=== PATIENT | male | born 1960 | race Caucasian/White ===

== ENCOUNTER 2024-09-18 14:20 | Outpatient (AMB) | payer OTHER, SELFPAY ==
--- OUTSIDE RECORDS SUMMARY | 2024-09-18 14:22 | XMS_ITS | Patient Health Record ---
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 ug/mL Albumin,Urine mg/day 26 0-29 mg/day Normal: 0 - 29 Moderately increased: 30 - 300 Severely increased: >300 Comp. Metabolic Panel ([id number] Reviewed date:09/14/2024 07:58:10 AM Interpretation: Performing Lab:[facility], [address] [facility], Phone - [phone], Director - MDJodry Notes/Report: Glucose 102 70-99 mg/dL BUN 35 8-27 mg/dL Creatinine 2.56 0.76-1.27 mg/dL eGFR 27 >59 mL/min/1.73 BUN/Creatinine Ratio 14 10-24 Sodium 142 134-144 mmol/L Potassium 4.1 3.5-5.2 mmol/L Chloride 105 96-106 mmol/L Anion Gap 15.0 10.0-18.0 mmol/L Carbon Dioxide, Total 22 20-29 mmol/L Calcium 9.1 8.6-10.2 mg/dL Protein, Total 6.5 6.0-8.5 g/dL Albumin 4.5 3.9-4.9 g/dL Globulin, Total 2.0 1.5-4.5 g/dL Bilirubin, Total 0.3 0.0-1.2 mg/dL Alkaline Phosphatase 58 44-121 IU/L AST (SGOT) 18 0-40 IU/L ALT (SGPT) 12 0-44 IU/L LP+Non-HDL Cholesterol-[id number] 5 Reviewed date:09/14/2024 07:58:17 AM Interpretation: Performing Lab:[facility], [address] [facility], Phone - [phone], Director - MDJodry Notes/Report: Cholesterol, Total 159 100-199 mg/dL Triglycerides 83 0-149 mg/dL HDL Cholesterol 54 >39 mg/dL VLDL Cholesterol Danny 16 5-40 mg/dL LDL Chol Calc (NIH) 89 0-99 mg/dL Non-HDL Cholesterol 105 0-129 mg/dL Prostate-Specific Ag-[id number] Reviewed date:09/14/2024 07:57:35 AM Interpretation: Performing Lab:[facility], [address] [facility], [place], Phone - [phone], Director - MDJodry Notes/Report: Prostate Specific Ag 7.1 0.0-4.0 ng/mL [place] ECLIA methodology. . According to the [employer], Serum PSA should decrease and remain at undetectable levels after radical prostatectomy. The AUA defines biochemical recurrence as an initial PSA value 0.2 ng/mL or greater followed by a subsequent confirmatory PSA value 0.2 ng/mL or greater. Values obtained with different assay methods or kits cannot be used interchangeably. Results cannot be interpreted as absolute evidence of the presence or absence of malignant disease. Reason For Referral Reason acute renal failure please send to Dr. Rocky Beard Diagnosis 1 Acute kidney failure , unspecified (N17.9) Referral Organization [facility] Referring Provider First Name Lois Referring Provider Last Name Olamide Referring Provider Speciality Internal M edicine Referred Provider Specialty Nephrology General Notes Faxed to [facility] I called the office to make an appt but the referral has to be reviewed prior to scheduling per Rene Christianson Kayla 09/14/2024 03:55:43 PM > Referral Priority Urgent Reason elevated PSA of 7.1 with renal failure Diagnosis 1 Elevated prostate sp ecific antigen [PSA] (R97.20) Referral Organization [facility] Referring Provider First Name Lois Referring Provider Last Name Olamide Referring Provider Speciality Internal M edicine Referred Provider Specialty Urology General Notes referral faxed to [facility], Judy Page 09/17/2024 11:15:37 AM > Referral Priority Routine Medications Medication SIG (Take, Route, Frequency, Duration) Notes Start Date End Date Status amLODIPine Besylate 5 MG 1 tablet Orally Once a day for 30 days 09/14/2024 Active Immunizations Vaccine Route Administration Date Status Comme nts COVID Unknown 12/14/2020 Administered COVID Unknown 01/04/2021 Administered Social History Tobacco Use: Social History Observation Description Date Details (start date - stop date) Never Smoker NA - NA Tobacco Use/Smoking Question Answer Notes Are you a nonsmoker Alcohol Screen (Audit-C) Question Answer Notes Did you have a drink containing alcohol in the p ast year? No Points 0 Interpretation Negative Problems Problem Type SNOMED Code ICD Code Onset Dates Problem Status W/U Status Risk Notes Problem Essential hypertension (33536187) Essential (primary) hypertension (I10) Active confirmed Problem Essential hypertension (34387782) HTN (hypertension), benign (I10) Active confirmed Vital Signs Heart Rate 88 /min 09/14/2024 Temperature 97.3 degrees Fahrenheit 09/14/2024 Blood pressure diastolic 120 mm Hg 09/14/2024 Oximetry 98 % 09/14/2024 Height 75.75 in 09/14/2024 Blood pressure systolic 160 mm Hg 09/14/2024 Weight 226.1 lbs 09/14/2024 BMI 27.7 kg/m2 09/14/2024 Encounters Encounter Location Date Provider Diagnosis [facility] [address] [place] [address] 12/10/2023 LUIS ALBERTO ESPANA Essential (primary) hypertension I10 ; Encounter for general adult medical examination without abnormal findings Z00.00 and Cardiac murmur, unspecified R01.1 [facility] [address] [place] [address] 09/14/2024 Lois Quiñonez Acute renal disease N28.9 ; HTN (hypertension), benign I10 and Impaired fasting blood sugar R73.01 [facility] [address] [place] [address] 09/17/2024 LUIS ALBERTO ESPANA [facility] [address] [facility] [address] [place] [address] 09/17/2024 LUIS ALBERTO ESPANA Assessments Encounter Date Diagnosis (ICD Code) Assessment Notes Treatment Notes Treatment Clinical Notes Section Notes 12/10/2023 Encounter for general adult medical examination without abnormal findings (ICD-10 - Z00.00) Mr. Rubio is a 63 year old gentleman with no significant past medical history here for annual physical. Plan is as follows: Hypertension. His blood pressure is running high in the office today. Most likely whitecoat hypertension. Cut back on sodium intake. Advised appropriate hydration, cardio exercises and weight loss. Advised to monitor resting blood pressure at home. Goal BP is under 130/80. Electrocardiogram is normal sinus rhythm at 57 bpm with no acute ST or T wave changes, normal intervals, no bundle branch blocks Systolic murmur. He is asymptomatic. Ordered echocardiogram for evaluation and baseline. Eye screening. He sees his baby nurse regularly. Dental screening. He sees dentist regularly. Skin screening. No skin issues at this point. Colon cancer screening. He had his colonoscopy done in 2013 and is on [id number]. Immunizations. Declines vaccinations. Screening blood work before next appointment. General health concerns discussed with patient. Scribe services used to formulate this note under HIPAA compliance and under [place] law mandated for scribe services. Patient aware of service. Verbal consent and written consent taken from the patient. Patient understands and verbalizes understanding of the scribes services and all questions answered regarding scribes services. Patient agrees to use of scribes services. 09/14/2024 Acute renal disease (ICD-10 - N28.9) 64-year-old gentleman with no previous diagnosis of kidney disease or hypertension came in for an office visit found to have uncontrolled hypertension and elevated BUN and creatinine. Hypertension uncontrolled blood pressure is 160/120. Discussed with patient we have to start medication he feels that he can exercise and lose weight and correct the blood pressure. We have advised that we will start amlodipine 5 mg daily and probably will go up to 10 mg daily. He is already following a low sodium diet. We will recheck blood pressure in a week and adjust further medications. We will also set up an urgent appointment with Dr. Hidalgo for further adjustment of antihypertensives further workup for elevated creatinine, BUN is 35 and creatinine is 2.5 no previous labs to compare with. Elevated BUN and creatinine most likely chronic kidney disease stage IIIb due to uncontrolled hypertension/hyperte nsive nephrosclerosis.acut e kidney injury cannot be ruled out as patient has been using NSAID therapy Nephrology Dr. Rocky beard has been informed and office referral will be done today We will also obtain an urgent ultrasound of the kidneys with bladder to rule out any obstructive cause we have advised the patient to absolutely stop any kind of ibuprofen or any kind of NSAID therapy he will use Tylenol as needed. We will repeat BMP in 2 weeks patient will continue with hydration further workup will be done at nephrology office Elevated PSA of 7.1 previous prostate exam was unremarkable at the office, no previous PSA levels available we will refer him to a urologist impaired fasting glucose, patient reported blood sugars of 100 128 at home, will check HbA1c Plan was discussed in detail with the patient is aware and will follow through 09/14/2024 HTN (hypertension), benign (ICD-10 - I10) 64-year-old gentleman with no previous diagnosis of kidney disease or hypertension came in for an office visit found to have uncontrolled hypertension and elevated BUN and creatinine. Hypertension uncontrolled blood pressure is 160/120. Discussed with patient we have to start medication he feels that he can exercise and lose weight and correct the blood pressure. We have advised that we will start amlodipine 5 mg daily and probably will go up to 10 mg daily. He is already following a low sodium diet. We will recheck blood pressure in a week and adjust further medications. We will also set up an urgent appointment with Dr. Hidalgo for further adjustment of antihypertensives further workup for elevated creatinine, BUN is 35 and creatinine is 2.5 no previous labs to compare with. Elevated BUN and creatinine most likely chronic kidney disease stage IIIb due to uncontrolled hypertension/hyperte nsive nephrosclerosis.acut e kidney injury cannot be ruled out as patient has been using NSAID therapy Nephrology Dr. Rocky beard has been informed and office referral will be done today We will also obtain an urgent ultrasound of the kidneys with bladder to rule out any obstructive cause we have advised the patient to absolutely stop any kind of ibuprofen or any kind of NSAID therapy he will use Tylenol as needed. We will repeat BMP in 2 weeks patient will continue with hydration further workup will be done at nephrology office Elevated PSA of 7.1 previous prostate exam was unremarkable at the office, no previous PSA levels available we will refer him to a urologist impaired fasting glucose, patient reported blood sugars of 100 128 at home, will check HbA1c Plan was discussed in detail with the patient is aware and will follow through 12/10/2023 Essential (primary) hypertension (ICD-10 - I10) Mr. Rubio is a 63 year old gentleman with no significant past medical history here for annual physical. Plan is as follows: Hypertension. His blood pressure is running high in the office today. Most likely whitecoat hypertension. Cut back on sodium intake. Advised appropriate hydration, cardio exercises and weight loss. Advised to monitor resting blood pressure at home. Goal BP is under 130/80. Electrocardiogram is normal sinus rhythm at 57 bpm with no acute ST or T wave changes, normal intervals, no bundle branch blocks Systolic murmur. He is asymptomatic. Ordered echocardiogram for evaluation and baseline. Eye screening. He sees his baby nurse regularly. Dental screening. He sees dentist regularly. Skin screening. No skin issues at this point. Colon cancer screening. He had his colonoscopy done in 2013 and is on [id number]-[id number]. Immunizations. Declines vaccinations. Screening blood work before next appointment. General health concerns discussed with patient. Scribe services used to formulate this note under HIPAA compliance and under [place] law mandated for scribe services. Patient aware of service. Verbal consent and written consent taken from the patient. Patient understands and verbalizes understanding of the scribes services and all questions answered regarding scribes services. Patient agrees to use of scribes services. 12/10/2023 Cardiac murmur, unspecified (ICD-10 - R01.1) Mr. Rubio is a 63 year old gentleman with no significant past medical history here for annual physical. Plan is as follows: Hypertension. His blood pressure is running high in the office today. Most likely whitecoat hypertension. Cut back on sodium intake. Advised appropriate hydration, cardio exercises and weight loss. Advised to monitor resting blood pressure at home. Goal BP is under 130/80. Electrocardiogram is normal sinus rhythm at 57 bpm with no acute ST or T wave changes, normal intervals, no bundle branch blocks Systolic murmur. He is asymptomatic. Ordered echocardiogram for evaluation and baseline. Eye screening. He sees his baby nurse regularly. Dental screening. He sees dentist regularly. Skin screening. No skin issues at this point. Colon cancer screening. He had his colonoscopy done in 2013 and is on [id number]-[id number]. Immunizations. Declines vaccinations. Screening blood work before next appointment. General health concerns discussed with patient. Scribe services used to formulate this note under HIPAA compliance and under [place] law mandated for scribe services. Patient aware of service. Verbal consent and written consent taken from the patient. Patient understands and verbalizes understanding of the scribes services and all questions answered regarding scribes services. Patient agrees to use of scribes services. 09/14/2024 Impaired fasting blood sugar (ICD-10 - R73.01) 64-year-old gentleman with no previous diagnosis of kidney disease or hypertension came in for an office visit found to have uncontrolled hypertension and elevated BUN and creatinine. Hypertension uncontrolled blood pressure is 160/120. Discussed with patient we have to start medication he feels that he can exercise and lose weight and correct the blood pressure. We have advised that we will start amlodipine 5 mg daily and probably will go up to 10 mg daily. He is already following a low sodium diet. We will recheck blood pressure in a week and adjust further medications. We will also set up an urgent appointment with Dr. Hidalgo for further adjustment of antihypertensives further workup for elevated creatinine, BUN is 35 and creatinine is 2.5 no previous labs to compare with. Elevated BUN and creatinine most likely chronic kidney disease stage IIIb due to uncontrolled hypertension/hyperte nsive nephrosclerosis.acut e kidney injury cannot be ruled out as patient has been using NSAID therapy Nephrology Dr. Rocky beard has been informed and office referral will be done today We will also obtain an urgent ultrasound of the kidneys with bladder to rule out any obstructive cause we have advised the patient to absolutely stop any kind of ibuprofen or any kind of NSAID therapy he will use Tylenol as needed. We will repeat BMP in 2 weeks patient will continue with hydration further workup will be done at nephrology office Elevated PSA of 7.1 previous prostate exam was unremarkable at the office, no previous PSA levels available we will refer him to a urologist impaired fasting glucose, patient reported blood sugars of 100 128 at home, will check HbA1c Plan was discussed in detail with the patient is aware and will follow through Plan Of Treatment Pending Test Test Name Order Date Echocardiogram 12/10/2023 US Renal and Bladder 09/14/2024 Hemoglobin [id number] 09/14/2024 Comp. Metabolic Panel [id number] 2023 Future Test Test Name Order Date PSA, SCREEN 12/04/2021 COMPREHENSIVE METABOLIC PANEL 12/05/2022 LIPID PANEL 12/05/2022 PSA, SCREEN 12/05/2022 Albumin, 24-Hr [id number] 12/10/2023 Lipid [id number] 12/10/2023 Comp. Metabolic Panel ([id number] 2023 PSA Total (Reflex To Free)-[id number] 2023 Next Appt Details Provider Name:LUIS ALBERTO ESPANA , 09/28/2024 08:00:00 AM, [address] [place] [address], [phone], Provider Name:LUIS ALBERTO ESPANA , 12/15/2024 08:15:00 AM, [address] [place] [address], [place], [address], Insurance Providers Payer Name Payer Address Payer Phone Subscriber Number Group Number Insured Name Patient Relationship to Insured Coverage Start Date Coverage End Date [facility] [address] [place] [phone] [id number] Yefri Rubio Self - patient is the insured Medical (General) History Medical History History ICD Code Personal history of COVID-19
--- OUTSIDE RECORDS SUMMARY | 2024-09-18 14:22 | XMS_ITS ---
Author Organization [facility] Address [address] [facility] [address] [place] [address] Care Team Providers Care Gear Room Keeper Name Role Phone MALORIE LUIS ALBERTO Primary Care Provider REASON FOR VISIT Office note request Encounters Encounter Location Date Provider Diagnosis [facility] [address] [facility] [address] [place] [address] 09/17/2024 LUIS ALBERTO ESPANA Plan Of Treatment Next Appt Details Provider Name:LUIS ALBERTO ESPANA , 09/28/2024 08:00:00 AM, [address] [place] [address], [place], [address], Provider Name:LUIS ALBERTO ESPANA , 12/15/2024 08:15:00 AM, [address] [place] [address], [place], [address], Progress Notes * Yefri BYERSDOB:1959 (64 yo M)Acc No.[id number]:09/17/2024 Patient:?Yefri BYERS :1960???Age:64 Y???Sex:Male Address:[place] [address] * true * Date:? Generated for Printi haile/Anibalg/eTransmitting on:?09/18/2024 02:21 PM EST
--- OUTSIDE RECORDS SUMMARY | 2024-09-18 14:22 | XMS_ITS ---
Author Organization [facility] Address [address] [place] [address] Care Team Providers Care Records And Information Manager Name Role Phone LUIS ALBERTO ESPANA Primary Care Provider Lois Quiñonez Unavailable [phone] Allergies No Known Allergies Reason For Referral Reason acute renal failure please send to Dr. Rocky Beard Diagnosis 1 Acute kidney failure , unspecified (N17.9) Referral Organization [facility] Referring Provider First Name Lois Referring Provider Last Name Olamide Referring Provider Speciality Internal M edicine Referred Provider Specialty Nephrology General Notes Faxed to [facility]. I called the office to make an appt but the referral has to be reviewed prior to scheduling per Rene Christianson Kayla 09/14/2024 03:55:43 PM > Referral Priority Urgent Reason elevated PSA of 7.1 with renal failure Diagnosis 1 Elevated prostate sp ecific antigen [PSA] (R97.20) Referral Organization [facility] Referring Provider First Name Lois Referring Provider Last Name Olamide Referring Provider Speciality Internal M edicine Referred Provider Specialty Urology General Notes [facility] 09/17/2024 11:15:37 AM > Referral Priority Routine REASON FOR VISIT Lab results Medications Medication SIG (Take, Route, Frequency, Duration) Notes Start Date End Date Status amLODIPine Besylate 5 MG 1 tablet Orally Once a day for 30 days 09/14/2024 Active Social History Tobacco Use: Social History Observation [...] W/U Status Risk Notes Problem Essential hypertension ([id number]) HTN (hypertensi on), benign (I10) Active confirmed Vital Signs Temperature 97.3 degrees Fahrenheit 09/14/20 Oximetry 98 % 09/14/2024 Heart Rate 88 /min 09/14/2024 Blood pressure systolic 160 mm Hg 09/14/20 24 Blood pressure diastolic 120 mm Hg 024 Weight 226.1 lbs 09/14/2024 BMI 27.7 kg/m2 09/14/2024 Height 75.75 in 09/14/2024 Encounters Encounter Location Date Provider Diagnosis [facility] [address] [address] 09/14/2024 [place] Alam Acute renal disease N28.9 ; HTN (hypertension), benign I10 and Impaired fasting blood sugar R73.01 Assessments Encounter Date Diagnosis (ICD Code) Assessment Notes Treatment Notes Treatment Clinical Notes Section Notes 09/14/2024 Acute renal disease (ICD-10 - N28.9) [...] aware and will follow through 09/14/2024 HTN (hypertension ), benign (ICD-10 - I10) 64-year-old gentleman with [...] is aware and will follow through 09/14/2024 Impaired fasting blood sugar (ICD-10 - [...] and will follow through Plan Of Treatment Medication Medication Name Sig Start Date Stop Date Notes amLODIPine Besylate 5 MG 1 tablet Orally Once a day for 30 days 09/14/2024 Pending Test Test Name Order Date US Renal and Bladder 09/14/2024 Hemoglobin [id number] 09/14/2024 Comp. Metabolic Panel [id number] 2023 Referrals Referral Date Details 09/14/2024 09/14/2024, acute re nal failure please send to Dr. Rocky Beard 09/14/2024 09/14/2024, elevated PSA of 7.1 with renal failure Next Appt Details Follow Up: 2 Weeks bp check , labs, Reason: Provider Name:LUIS ALBERTO ESPANA , 09/28/2024 08:00:00 AM, [address] [place] [address] [address], [place], [address], Provider Name:LUIS ALBERTO ESPANA , 12/15/2024 08:15:00 AM, [address] [place] [address] [address], [place], [address], Progress Notes * Yefri BYERSDOB:1959 (64 yo M)Acc No.[id number]:09/14/2024 Progress Notes Patient:?Yefri BYERS Provider:?Lois Quiñonez DOB:1960???Age:64 Y???Sex:Male Chucho e:09/14/2024 Address:[address] [place] [address] [facility] [id number] Pcp:LUIS ALBERTO ESPANA Subjective: * Chief Complaints: * ???Lab results * HPI: ???Internal Medicine:?Mr. Byers is a 64 year old gentleman with no significant past medical history? who has been seeing Dr. Yap and was given? lab work prescription but never completed his blood work was finally able to do his routine lab work on September 01 which showed elevated PSA of 7.1, creatinine of 2.6 BUN 35 no prior labs to compare with.? Patient was brought in to the office for further investigation. Vitals showed elevated blood pressure of 160/120.? Patient is not on any medication and denies any previous history of hypertension however he is mentioning to me that his blood pressure has been running high for the last few months he attributed that to weight gain of more than 20 pounds.? He has been working on weight loss and diet control. Patient has no dysuria he has no hematuria denies or difficulty urinating. He did notice that he was getting up frequently in the night to urinate, he checked his blood sugars which were ranging from 100-120.? He has no history of diabetes patient also has been taking NSAID therapy he states he was taking 200 mg of ibuprofen once a day 3 times a week. * ROS:?General/Constitutional:?Overall health?Good.?Change in appetite?denies.?Chills?denies.?Fever?denies.?Night sweats?denies.?Sleep disturbance?denies.?Weight gain?denies.?Weight loss?denies.?Neurologic:?Difficulty speaking?denies.?Dizziness?denies.?Gait abnormality?denies.?Headache?denies.?Loss of strength?denies.?Memory loss?denies.?Seizures?denies.?Tingling/Numbness?denies .?Ophthalmologic:?Blurred vision?denies.?Discharge?denies.?Dry eye?denies.?Red eye?denies.?ENT:?Change in Voice?Denies.?Cold Symptoms?Denies.?Cough?Denies.?Dizziness?Denies.?Nasal Congestion?Denies.?Otalgia?Denies.?postnasal drip?Denies.?Blocked ear?denies.?Nosebleed?denies.?Snoring?denies.?Cardiovascular:?Diaphoresis?Denies.?Pedal Edema?Denies.?PND (Paroxsymal nocturnal dyspnea)?Denies.?Chest pain?denies.?Difficulty laying flat?denies.?Dyspnea on exertion?denies.?Heart murmur?denies.?Orthopnea?denies.?Respiratory:?Snoring?denies.?Asthma?denies.?Cough?denies.?Shortness of breath with exertion?denies.?Sputum production?denies.?Wheezing?denies.?Gastrointestinal:?Change in bowel habits?denies.?Constipation?denies.?Decreased appetite?denies.?Diarrhea?denies.?Heartburn?denies.?Nausea?denies.?Vomiting?ronda es.?Musculoskeletal:?tingling/numbness?Denies.?myalgias?Denies.?Joint Swelling?Denies.?extremeties?normal.?Arthritis?denies.?Back problems?denies.?Carpal tunnel?denies.?Joint stiffness?denies.?Muscle aches?denies.?Endocrine:?Bowel Changes?Denies.?Breast Discharge?Denies.?poor libido?Denies.?Cold intolerance?denies.?Excessive sweating?denies.?Excessive thirst?denies.?Frequent urination?denies.?Thyroid problems?denies.?Skin:?Bruising?Denies.?Eczema?denies.?Hair changes?denies.?Rash?denies.?Skin lesion(s)?denies.?Psychiatric:?Anxiety?denies.?Depressed mood?denies.?Difficulty sleeping?denies.?Nervous breakdown?denies.?Substance abuse?denies.?Urology:?abnormal menstrual bleeding?denies.?blood in urine?denies.?burning on urination?denies.?difficulty urinating?denies.?discharge?denies.?dysuria?denies.? * Medical History:? * Surgical History:? * Hospitalization/Major Diagno stic Procedure:? * Social History:?Tobacco Use:?Tobacco Use/Smoking?Are you a?nonsmoker ???Drugs/Alcohol:?Alcohol Screen (Audit-C)?Did you have a drink containing alcohol in the past year??No ?Points?0 ?Interpretation?Negative ???Miscellaneous:?Exercise: yes, 5 days a week. ?Marital status: . ?Occupation: Works full-time. * Medications:?None * Allergies:?N.K.D.A.no[Allerg ies Verified] Objective: * Vitals:?Temp:97.3F, Oxygen s at %:98%, HR:88/min, BP:160/120mm Hg, Wt:226.1lbs, BMI:27.7Index, Ht: 75.75 in. * ???Past Orders: ???Lab:Prostate-Specific Ag- [id number] (Order Date - 09/11/2024) (Collection Date & Time - 09/11/2024 07:23 AM) ? Value Reference Range ?Prostate Specific Ag 7.1 H 0.0-4.0 - ng/mL ???Lab:Comp. Metabolic Panel ([id number] (Order Date - 09/11/2024) (Collection Date & Time - 09/11/2024 07:23 AM) ? Value Reference Range ?Glucose 102 H 70-99 - mg/d L ?BUN 35 H 8-27 - mg/dL ?Creatinine 2.56 H 0.76-1.27 - mg/dL ?BUN/Creatinine Ratio 14 10-24 - ?Sodium 142 134-144 - mmo l/L ?Potassium 4.1 3.5-5.2 - mmol/L ?Chloride 105 96-106 - mm ol/L ?Anion Gap 15.0 10.0-18.0 - mmol/L ?Carbon Dioxide, Total 22 20-29 - mmol/L ?Calcium 9.1 8.6-10.2 - m g/dL ?Protein, Total 6.5 6.0-8 .5 - g/dL ?Albumin 4.5 3.9-4.9 - g/ dL ?Globulin, Total 2.0 1.5- 4.5 - g/dL ?Bilirubin, Total 0.3 0.0 -1.2 - mg/dL ?Alkaline Phosphatase 58 44-121 - IU/L ?AST (SGOT) 18 0-40 - IU /L ?ALT (SGPT) 12 0-44 - IU /L ?eGFR 27 L >59 - mL/min/1. 73 ???Lab:LP+Non-HDL Cholestero [id number] (Order Date - 09/11/2024) (Collection Date & Time - 09/11/2024 07:23 AM) ? Value Reference Range ?Cholesterol, Total 159 1 00-199 - mg/dL ?Triglycerides 83 0-149 - mg/dL ?HDL Cholesterol 54 >39 - mg/dL ?VLDL Cholesterol Danny 16 5-40 - mg/dL ?LDL Chol Calc ([facility]) 89 0-99 - mg/dL ?Non-HDL Cholesterol 105 0-129 - mg/dL * Examination: ???General Examination: ?Psychiatry?Normal.?GENERAL APPEARANCE:?Well developed, well nourished, in no acute distress.?MUSCULOSKELETAL:?Normal.?HEAD:?Normocephalic, atraumatic.?EYES:?Pupils equal, round, reactive to light and accommodation, sclera non-icteric.?EARS:?Normal.?ORAL CAVITY:?Normal.?THROAT:?Clear.?OROPHARYNX?Normal.?SINUSES?Normal.?NECK/THYROID:?Neck supple, full range of motion, no cervical lymphadenopathy.?SKIN:?Warm and dry, no suspicious lesions.?HEART:?regular rate and rhythm,? 2/6?systolic murmur at apex,.?LUNGS:?Normal.?BREASTS:?__.?ABDOMEN:?Soft, nontender, nondistended, bowel sounds present, normal.?EXTREMITIES:?Normal.?PERIPHERAL PULSES:?Normal.?NEUROLOGIC:?Nonfocal,? 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 .? Assessment: * Assessment: 1.?Acute renal disease - N28 .9???2.?HTN (hypertension), benign - I10???3.?Impaired fasting blood sugar - R73.01??? 64-year-old gentleman with n o previous diagnosis of kidney disease or hypertension came in for an office visit found to have uncontrolled hypertension and elevated BUN and creatinine. Hypertension uncontrolled blood pressure is 160/120.? Discussed with patient we have to start medication he feels that he can exercise and lose weight and correct the blood pressure.? We have advised that we will start amlodipine 5 mg daily and probably will go up to 10 mg daily. He is already following a low sodium diet.? We will recheck blood pressure in a week and adjust further medications. We will also set up an urgent appointment with Dr. Hidalgo for further adjustment of antihypertensives further workup for elevated creatinine, BUN is 35 and creatinine is 2.5 no previous labs to compare with. Elevated BUN and creatinine most likely chronic kidney disease stage IIIb due to uncontrolled hypertension/hypertensive nephrosclerosis.acute kidney injury cannot be ruled out as [...] patient is aware and will follow through Plan: * Treatment: 2.?Impaired fasting blood toribio gar?LAB: Hemoglobin [id number] 3.?Others? Start amLODIPine Besylate Tablet, 5 MG, 1 tablet, Orally, Once a day, 30 days, 30, Refills 3.? Referral To:Nephrology ?Reason:acute renal failure please send to Dr. Rocky Beard ? Referral To:Urology ?Reason:elevated PSA of 7.1 with renal failure * Procedure Codes:?3077F SYST BP = 140 MM HG6 [id number] DIAST BP = 90 MM HG * Follow Up:?2 Weeks bp check , labs * * Sign off status: Completed true * Provider:?Lois Quiñonez, Date:?09/14/2024 Generated for Keila be/Timbo/Clarenceitting on:?09/18/2024 02:21 PM EST History and Physical Notes * HPI (History of Present Illness) Category Sub-Category Detail Notes Category Not es Internal Medicine Mr. Byers is a 64 year old gentleman with no significant past medical history who has been seeing Dr. Yap and was given lab work prescription but never completed his blood work was finally able to do his routine lab work on September 01 which showed elevated PSA of 7.1, creatinine of 2.6 BUN 35 no prior labs to compare with. Patient was brought in to the office for further investigation. Vitals showed elevated blood pressure of 160/120. Patient is not on any medication and denies any previous history of hypertension however he is mentioning to me that his blood pressure has been running high for the last few months he attributed that to weight gain of more than 20 pounds. He has been working on weight loss and diet control. Patient has no dysuria he has no hematuria denies or difficulty urinating. He did notice that he was getting up frequently in the night to urinate, he checked his blood sugars which were ranging from 100-120. He has no history of diabetes patient also has been taking NSAID therapy he states he was taking 200 mg of ibuprofen once a day 3 times a week. Examination Category Sub-Category Detail Notes Category Not es General Examination GENERAL APPEARANCE: Well dev eloped, well nourished, in no acute distress HEAD: Normocephalic, atrau matic EYES: Pupils equal, round, reactive to light and accommodation, sclera non-icteric EARS: Normal THROAT: Clear NECK/THYROID: Neck supple, full ra nge of motion, no cervical lymphadenopathy HEART: regular rate and rhy thm, 2/6 systolic murmur at apex, LUNGS: Normal ABDOMEN: Soft, nontender, non distended, bowel sounds present, normal NEUROLOGIC: Nonfocal, appropriat e motor strength normal upper and lower extremities, sensory exam intact SKIN: Warm and dry, no trent picious lesions EXTREMITIES: Normal PERIPHERAL PULSES: Normal BREASTS: __ MUSCULOSKELETAL: Normal MALE GENITOURINARY: __ FEMALE GENITOURINARY: __ ORAL CAVITY: Normal PODIATRIC: Normal Psychiatry Normal OROPHARYNX Normal SINUSES Normal Sand Screener Consultation Request Notes Referral Date Referring Provider Referred Provider Not es 09/14/2024 Lois Quiñonez , acute renal ger maik please send to Dr. Rocky Beard 09/14/2024 Lois Quiñonez , elevated PSA of 7.1 with renal failure
--- NOTE | 2024-09-18 14:25 | HO.NEPHOV ---
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 He was never hypertensive before and was started on Amlodipine by PCP couple of days ago. Patient follows regularly with PCP and has never had hypertension. Labs were also ordered at that time and showed elevated creatinine that prompted an urgent visit with Nephrology. Patient had no acute medical complaints. Denied headache or visual disturbances. No changes to bowel or bladder habits. Denies dysuria, dribbling, or feeling of incomplete bladder emptying. No chest pain/pressure, palpitations. Denies shortness or breath or difficulty breathing. No fever, chills, nausea, vomiting, diarrhea. No H/O excess NSAID use. He has been having some pedal edema recently. He denied any other systemic symptoms. His BP remains uncontrolled. He is concerned about his NATHANIEL. [facility] Medical History (Updated 09/30/24 @ 23:02 by Reymundo Tian MD) NATHANIEL (acute kidney injury) Acute retention of urine Hypertension Family History Mother Diabetes type 2 Father Hypertension Social History Household Members: Family Housing: House Do you presently have visiting nurse or other home services: No Alcohol intake: never Patient Tobacco Use Status: Never used Tobacco service: Yes Review of Systems Const All systems reviewed & are unremarkable except as noted in HPI and below Physical Exam Vital Signs: Last Vital Signs Pulse 88 09/18/24 14:27 BP 170/100 H 09/18/24 14:27 Pulse Ox 100 09/18/24 14:27 Oxygen Delivery Method Room Air 09/18/24 14:27 BMI result Body Mass Index 28.0 Const General: comfortable and no acute distress Orientation/consciousness: patient oriented x3 HEENT Head: Yes normocephalic Mouth: Normal oral and palatal mucosa present Eyes EOM: EOMs intact bilaterally Neck Neck: Yes supple Resp Auscultation: clear to auscultation bilaterally Cardio Jugular venous distension: no JVD Rate: regular rate GI Palpation (GI): Soft to palpation Auscultation: normal bowel sounds General: Yes no CVA tenderness Back/Spine/Pelvis Back: no CVA tenderness Skin General skin exam: no rashes or lesions noted Neuro General: patient oriented x3 and moves all extremities Extrem General: Yes edema Results Reviewed Nephrology Results: Hgb 12.7 g/dl (14.0-18.0) L 09/19/24 WBC 8.1 X10*3/uL (4.8-10.8) 09/19/24 Plt Count 186 X10*3/uL (160-400) 09/19/24 Sodium 138 mmol/L (135-145) 09/21/24 Potassium 3.7 mmol/L (3.3-5.1) 09/21/24 Chloride 101 mmol/L (96-108) 09/21/24 Carbon Dioxide 27 mmol/L (22-29) 09/21/24 BUN 28 mg/dL (9-16) H 09/21/24 Creatinine 1.98 mg/dL (0.5-1.4) H 09/21/24 Calcium 8.9 mg/dL (8.4-10.2) 09/21/24 Phosphorus 3.5 mg/dL (2.7-4.5) 09/18/24 Urine Protein Negative mg/dL (Neg-Trace) 09/18/24 Urine Creatinine 58.33 mg/dL 09/18/24 Protein/Creatinin Ratio TNP 09/18/24 Renal US 09/19/24 Assessment & Plan Assessment & Plan (1) NATHANIEL (acute kidney injury): Code(s): N17.9 - Acute kidney failure, unspecified Category: Medical (2) Hypertension: Code(s): I10 - Essential (primary) hypertension Category: Medical Qualifiers: Hypertension type: primary hypertension Qualified Code(s): I10 - Essential (primary) hypertension (3) Edema: Code(s): R60.9 - Edema, unspecified Category: Medical Qualifiers: Edema type: localized Qualified Code(s): R60.0 - Localized edema Plan NATHANIEL due to unknown etiology. Differential diagnosis broad Stat Renal USS ordered. Stat blood work ordered Started lasix 40 mg daily; Discontinued Amlodipine Started Labetalol and Hydralazine All possibilities including obstructive causes/RPGN explained May need renal biopsy if work up unyielding Answered all questions;Time spent for co ordinating care/visit/documentation 59 mts Orders: Orders Anti DNA DS Antibody 09/18/24 MD Calvin Hernandez7.9 - Acute kidney failure, unspecified Myeloperoxidase Antibody 09/18/24 MD Calvin Hernandez7.9 - Acute kidney failure, unspecified Complement C3 09/18/24 Reymundo Tian MD N17.9 - Acute kidney failure, unspecified Immunofixation Pnl, Serum 09/18/24 MD Calvin Hernandez7.9 - Acute kidney failure, unspecified Immunofixation, Random Urine 09/18/24 Reymundo Tian MD N17.9 - Acute kidney failure, unspecified UA and rflx microscopic 09/18/24 Reymundo Tian MD N17.9 - Acute kidney failure, unspecified PSA, Ultra Sensitive 09/18/24 Reymundo Tian MD N17.9 - Acute kidney failure, unspecified Complete Blood Count Auto Diff 09/18/24 Reymundo Tian MD N17.9 - Acute kidney failure, unspecified Prothrombin Time INR 09/18/24 Reymundo Tian MD N17.9 - Acute kidney failure, unspecified Albumin Level 09/18/24 Reymundo Tian MD N17.9 - Acute kidney failure, unspecified Hemoglobin A1c 09/18/24 Reymundo Tina MD N17.9 - Acute kidney failure, unspecified Proteinase 3 PR3 Antibodies 09/18/24 Reymundo Tian MD N17.9 - Acute kidney failure, unspecified Anti Glomerular Basement Memb 09/18/24 MD Calvin Hernandez7.9 - Acute kidney failure, unspecified Complement C4 09/18/24 MD Calvin Hernandez7.9 - Acute kidney failure, unspecified Scleroderma 70 Antibody 09/18/24 MD Calvin Hernandez7.9 - Acute kidney failure, unspecified Phospholipase A2 Receptor Pnl 09/18/24 Reymundo P Jaylan, MD N17.9 - Acute kidney failure, unspecified Hepatitis B Surface Antibody 09/18/24 Reymundo Tian MD N17.9 - Acute kidney failure, unspecified Hepatitis B Core Antibody 09/18/24 Reymundo Tian MD N17.9 - Acute kidney failure, unspecified Electrolytes 09/18/24 Reymundo Tian MD N17.9 - Acute kidney failure, unspecified Calcium 09/18/24 Reymundo Tian MD N17.9 - Acute kidney failure, unspecified Blood Urea Nitrogen 09/18/24 Reymundo Tian MD N17.9 - Acute kidney failure, unspecified Creatinine 09/18/24 Reymundo Tian MD N17.9 - Acute kidney failure, unspecified Phosphorus 09/18/24 Reymundo Tian MD N17.9 - Acute kidney failure, unspecified Protein Creatinine Ratio, Ur 09/18/24 Reymundo Tian MD N17.9 - Acute kidney failure, unspecified US renal BI 09/18/24 Reymundo Tian MD N17.9 - Acute kidney failure, unspecified Medications: New labetalol 200 mg PO BID 60 tabs 1RF Reymundo Tian MD hydralazine 25 mg PO BID 60 tabs 1RF Reymundo Tian MD furosemide 40 mg PO DAILY 10 tabs 0RF Reymundo Tian MD On Hold furosemide Hold Comment: Resume on 09/29/24. hold until seen by your senior client advisor 40 mg PO DAILY 10 tabs 0RF Rolando Waller MD Coding Level of Care Code New Pt Level 5 (22924) Diagnoses NATHANIEL (acute kidney injury) N17.9 Primary hypertension I10 Hypertension type: primary hypertension Localized edema R60.0 Edema type: localized
[2024-09-18 14:27] VITALS: BP 170/100; PULSE 88; O2SAT 100; BMI 28.0
== END 2024-09-18 15:05 | disposition home or self-care (01) ==
PROVIDERS: PCP Hospitalist; Visit Provider Internal Medicine Nephrology
DX: N17.9 Acute kidney failure, unspecified (principal); I10 Essential (primary) hypertension; R60.0 Localized edema
CPT/HCPCS: 99205

== ENCOUNTER 2024-09-18 14:20 | Outpatient (REF) | payer OTHER, SELFPAY ==
--- NOTE | ~2024-09-18 | US_ITS ---
EXAMINATION: US RETROPERITONEAL LIMITED (RENAL ONLY) CLINICAL INFORMATION: Acute renal failure. COMPARISON: None available. TECHNIQUE: Grayscale and Doppler images of the kidneys were obtained. FINDINGS: RIGHT KIDNEY: 12.3 x 6.3 x 5.8 cm (SAG x AP x TRV). The kidney is normal in size, contour, and echogenicity. Renal cortical thickness is normal. Moderate to severe hydroureteronephrosis. LEFT KIDNEY: 13.3 x 6.2 x 5.7 cm (SAG x AP x TRV). The kidney is normal in size, contour, and echogenicity. Renal cortical thickness is normal. Moderate to severe hydroureteronephrosis. Bladder distended with a volume of 1426.5 mL. Ureteral jets not identified. Partially visualized prostatomegaly with a volume of 48 mL. US/US renal BI IMPRESSION: 1. Moderate to severe bilateral hydroureteronephrosis. 2. Distended urinary bladder with a volume of 1426.5 mL. Ureteral jets not identified. 3. Partially visualized prostatomegaly. Electronically signed by: Baldemar Spears MD 09/18/2024 10:03 PM [facility]
[2024-09-18 15:34] LABS: MANUAL DIFF FLAG NO
[2024-09-18 15:52] LABS: Basophils Percent Auto 0.4 % (0-2); Eosinophils Absolute Auto 0.1 X10*3/uL (0.0-0.4); Eosinophils Percent Auto 1.1 % (0-4); Hematocrit 36.9 % (42.0-52.0); Hemoglobin 13.2 g/dl (14.0-18.0); Imm Gran Abs Auto 0.02 X10*3/uL (0.00-0.03); Imm Gran Pct Auto 0.2 % (0.0-0.4); Lymphocytes Absolute Auto 1.3 X10*3/uL (1.2-4.9); Lymphocytes Percent Auto 16.6 % (20-40); Mean Corpuscular HGB Conc 35.8 g/dl (31.0-36.0); Mean Corpuscular Hemoglobin 31.1 pg (27.0-33.0); Mean Corpuscular Volume 86.8 fL (80.0-98.0); Mean Platelet Volume 9.7 fL (9.4-12.4); Monocytes Absolute Auto 0.5 X10*3/uL (0.1-1.2); Monocytes Percent Auto 6.4 % (2-11); Neutrophils Absolute Auto 6.1 x10*3/uL (2.0-8.3); Neutrophils Percent Auto 75.3 % (45-73); Platelet Count 201 X10*3/uL (160-400); Red Blood Count 4.25 X10*6/uL (4.60-5.80); Red Cell Distribution Width 12.3 % (11.0-16.0); White Blood Count 8.1 X10*3/uL (4.8-10.8)
[2024-09-18 15:53] LABS: Prothrombin Time 11.2 SEC (10.9-12.4)
[2024-09-18 16:08] LABS: Appearance Urine Clear; Color Urine Yellow; Glucose Urine UA Negative (Negative); Leukocyte Esterase Urine Negative (Negative); Nitrite Urine Negative (Negative); PH 5.5 (5.0-9.0); Urine Blood Negative (Negative); Urine Ketones Negative (Negative); Urine Protein Negative (Neg-Trace)
[2024-09-18 16:27] LABS: Albumin Level 4.7 g/dL (3.5-5.0); Anion Gap 14 (12-20); Blood Urea Nitrogen 38 mg/dL (9-16); Calcium 9.7 mg/dL (8.4-10.2); Carbon Dioxide 26 mmol/L (22-29); Chloride 105 mmol/L (96-108); Estimated Glomerular Filt Rate 19; Phosphorus 3.5 mg/dL (2.7-4.5); Potassium 3.8 mmol/L (3.3-5.1); Sodium 141 mmol/L (135-145)
[2024-09-18 16:38] LABS: Estimated Average Glucose 105 mg/dL; Hemoglobin A1C 118.2788 umol/L; Hemoglobin A1c % 5.3 % (<6.0); Total Hemoglobin (HGBA1C) 3391.6079 umol/L
[2024-09-18 16:43] LABS: Creatinine Urine 58.33 mg/dL; Total Protein Urine Random < 7 mg/dL (<12)
[2024-09-19 04:55] LABS: HBS Num1 0.44 mIU/mL (0-7.99); HBc Num1 0.11 S/CO (0.00-0.79); Hepatitis B Core Antibody Nonreactive (Nonreactive); ~Hepatitis B Surface Antibody NONREACTIVE (Nonreactive)
[2024-09-21 15:48] LABS: Complement C3 115 mg/dL (82-185)
[2024-09-21 20:12] LABS: Anti DNA DS Antibody <1 IU/mL; Anti Glomerular Basement Memb <1.0 AI; Myeloperoxidase Antibody <1.0 AI; Proteinase 3 PR3 Antibodies <1.0 AI; Scleroderma 70 Antibody <1.0 NEG AI (<1.0 NEG)
[2024-09-21 22:43] LABS: IgA 155 mg/dL (70-320); IgG 971 mg/dL (600-1540); IgM 106 mg/dL (50-300)
[2024-09-27 15:24] LABS: PSA, Ultra Sensitive 8.64 ng/mL
[2024-10-01 23:13] LABS: Phospholipase A2 IgG ELISA <4 RU/mL; Phospholipase A2 IgG IFA NEGATIVE (NEGATIVE)
== END 2024-09-18 14:21 | disposition home or self-care (01) ==
LOC: HO.LAB 14:20
PROVIDERS: PCP Hospitalist; Visit Provider Internal Medicine Nephrology
DX: N17.9 Acute kidney failure, unspecified (principal); Z12.5 Encounter for screening for malignant neoplasm of prostate; Z13.1 Encounter for screening for diabetes mellitus
CPT/HCPCS: 76775; 80051; 81003; 82040; 82310; 82565; 82570; 82784; 83036; 83520; 84100; 84153; 84156; 84520; 85025; 85610; 86021; 86160; 86225; 86235; 86255; 86334; 86335; 86704; 86706

== ENCOUNTER 2024-09-18 16:23 | Inpatient (IN) | payer OTHER, SELFPAY ==
--- NOTE | ~2024-09-18 | CT_ITS ---
EXAMINATION: CT ABDOMEN AND PELVIS WITHOUT CONTRAST CLINICAL INFORMATION: Urinary retention. COMPARISON: Renal ultrasound done earlier the same day. TECHNIQUE: Multidetector volumetric imaging was performed from the superior aspect of the liver through the pubic symphysis. Sagittal and coronal reformatted images were obtained on the technologist's workstation. This CT examination was performed using dose optimization techniques as appropriate, variously including the following: *Automated exposure control *Adjustment of mA and/or kV according to patient size (this includes techniques or standardized protocols for targeted exams where dose is matched to indication/reason for exam; i.e. extremities or head) *Use of iterative reconstruction technique DLP: 570 mGy-cm FINDINGS: LUNG BASES: The visualized lung bases are unremarkable. LIVER, GALLBLADDER, AND BILIARY TREE: The liver is normal in size, shape, and attenuation. No focal hepatic lesion or biliary ductal dilatation is present. The gallbladder is unremarkable with no evidence of radiopaque gallstones, gallbladder wall thickening, or obvious pericholecystic inflammatory changes. PANCREAS: Unremarkable. SPLEEN: Unremarkable. ADRENAL GLANDS: Unremarkable. KIDNEYS AND URETERS: The kidneys are normal in size, shape, and attenuation. Exophytic calcified lesion at the lower pole of the right kidney measuring up to 1.5 cm in greatest dimension. No additional renal parenchymal lesion. Moderate to severe bilateral hydroureteronephrosis. No renal or ureteral stone. BLADDER: Nondistended with a Tovar catheter in place. Diffuse circumferential wall thickening with mild adjacent inflammatory change. GASTROINTESTINAL TRACT: No small or large bowel obstruction. Sigmoid diverticulosis without evidence of acute diverticulitis. No bowel wall thickening or inflammatory change. Unremarkable appendix. PERITONEAL CAVITY: No intra-abdominal free air or free fluid. ABDOMINAL WALL: No significant hernia is appreciated. LYMPH NODES: No significant lymphadenopathy. VASCULAR: No abdominal aortic dilatation or dissection. Atherosclerotic calcifications. PELVIC VISCERA: Prominent prostatomegaly measuring up to 5.5 x 6.2 x 7.4 cm. OSSEOUS STRUCTURES: Unremarkable. CT/CT abdomen pelvis wo IV con IMPRESSION: 1. Moderate to severe bilateral hydroureteronephrosis. No renal or ureteral stone. 2. Nondistended urinary bladder with a Tovar catheter in place. Diffuse circumferential wall thickening with mild adjacent inflammatory change, which could indicate an infectious or inflammatory process. Prominent prostatomegaly. 3. Diverticulosis without evidence of acute diverticulitis. No small or large bowel obstruction. Unremarkable appendix. 4. No intra-abdominal mass, lymphadenopathy, or ascites. Fleischner guidelines were followed. Electronically signed by: Baldemar Spears MD 09/18/2024 10:02 PM [facility]
--- NOTE | ~2024-09-18 | US_ITS ---
EXAMINATION: ULTRASOUND RENAL WITH DOPPLER CLINICAL INFORMATION: Uncontrolled hypertension question renal artery stenosis COMPARISON: None. TECHNIQUE: Real-time grayscale, color Doppler, and duplex Doppler evaluation of the kidneys and renal vasculature was performed. FINDINGS: RENAL MEASUREMENTS: Right: 13.2 x 5.4 x 5.1 cm (Sag x AP x TV). Mild right-sided hydronephrosis with dilatation of the proximal ureter measuring 2.1 cm. Left: 12.2 x 6.3 x 4.0 cm (Sag x AP x TV). Mild left-sided hydronephrosis and dilatation of the left proximal ureter measuring 2.1 cm. Urinary bladder is decompressed with Tovar catheter balloon in situ. Prominent urinary bladder wall thickening measuring up to 3.2 cm. The renal parenchyma appears normal. No hydronephrosis or nephrolithiasis. DOPPLER INTERROGATION: Aorta: 139 cm/sec (of note velocity greater than 100 cm/s preclude calculation of the RAR) RIGHT: Main Renal Artery: Proximal: 197 cm/sec Mid: 69.4 cm/sec Distal: 52.8 cm/sec Resistive Index: Upper Pole Segmental: 0.76 Inter Polar Segmental: 0.74 Lower Pole Segmental: 0.71 Right renal vein is patent. LEFT: Main Renal Artery: Proximal: 146 cm/sec Mid: 53.6 cm/sec Distal: 26.6 cm/sec Resistive Index: Upper Pole Segmental: 0.70 Inter Polar Segmental: 0.68 Lower Pole Segmental: 0.74 Left renal vein is patent. Renal-Aortic Ratio (RAR): Right: Not calculable secondary to mid aortic velocity greater than 100 cm/s Left: Not calculable secondary to mid aortic velocity greater than 100 cm/s US/US renal doppler IMPRESSION: 1. Mid aortic velocity greater than 100 cm/s precluding calculation of the RAR. 2. Elevated velocity of the right proximal renal artery suggesting renal artery stenosis. Delineation between greater than 60% or less than 60% stenosis not possible secondary to mid aortic velocity greater than 100 cm/s. 3. Bilateral mild hydronephrosis with dilatation of the bilateral proximal ureters. 4. Tovar catheter in situ with prominently thickened urinary bladder wall measuring up to 3.2 cm. Electronically signed by: Estuardo Onofre MD 09/19/2024 10:03 AM [facility]
[2024-09-18 16:32] VITALS: BP 223/89; PULSE 77; RESP 20; TEMP 36.1; O2SAT 99; BMI 27.5
--- NOTE | 2024-09-18 16:32 | ED_ITS ---
HPI - General Adult General Chief complaint: Urogenital-Male Stated complaint: Sent from ultrasound - abnormal results Time Seen by Provider: 09/18/24 16:59 Source: patient History of Present Illness HPI narrative: 64-year-old male presents from ultrasound ultrasound secondary to urinary retention. Patient was started on blood pressure medication approximately 1 week ago by his primary care provider. Patient states he had gone for lab work at that time. His renal functions have been noted and she will be elevated and was sent for an urgent visit with Nephrology. Patient had seen Dr. Tian and was sent for ultrasound. He was contacted due to the urinary retention. Patient states he does have discomfort in his lower abdomen. He is able to urinate does not necessarily feel as though he has complete emptying. He denies any fevers chills nausea or vomiting. No trauma. No history of similar. Denies any other medications. Related Data Home Medications ?Medication ?Instructions ?Recorded ?Confirmed amlodipine 5 mg tablet 5 mg PO DAILY 09/18/24 Previous Rx's ?Medication ?Instructions ?Recorded furosemide 40 mg tablet 40 mg PO DAILY #10 tabs 09/18/24 hydralazine 25 mg tablet 25 mg PO BID #60 tabs 09/18/24 labetalol 200 mg tablet 200 mg PO BID #60 tabs 09/18/24 Allergies Allergy/AdvReac Type Severity Reaction Status Date / Time No Known Allergies Allergy Verified 09/18/24 16:33 Review of Systems Constitutional: Constitutional: Denies chills and Denies fever(s) Cardiovascular: Cardiovascular: Denies chest pain, Denies palpitations, Denies dyspnea, Denies dyspnea on exertion and Denies orthopnea Respiratory: Respiratory: Denies cough, Denies dyspnea and Denies dyspnea on exertion Gastrointestinal: Gastrointestinal: Denies abdominal pain, Denies melena, Denies hematochezia, Denies diarrhea, Denies nausea and Denies vomiting Genitourinary: Genitourinary: Denies dysuria and Denies urinary urgency Musculoskeletal: Musculoskeletal: Denies back pain, Denies muscle weakness and Denies numbness Integumentary/Breasts: Skin/Breast: Denies rash Neurologic: Denies focal weakness and Denies numbness Psychiatric: Psychiatric: Denies depression Endocrine: Endocrine: Denies palpitations PMFSH Family History Family History Mother Diabetes type 2 Father Hypertension Social History Social History (Updated 09/18/24 @ 14:26 by Sima Roche MA) Alcohol intake: never Patient Tobacco Use Status: Never used Tobacco Advance Directives: No Advance Directives Information Provided: No Physical Exam ED Vital Signs: Vital Signs - 24 hr 09/18/24 16:32 09/18/24 18:00 09/18/24 20:00 Temperature 96.9 F 98.3 F 97.3 F Pulse Rate 77 69 67 Respiratory Rate 20 16 16 Blood Pressure 223/89 H 215/108 H 214/99 H Pulse Oximetry 99 100 100 Oxygen Delivery Method Room Air Room Air Room Air BMI result Body Mass Index 27.5 Const General: cooperative and alert Resp Auscultation: clear to auscultation bilaterally Cardio Rate: regular rate Rhythm: regular rhythm GI Other: abdomen is soft with distention to the lower abdomen. No peritoneal signs Course Course Course Narrative: This is a rapid medical exam performed by Diego Agustin NP: Additional HPI, ROS, PE not included below will be deferred to primary provider. Patient is a 64- year old male presenting from Dr. Tian's office reporting that he needs a urinary catheter placed. States he was told he is retaining a large amount of urine. Reports suprapubic pressure but denies pain. BP 223/89 in triage. Patient with NATHANIEL per note from Dr. Tian. Had labs drawn at 15:30. BUN/creatinine 38/3.38 Plan: UA Reevaluation(s) Reevaluation #1: 8:10 p[address] patient returned from CT scan. He is now having some blood within his Tovar. No obvious clots noted. It continues to drain. At this time approximally 1600 mL has been drained. Discussed with Dr. Orta for transfer of care. Medications Administered Discontinued Medications Generic Name Dose Route Start Last Admin Trade Name Freq PRN Reason Stop Dose Admin Lidocaine HCl 10 ml 09/18/24 18:32 09/18/24 18:48 Lidocaine Hcl 2 % Urojet 10 Ml Jel.Pf.Ivan TOPICAL 09/18/24 18:33 10 ml ONCE ONE Administration Medical Decision Making Medical Decision Making MDM Narrative: 64-year-old male who has a history of hypertension, new onset of urinary retention, presents from ultrasound that demonstrated over [address] Tian spoke with me and that it department, noted to have increased renal function, BUN of 38 and a creatinine of 3.38. This is new for the patient. He has not had any nephrotoxic medications. Differential Diagnosis Differential Diagnoses: The differential diagnosis associated with the pres entation includes NATHANIEL Urinary retention Metabolic abnormality Malignancy Admission/Observation Consideration of admission/observation: Escalation of care including admission/observation considered Lab Data Labs: Lab Results 09/18/24 Range/Units 18:58 Urine Color Yellow Urine Appearance Clear Urine pH 5.5 (5.0-9.0) Ur Specific [place] 1.010 (1.005-1.025) Urine Protein Negative (Neg-Trace) mg/dL Urine Glucose (UA) Negative (Negative) mg/dL Urine Ketones Negative (Negative) mg/dL Urine Blood Trace H (Negative) Urine Nitrite Negative (Negative) Ur Leukocyte Esterase Negative (Negative) Urine RBC 3-5 H (0-2) /HPF Urine WBC 0-5 (0-5) /HPF Ur Squamous Epith Cells 0-2 (0-2) /HPF Urine Bacteria None Seen (None Seen) Hyaline Casts 0-2 (0-2) /LPF Discharge Plan Discharge Clinical Impression: NATHANIEL (acute kidney injury), Acute retention of urine Patient Disposition: Admitted As Inpatient Print Language: [place]
--- OUTSIDE RECORDS SUMMARY | 2024-09-18 17:53 | XMS_ITS ---
Author Organization [facility] Address [address] [place] [address] Care Team Providers Care Guillotine Trimmer Name Role Phone LUIS ALBERTO ESPANA Primary Care Provider [phone] REASON FOR VISIT referral Encounters Encounter Location Date Provider Diagnosis [facility] [address] [place] [address] 09/17/2024 LUIS ALBERTO ESPANA Plan Of Treatment Next Appt Details Provider Name:LUIS ALBERTO ESPANA , 09/28/2024 08:00:00 AM, [address] [place] [address], [place], [address], Provider Name:LUIS ALBERTO ESPANA , 12/15/2024 08:15:00 AM, [address] [place] [address], [place], [address], Progress Notes * Yefri BYERSDOB:1959 (64 yo M)Acc No.[id number]:09/17/2024 Patient:?Yefri BYERS :1960???Age:64 Y???Sex:Male Address:[place] [address] * true * Date:? Generated for Printi haile/Timbo/eTransmitting on:?09/18/2024 05:53 PM EST
[2024-09-18 18:00] VITALS: BP 215/108; PULSE 69; RESP 16; TEMP 36.8; O2SAT 100
--- NOTE | 2024-09-18 18:42 | PC.NURSE ---
Indwelling 16F Tovar inserted per protocol.
[2024-09-18] MEDS: Lidocaine HCl 2 % Urojet 10 ML JEL.PF.APP TOPICAL (18:48)
[2024-09-18 19:08] LABS: Appearance Urine Clear; Color Urine Yellow; Glucose Urine UA Negative (Negative); Leukocyte Esterase Urine Negative (Negative); Nitrite Urine Negative (Negative); PH 5.5 (5.0-9.0); UMIC TRIGGER UACC YES; Urine Blood Trace (Negative); Urine Ketones Negative (Negative); Urine Protein Negative (Neg-Trace)
[2024-09-18 19:16] LABS: Bacteria Urine None Seen (None Seen); Hyaline Casts Urine 0-2 /LPF (0-2); Squamous Epithelial Cell Urine 0-2 /HPF (0-2); WBC Urine 0-5 /HPF (0-5)
[2024-09-18 20:00] VITALS: BP 214/99; PULSE 67; RESP 16; TEMP 36.3; O2SAT 100
--- NOTE | 2024-09-18 21:05 | PHA.MEDREC ---
Pharmacy Consult ? Medication Reconciliation Pharmacy has completed the medication reconciliation. Spoke with patient and he confirmed he just started Amlodipine 5 mg tabs on Saturday 09/[address] told him today to stop that and start Labetolol 200mg tabs and Hydralazine 25mg for HBP and Furosemise 40mg for swelling that he is having. He states he took a tablet of the Amlodipine 5mg tab this morning and confirmed he got the other medications at home but never got to start them yet.
--- NOTE | 2024-09-18 21:05 | PM.IMHP ---
History of Present Illness Date of Service: 09/18/24 <JANAE Reece - Last Filed: 09/18/24 22:46> Attending physician on admission: Britt Orta <JANAE Reece - Last Filed: 09/18/24 22:46> Chief Complaint: Urinary retention <JANAE Reece - Last Filed: 09/18/24 22:46> Pt is a 64-year-old male with a PMH significant for?HTN who presents to the ED from Nephrology office for ultrasound finding of urinary retention. Patient was recently diagnosed with hypertension approximately 1 week ago by his PCP and started on amlodipine 5 mg daily. Patient follows regularly with PCP and has never had a reported problem with blood pressure before. Labs were also ordered at that time and showed elevated creatinine that prompted an urgent visit with Nephrology. Patient was seen by Dr. Tian who sent patient for a renal ultrasound that incidentally found significant urinary retention up to 2L. Patient's BP was also elevated at 170/100. Given significant HTN, urinary retention, and worsening kidney function, patient was sent to the ED for further evaluation. Patient himself has no acute medical complaints. Denies headache. No changes to bowel or bladder habits. Denies dysuria, dribbling, or feeling of incomplete bladder emptying. Does state has perhaps been urinating more often than normal, but has been trying to drink a lot of water recently. Denies abdominal or pubic pain. No chest pain/pressure, palpitations. Denies shortness or breath or difficulty breathing. No fever, chills, nausea, vomiting, diarrhea. Of note, Dr. Tian started patient on 3 antihypertensives at today's visit: Labetalol 200 mg b.i.d., hydralazine 25 mg b.i.d., and furosemide 40 mg daily, which patient has yet to start. ? In the ED pt was hypertensive up to 223/89, vitals otherwise stable and WNL. Labs were significant for BUN 38 and creatinine 3.38. No leukocytosis. Stable H&H. No significant electrolyte abnormalities. UA negative for UTI. Renal U/S found moderate to severe bilateral hydronephrosis and distended urinary bladder with volume of 1.4-6.5 mL, and partially visualized prostatomegaly. CT of abdomen and pelvis found moderate to severe bilateral hydroureteronephrosis without renal or ureteral stone, nondistended urinary bladder, and prominent prostatomegaly.. In the ED pt had Tovar placed, where gross hematuria without clots noted, likely secondary to traumatic insertion. Pt will be admitted to the hospital for treatment and further evaluation of hypertensive urgency, NATHANIEL, and acute urinary retention likely secondary to prostatomegaly. <JANAE Reece - Last Filed: 09/18/24 22:46> Review of Systems Review of Systems: Negative except for that which is stated in the HPI <JANAE Reece - Last Filed: 09/18/24 22:46> [facility] Medical History: Medical History (Updated 09/18/24 @ 21:44 by JANAE Reece) Hypertension <JANAE Reece - Last Filed: 09/18/24 22:46> Family History: Family History Mother Diabetes type 2 Father Hypertension <JANAE Reece - Last Filed: 09/18/24 22:46> Social History: Social History Alcohol intake: never Patient Tobacco Use Status: Never used Tobacco Advance Directives: No Advance Directives Information Provided: No <JANAE Reece - Last Filed: 09/18/24 22:46> Meds Allergies/Adverse reactions: Allergies Allergy/AdvReac Type Severity Reaction Status Date / Time No Known Allergies Allergy Verified 09/18/24 16:33 <JANAE Reece - Last Filed: 09/18/24 22:46> Physical Exam Vital Signs and Narrative: Vital Signs: Last Vital Signs Temp 97.3 F 09/18/24 20:00 Pulse 67 09/18/24 20:00 Resp 16 09/18/24 20:00 BP 214/99 H 09/18/24 20:00 Pulse Ox 100 09/18/24 20:00 O2 Del Method Room Air 09/18/24 20:00 BMI result Body Mass Index 27.5 <JANAE Reece - Last Filed: 09/18/24 22:46> Results Labs Labs: Laboratory Results - last 24 hr 09/18/24 18:58 Urine Color Yellow Urine Appearance Clear Urine pH 5.5 Ur Specific [place] 1.010 Urine Protein Negative Urine Glucose (UA) Negative Urine Ketones Negative Urine Blood Trace H Urine Nitrite Negative Ur Leukocyte Esterase Negative Urine RBC 3-5 H Urine WBC 0-5 Ur Squamous Epith Cells 0-2 Urine Bacteria None Seen Hyaline Casts 0-2 <JANAE Reece - Last Filed: 09/18/24 22:46> Assessment and Plan (1) Acute retention of urine: Status: Acute <JANAE Reece - Last Filed: 09/18/24 22:46> (2) NATHANIEL (acute kidney injury): Status: Acute <JANAE Reece - Last Filed: 09/18/24 22:46> Pt is a 64-year-old male with a PMH significant for?HTN who presents to the ED from Nephrology office for ultrasound finding of urinary retention. Pt will be admitted to the hospital for treatment and further evaluation of hypertensive urgency, NATHANIEL, and acute urinary retention likely secondary to prostatomegaly. Acute urinary retention Incidental finding on renal US showed 1.4L urine in distended bladder and prominent prostatomegaly Pt asymptomatic Tovar placed in the ED, 1.6L drained Urology consult NATHANIEL Pt's creatinine 3.38 at time of presentation Likely secondary to urinary retention Renal ultrasound showed moderate to severe bilateral hydronephrosis CT of abdomen/pelvis found moderate to severe bilateral hydroureteronephrosis without renal or ureteral stone and prominent prostatomegaly Treat as above with Tovar catheter Nephrology consult Follow renal function Hypertensive urgency Patient's BP as high as 223/89 in the ED Seemingly sudden-onset -- diagnosed one week ago and started on amlodipine 5 mg daily BP meds changed by Nephrology today to Lasix 40 mg daily, hydralazine 25 mg b.i.d., and labetalol 200 mg b.i.d. Concerning for secondary hypertension in the setting of urinary retention Will give hydralazine 10 mg IV Continue labetalol, hydralazine p.o. for now Hold furosemide due to NATHANIEL Monitor BP closely Hematuria Patient with hematuria after Tovar placed Likely secondary to traumatic insertion Monitor for clots, CBI if any noted Full Code Attending:?Dr. Orta DVT Prophylaxis: Pt ambulatory, hold on anticoagulants due to hematuria Pt will require a hospitalization of at least two nights for treatment of?NATHANIEL, hypertensive urgency, and acute urinary retention likely secondary to prostatomegaly. Patient will require close monitoring of kidney function, blood pressure, and specialist consultation with Nephrology and Urology. <JANAE Reece - Last Filed: 09/18/24 22:46> Pt is a 64-year-old male with a PMH significant for?HTN who presents to the ED from Nephrology office for ultrasound finding of urinary retention. Pt will be admitted to the hospital for treatment and further evaluation of hypertensive urgency, NATHANIEL, and acute urinary retention likely secondary to prostatomegaly. Acute urinary retention Incidental finding on renal US showed 1.4L urine in distended bladder and prominent prostatomegaly Pt asymptomatic Tovar placed in the ED, 1.6L drained Urology consult NATHANIEL Pt's creatinine 3.38 at time of presentation Likely secondary to urinary retention Renal ultrasound showed moderate to severe bilateral hydronephrosis CT of abdomen/pelvis found moderate to severe bilateral hydroureteronephrosis without renal or ureteral stone and prominent prostatomegaly Treat as above with Tvoar catheter Nephrology consult Follow renal function Hypertensive urgency Patient's BP as high as 223/89 in the ED Seemingly sudden-onset -- diagnosed one week ago and started on amlodipine 5 mg daily BP meds changed by Nephrology today to Lasix 40 mg daily, hydralazine 25 mg b.i.d., and labetalol 200 mg b.i.d. Concerning for secondary hypertension Will give hydralazine 10 mg IV Continue labetalol, hydralazine p.o. for now Hold furosemide due to NATHANIEL Monitor BP closely Hematuria Patient with hematuria after Tovar placed Likely secondary to traumatic insertion Monitor for clots, CBI if any noted Full Code Attending:?Dr. Orta DVT Prophylaxis: Pt ambulatory, hold on anticoagulants due to hematuria Pt will require a hospitalization of at least two nights for treatment of?NATHANIEL, hypertensive urgency, and acute urinary retention likely secondary to prostatomegaly. Patient will require close monitoring of kidney function, blood pressure, and specialist consultation with Nephrology and Urology. <Britt Orta MD - Last Filed: 09/18/24 22:52> Quality Stroke Does the patient have a stroke diagnosis?: No <JANAE Reece - Last Filed: 12/20/24 22:46> VTE Prior VTE?: No <JANAE Reece - Last Filed: 09/18/24 22:46> VTE Risk Level:: Medical - moderate - high <JANAE Reece - Last Filed: 09/18/24 22:46> VTE Device Contraindication: N/A - Device Ordered <JANAE Reece - Last Filed: 09/18/24 22:46> VTE Drug Contraindication: Treatment Not Indicated <JANAE Reece - Last Filed: 09/18/24 22:46>
[2024-09-18 22:14] VITALS: BP 203/94; PULSE 73
[2024-09-18] MEDS: Labetalol HCL 200 MG TABLET PO (22:14)
[2024-09-18 22:18] VITALS: BP 203/94
[2024-09-18] MEDS: hydrALAZINE HCl 20 MG/ML VIAL 10 MG IVPUSH (22:18)
[2024-09-18 22:20] VITALS: BP 203/94; PULSE 73; RESP 16; TEMP 36.8; O2SAT 100
[2024-09-18] MEDS: Tamsulosin HCL 0.4 MG CAPSULE PO (23:19)
[2024-09-19] VITALS (8 sets, daily range): BP systolic 114–177; BP diastolic 57–86; PULSE 54–76; RESP 16–20; TEMP 36.4–37.4; O2SAT 95–100; BMI 26.8
[2024-09-19] MEDS: Acetaminophen 325 MG TABLET 650 MG PO (00:37)
[2024-09-19] MEDS: Melatonin 3 MG TABLET 6 MG PO (00:38)
[2024-09-19] MEDS: 0.9 % Sodium Chloride Flush 3 ML SYRINGE IVFLUSH ×4 (00:39→20:49)
[2024-09-19] MEDS: TiZANidine HCL 4 MG TABLET PO (01:54)
[2024-09-19 07:08] LABS: MANUAL DIFF FLAG NO
[2024-09-19 07:12] LABS: Basophils Percent Auto 0.4 % (0-2); Eosinophils Absolute Auto 0.1 X10*3/uL (0.0-0.4); Eosinophils Percent Auto 0.6 % (0-4); Hematocrit 36.1 % (42.0-52.0); Hemoglobin 12.7 g/dl (14.0-18.0); Imm Gran Abs Auto 0.03 X10*3/uL (0.00-0.03); Imm Gran Pct Auto 0.4 % (0.0-0.4); Lymphocytes Absolute Auto 1.5 X10*3/uL (1.2-4.9); Mean Corpuscular HGB Conc 35.2 g/dl (31.0-36.0); Mean Corpuscular Hemoglobin 30.8 pg (27.0-33.0); Mean Corpuscular Volume 87.6 fL (80.0-98.0); Monocytes Absolute Auto 0.6 X10*3/uL (0.1-1.2); Monocytes Percent Auto 7.6 % (2-11); Neutrophils Absolute Auto 5.9 x10*3/uL (2.0-8.3); Platelet Count 186 X10*3/uL (160-400); Red Blood Count 4.12 X10*6/uL (4.60-5.80); Red Cell Distribution Width 12.2 % (11.0-16.0); White Blood Count 8.1 X10*3/uL (4.8-10.8)
[2024-09-19 07:25] LABS: Alanine Aminotransferase 14 U/L (0-40); Albumin Level 4.1 g/dL (3.5-5.0); Alkaline Phosphatase 45 U/L (39-117); Anion Gap 12 (12-20); Aspartate Amino Transferase 23 U/L (5-37); Bilirubin Total 0.8 mg/dL (0.0-1.0); Blood Urea Nitrogen 31 mg/dL (9-16); Calcium 9.2 mg/dL (8.4-10.2); Carbon Dioxide 26 mmol/L (22-29); Chloride 107 mmol/L (96-108); Creatinine Clr Calc Pharmacy 33.2; Estimated Glomerular Filt Rate 24; Glucose Random 130 mg/dL (60-115); Magnesium 1.9 mg/dL (1.6-2.6); Potassium 3.9 mmol/L (3.3-5.1); Sodium 141 mmol/L (135-145); Total Protein 6.5 g/dL (6.5-8.0)
--- NOTE | 2024-09-19 08:00 | P.PNIM_ITS ---
Subjective Subjective Date of Service: 09/19/24 Review of Systems Follow up urinary retention no abd pain Physical Exam 2 Vital Signs: Vital Signs: Last Vital Signs Temp 99.0 F 09/19/24 07:12 Pulse 69 09/19/24 07:12 Resp 20 09/19/24 07:12 BP 151/71 H 09/19/24 07:12 Pulse Ox 100 09/19/24 07:12 O2 Del Method Room Air 09/19/24 07:12 BMI result Body Mass Index 26.8 Appearing in no acute distress lung sounds are clear to auscultation heart regular rate rhythm, clear S1, S2 positive bowel sounds, abdomen is soft, nontender neuro patient is alert x3, no focal deficits Objective Data Active Medications Acetaminophen (Acetaminophen 325 Mg Tablet) 650 mg PO Q6H PRN PRN Reason: Pain, Mild (Pain Scale 1-3), fever or headache Last Admin: 09/19/24 00:37 Dose: 650 mg Documented By: YOGESH Calcium Carbonate (Calcium Carbonate 750 Mg Tab.Chew) 750 mg PO Q4H PRN PRN Reason: Heartburn Hydralazine HCl (Hydralazine Hcl 25 Mg Tablet) 25 mg PO BID [facility]; Protocol Labetalol HCl (Labetalol Hcl 200 Mg Tablet) 200 mg PO BID [facility]; Protocol Last Admin: 09/18/24 22:14 Dose: 200 mg Documented By: YOLANDA Magnesium Hydroxide (Milk Of Magnesia 30 Ml Oral.Susp) 30 ml PO DAILY PRN PRN Reason: Constipation Melatonin (Melatonin 3 Mg Tablet) 6 mg PO BEDTIME PRN PRN Reason: Insomnia Last Admin: 09/19/24 00:38 Dose: 6 mg Documented By: YOGESH Ondansetron HCl (Ondansetron Hcl 4 Mg/2 Ml Vial) 4 mg IVPUSH Q8H PRN PRN Reason: Nausea and Vomiting Sodium Chloride (0.9 % Sodium Chloride Flush 3 Ml Syringe) 3 ml IVFLUSH QSHIFT [facility] Last Admin: 09/19/24 00:39 Dose: 3 ml Documented By: YOGESH Tamsulosin HCl (Tamsulosin Hcl 0.4 Mg Capsule) 0.4 mg PO BEDTIME [facility] Last Admin: 09/18/24 23:19 Dose: 0.4 mg Documented By: YOLANDA Labs 09/19/24 06:52 12/21/24 06:52 Labs: Laboratory Results - last 24 hr 09/18/24 09/19/24 18:58 06:52 MCV 87.6 MCH 30.8 MCHC 35.2 RDW 12.2 Plt Count 186 MPV 10.0 Immature Gran % (Auto) 0.4 Neut % (Auto) 73.0 Lymph % (Auto) 18.0 L [place] % (Auto) 7.6 Eos % (Auto) 0.6 Baso % (Auto) 0.4 Lymph # (Auto) 1.5 [place] # (Auto) 0.6 Eos # (Auto) 0.1 Baso # (Auto) 0.0 Abs Immat Gran (auto) 0.03 Absolute Neuts (auto) 5.9 Absolute Nucleated RBC 0.000 Nucleated RBC % (auto) 0.0 Anion Gap 12 Estim Creat Clear Calc 33.2 Estimated GFR 24 Random Glucose 130 H Calcium 9.2 Magnesium 1.9 Total Bilirubin 0.8 AST 23 ALT 14 Alkaline Phosphatase 45 Total Protein 6.5 Albumin 4.1 Urine Color Yellow Urine Appearance Clear Urine pH 5.5 Ur Specific [place] 1.010 Urine Protein Negative Urine Glucose (UA) Negative Urine Ketones Negative Urine Blood Trace H Urine Nitrite Negative Ur Leukocyte Esterase Negative Urine RBC 3-5 H Urine WBC 0-5 Ur Squamous Epith Cells 0-2 Urine Bacteria None Seen Hyaline Casts 0-2 Assessment and Plan (1) NATHANIEL (acute kidney injury): Status: Acute Plan Pt is a 64-year-old male with a PMH significant for?HTN who presents to the ED from Nephrology office for ultrasound finding of urinary retention. Pt will be admitted to the hospital for treatment and further evaluation of hypertensive urgency, NATHANIEL, and acute urinary retention likely secondary to prostatomegaly. Acute urinary retention Incidental finding on renal US showed 1.4L urine in distended bladder and prominent prostatomegaly Pt asymptomatic Tovar placed in the ED, 1.6L drained Urology consult pending NATHANIEL Pt's creatinine 3.38 at time of presentation Likely secondary to urinary retention Renal ultrasound showed moderate to severe bilateral hydronephrosis CT of abdomen/pelvis found moderate to severe bilateral hydroureteronephrosis without renal or ureteral stone and prominent prostatomegaly Treat as above with Tovar catheter Nephrology consult Follow renal function Hypertensive urgency Patient's BP as high as 223/89 in the ED Seemingly sudden-onset -- diagnosed one week ago and started on amlodipine 5 mg daily BP meds changed by Nephrology today to Lasix 40 mg daily, hydralazine 25 mg b.i.d., and labetalol 200 mg b.i.d. Concerning for secondary hypertension in the setting of urinary retention Continue labetalol, hydralazine p.o. for now Hold furosemide due to NATHANIEL Monitor BP closely Hematuria Patient with hematuria after Tovar placed Likely secondary to traumatic insertion Monitor for clots, CBI if any noted Full Code Attending:?Dr. Edwards DVT Prophylaxis: Pt ambulatory, hold on anticoagulants due to hematuria Quality Stroke Does the patient have a stroke diagnosis?: No VTE Prior VTE?: No VTE Risk Level:: Medical - moderate - high VTE Device Contraindication: N/A - Device Ordered VTE Drug Contraindication: Treatment Not Indicated
[2024-09-19] MEDS: hydrALAZINE HCl 25 MG TABLET PO (09:14)
[2024-09-19] MEDS: Labetalol HCL 200 MG TABLET PO (09:14)
--- NOTE | 2024-09-19 09:18 | MHC.CM.PN ---
CM met with Patient at bedside. Patient lives in a house with his /HCP/Tory and he required no services nor DME [employer]. Home/self care is the goal and CM has initiated and will follow for dc planning. PCP is Dr. Ethel Salmeron and will transport to home.
--- NOTE | 2024-09-19 10:39 | PM.UROCN ---
History of Present Illness Consult details Consult date: 09/19/24 Narrative: CC: Urinary retention with NATHANIEL 64-year-old male Sent by Nephrology to emergency room for elevated creatinine and difficult to control blood pressure Renal ultrasound by Nephrology with bilateral hydro uretero nephrosis, 1400 cc within bladder and 50 cc prostate Tovar catheter placed in emergency room. 1600 cc output Initial creatinine 3.4, has fallen to 2.[address] scan - prominently thickened bladder wall up to 3 cm - mild right renal artery stenosis Initiate prostate medications Switch from drainage bag to catheter valve Blood pressure highly likely to resolve as fluid status normalizes 4 week follow-up outpatient voiding trial Review of Systems Constitutional: Constitutional: Reports as per HPI and Reports no additional constitutional complaints Cardiovascular: Cardiovascular: Reports as per HPI and Reports no additional cardiovascular complaints Respiratory: Respiratory: Reports as per HPI and Reports no additional respiratory complaints Gastrointestinal: Gastrointestinal: Reports as per HPI and Reports no additional gastrointestinal complaints Genitourinary: Genitourinary: Reports as per HPI Musculoskeletal: Musculoskeletal: Reports no additional musculoskeletal complaints and Reports as per HPI Neurologic: Reports system reviewed and no additional complaints, except as documented and Reports as per HPI [facility] Past Medical History Medical History (Updated 09/18/24 @ 21:44 by JANEA Reece) Hypertension Family History Family History Mother Diabetes type 2 Father Hypertension Social History Social History Household Members: Family Housing: House Do you presently have visiting nurse or other home services: No Alcohol intake: never Patient Tobacco Use Status: Never used Tobacco service: Yes Meds Allergies Allergy/AdvReac Type Severity Reaction Status Date / Time No Known Allergies Allergy Verified 09/18/24 16:33 Active Medications: Current Medications Acetaminophen (Acetaminophen 325 Mg Tablet) 650 mg PO Q6H PRN PRN Reason: Pain, Mild (Pain Scale 1-3), fever or headache Last Admin: 09/19/24 00:37 Dose: 650 mg Calcium Carbonate (Calcium Carbonate 750 Mg Tab.Chew) 750 mg PO Q4H PRN PRN Reason: Heartburn Hydralazine HCl (Hydralazine Hcl 25 Mg Tablet) 25 mg PO BID [facility]; Protocol Last Admin: 09/19/24 09:14 Dose: 25 mg Labetalol HCl (Labetalol Hcl 200 Mg Tablet) 200 mg PO BID [facility]; Protocol Last Admin: 09/19/24 09:14 Dose: 200 mg Magnesium Hydroxide (Milk Of Magnesia 30 Ml Oral.Susp) 30 ml PO DAILY PRN PRN Reason: Constipation Melatonin (Melatonin 3 Mg Tablet) 6 mg PO BEDTIME PRN PRN Reason: Insomnia Last Admin: 09/19/24 00:38 Dose: 6 mg Ondansetron HCl (Ondansetron Hcl 4 Mg/2 Ml Vial) 4 mg IVPUSH Q8H PRN PRN Reason: Nausea and Vomiting Sodium Chloride (0.9 % Sodium Chloride Flush 3 Ml Syringe) 3 ml IVFLUSH QSHIFT [facility] Last Admin: 09/19/24 09:15 Dose: 3 ml Tamsulosin HCl (Tamsulosin Hcl 0.4 Mg Capsule) 0.4 mg PO BEDTIME [facility] Last Admin: 09/18/24 23:19 Dose: 0.4 mg Physical Exam Vital Signs: Vital Signs: Last Vital Signs Temp 99.0 F 09/19/24 07:12 Pulse 69 09/19/24 07:12 Resp 20 09/19/24 07:12 BP 151/71 H 09/19/24 07:12 Pulse Ox 100 09/19/24 07:12 O2 Del Method Room Air 09/19/24 07:12 BMI result Body Mass Index 26.8 Const: General: cooperative, healthy appearing, comfortable and no acute distress Orientation/consciousness: patient oriented x3 HEENT: Face and sinus: Yes normal facial exam Mouth: moist mucous membranes Neck: Neck: Yes normal visual inspection, Yes full ROM and Yes trachea midline Chest: Chest palpation & inspection: normal inspection of the chest Resp: Effort & Inspection: normal respiratory effort, able to speak in complete sentences and no respiratory distress GI: Inspection: Yes normal to inspection Back/Spine/Pelvis: Cervical Spine: normal cervical lordosis Thoracic/Lumbar Spine: thoracic and lumbar spine normal to inspection Skin: General skin exam: no rashes or lesions noted Neuro: General: patient oriented x3, tone normal and moves all extremities Extrem: General: Yes normal to inspection and Yes capillary refill normal Results Labs 09/19/24 06:52 09/19/24 06:52 Labs: Abnormal lab results 09/18/24 09/19/24 Range/Units 18:58 06:52 RBC 4.12 L (4.60-5.80) X10*6/uL Hgb 12.7 L (14.0-18.0) g/dl Hct 36.1 L (42.0-52.0) % Lymph % (Auto) 18.0 L (20-40) % BUN 31 H (9-16) mg/dL Creatinine 2.72 H (0.5-1.4) mg/dL Random Glucose 130 H (60-115) mg/dL Urine Blood Trace H (Negative) Urine RBC 3-5 H (0-2) /HPF Short CBC 09/19/24 Range/Units 06:52 WBC 8.1 (4.8-10.8) X10*3/uL Hgb 12.7 L (14.0-18.0) g/dl Hct 36.1 L (42.0-52.0) % Plt Count 186 (160-400) X10*3/uL BMP 09/19/24 06:52 Sodium 141 Potassium 3.9 Chloride 107 Carbon Dioxide 26 BUN 31 H Creatinine 2.72 H Calcium 9.2 Liver Function 09/19/24 Range/Units 06:52 Total Bilirubin 0.8 (0.0-1.0) mg/dL AST 23 (5-37) U/L ALT 14 (0-40) U/L Alkaline Phosphatase 45 (39-117) U/L Albumin 4.1 (3.5-5.0) g/dL Urine 09/18/24 Range/Units 18:58 Urine Color Yellow Urine Appearance Clear Urine pH 5.5 (5.0-9.0) Ur Specific [place] 1.010 (1.005-1.025) Urine Protein Negative (Neg-Trace) mg/dL Urine Glucose (UA) Negative (Negative) mg/dL All other labs normal. Assessment and Plan (1) NATHANIEL (acute kidney injury): Status: Acute (2) Acute retention of urine: Status: Acute Plan Prostate medications Tovar catheter 4 weeks voiding trial - use Tovar catheter valve Watch creatinine Procedures Date of Service Date of Service: 09/19/24
[2024-09-19] MEDS: Finasteride 5 MG TABLET PO (11:14)
[2024-09-19] MEDS: Doxazosin Mesylate 2 MG TABLET 4 MG PO (20:49)
[2024-09-20 04:00] VITALS: BP 174/100; PULSE 97; RESP 18; TEMP 37.8; O2SAT 98
[2024-09-20 07:14] LABS: Anion Gap 13 (12-20); Blood Urea Nitrogen 28 mg/dL (9-16); Calcium 9.3 mg/dL (8.4-10.2); Carbon Dioxide 29 mmol/L (22-29); Chloride 103 mmol/L (96-108); Creatinine Clr Calc Pharmacy 38.7; Estimated Glomerular Filt Rate 28; Glucose Random 131 mg/dL (60-115); Potassium 3.9 mmol/L (3.3-5.1); Sodium 141 mmol/L (135-145)
[2024-09-20 07:20] VITALS: BP 170/88; PULSE 73; RESP 20; TEMP 37.3; O2SAT 97
[2024-09-20] MEDS: Labetalol HCL 200 MG TABLET PO ×2 (08:02→19:47)
[2024-09-20] MEDS: hydrALAZINE HCl 25 MG TABLET PO ×2 (08:02→19:47)
[2024-09-20] MEDS: 0.9 % Sodium Chloride Flush 3 ML SYRINGE IVFLUSH ×3 (08:02→19:49)
[2024-09-20] MEDS: Finasteride 5 MG TABLET PO (08:02)
--- NOTE | 2024-09-20 09:07 | P.PNIM_ITS ---
Subjective Subjective Date of Service: 09/20/24 Review of Systems Follow up urinary retention no abd pain good appetite ambulating in room Physical Exam 2 Vital Signs: Vital Signs: Last Vital Signs Temp 99.2 F 09/20/24 07:20 Pulse 73 09/20/24 07:20 Resp 20 09/20/24 07:20 BP 170/88 H 09/20/24 07:20 Pulse Ox 97 09/20/24 07:20 O2 Del Method Room Air 09/20/24 07:20 BMI result Body Mass Index 26.8 Appearing in no acute distress lung sounds are clear to auscultation heart regular rate rhythm, clear S1, S2 positive bowel sounds, abdomen is soft, nontender neuro patient is alert x3, no focal deficits Fc in place Objective Data Active Medications Acetaminophen (Acetaminophen 325 Mg Tablet) 650 mg PO Q6H PRN PRN Reason: Pain, Mild (Pain Scale 1-3), fever or headache Last Admin: 09/19/24 00:37 Dose: 650 mg Documented By: YOGESH Calcium Carbonate (Calcium Carbonate 750 Mg Tab.Chew) 750 mg PO Q4H PRN PRN Reason: Heartburn Doxazosin Mesylate (Doxazosin Mesylate 2 Mg Tablet) 4 mg PO BEDTIME [facility]; Protocol Last Admin: 09/19/24 20:49 Dose: 4 mg Documented By: ALEXANDER Finasteride (Finasteride 5 Mg Tablet) 5 mg PO DAILY [facility] Last Admin: 09/20/24 08:02 Dose: 5 mg Documented By: KODAK Hydralazine HCl (Hydralazine Hcl 25 Mg Tablet) 25 mg PO BID [facility]; Protocol Last Admin: 09/20/24 08:02 Dose: 25 mg Documented By: KODAK Labetalol HCl (Labetalol Hcl 200 Mg Tablet) 200 mg PO BID [facility]; Protocol Last Admin: 09/20/24 08:02 Dose: 200 mg Documented By: KODAK Magnesium Hydroxide (Milk Of Magnesia 30 Ml Oral.Susp) 30 ml PO DAILY PRN PRN Reason: Constipation Melatonin (Melatonin 3 Mg Tablet) 6 mg PO BEDTIME PRN PRN Reason: Insomnia Last Admin: 09/19/24 00:38 Dose: 6 mg Documented By: YOGESH Ondansetron HCl (Ondansetron Hcl 4 Mg/2 Ml Vial) 4 mg IVPUSH Q8H PRN PRN Reason: Nausea and Vomiting Sodium Chloride (0.9 % Sodium Chloride Flush 3 Ml Syringe) 3 ml IVFLUSH QSHIFT [facility] Last Admin: 09/20/24 08:02 Dose: 3 ml Documented By: KODAK Labs 09/19/24 06:52 09/20/24 06:41 Labs: Laboratory Results - last 24 hr 09/20/24 06:41 Anion Gap 13 Estim Creat Clear Calc 38.7 Estimated GFR 28 Random Glucose 131 H Calcium 9.3 Assessment and Plan (1) NATHANIEL (acute kidney injury): Status: Acute Plan 64-year-old male with a PMH significant for?HTN who presented to the ED from Nephrology office for ultrasound finding of urinary retention. Pt admitted to the hospital for treatment and further evaluation of hypertensive urgency, NATHANIEL, and acute urinary retention likely secondary to prostatomegaly. Acute urinary retention. Resolved Incidental finding on renal US showed 1.4L urine in distended bladder and prominent prostatomegaly PT asymptomatic Tovar placed in the ED, 1.6L drained Urology consult>started on proscar and cardura, voiding trial in 4 weeks (has f/c valve), BP likely to resolve as fluid status normalizes NATHANIEL. Trending down Pt's creatinine 3.38 at time of presentation secondary to urinary retention Renal ultrasound showed moderate to severe bilateral hydronephrosis CT of abdomen/pelvis found moderate to severe bilateral hydroureteronephrosis without renal or ureteral stone and prominent prostatomegaly Treat as above with Tovar catheter Nephrology consult>mild AMARIS, continue labetolol and hydralazine for now Hypertensive urgency Patient's BP as high as 223/89 in the ED Seemingly sudden-onset, diagnosed one week ago and started on amlodipine 5 mg daily BP meds changed to hydralazine and labetalol, BP still elevated Concerning for secondary hypertension in the setting of urinary retention Monitor BP closely Hematuria Patient with hematuria after Tovar placed Likely secondary to traumatic insertion Monitor for clots, CBI if any noted Full Code Attending:?Dr. Edwards DVT Prophylaxis: Pt ambulatory, hold on anticoagulants due to hematuria Quality Stroke Does the patient have a stroke diagnosis?: No VTE Prior VTE?: No VTE Risk Level:: Medical - moderate - high VTE Device Contraindication: N/A - Device Ordered VTE Drug Contraindication: Treatment Not Indicated
[2024-09-20 11:34] VITALS: BP 153/75; PULSE 64; RESP 20; TEMP 36.4; O2SAT 97
[2024-09-20 15:45] VITALS: BP 163/77; PULSE 71; RESP 20; TEMP 37.3; O2SAT 95
[2024-09-20 19:01] VITALS: BP 198/94; PULSE 71; RESP 16; TEMP 37.1; O2SAT 98
[2024-09-20] MEDS: Doxazosin Mesylate 2 MG TABLET 4 MG PO (19:47)
[2024-09-20 23:18] VITALS: BP 156/83; PULSE 61; RESP 17; TEMP 36.6; O2SAT 98
[2024-09-21 03:14] VITALS: BP 157/84; PULSE 78; RESP 18; TEMP 36.4; O2SAT 97
[2024-09-21 06:37] LABS: Anion Gap 14 (12-20); Blood Urea Nitrogen 28 mg/dL (9-16); Calcium 8.9 mg/dL (8.4-10.2); Carbon Dioxide 27 mmol/L (22-29); Chloride 101 mmol/L (96-108); Creatinine Clr Calc Pharmacy 45.6; Estimated Glomerular Filt Rate 34; Glucose Random 133 mg/dL (60-115); Potassium 3.7 mmol/L (3.3-5.1); Sodium 138 mmol/L (135-145)
[2024-09-21 07:01] VITALS: BP 155/78; PULSE 57; RESP 16; TEMP 36.8; O2SAT 98
[2024-09-21] MEDS: Labetalol HCL 200 MG TABLET PO (08:13)
[2024-09-21] MEDS: Finasteride 5 MG TABLET PO (08:13)
[2024-09-21] MEDS: hydrALAZINE HCl 25 MG TABLET PO (08:13)
[2024-09-21] MEDS: 0.9 % Sodium Chloride Flush 3 ML SYRINGE IVFLUSH (08:14)
[2024-09-21 10:46] VITALS: BP 132/70; PULSE 63; RESP 16; TEMP 37.1; O2SAT 97
--- NOTE | 2024-09-21 10:51 | MHC.CM.PN ---
ANTIC PT WILL BE MEDICALLY CLEARED FOR DC PENDING NEPHRO, PT WILL CONTACT FOR TRANSPORT.
--- NOTE | 2024-09-21 12:51 | PM.CNNEP ---
History of Present Illness Reason for Consult Consult date: 09/21/24 Reason for consult: NATHANIEL Chief Complaint Chief complaint: Urinary retention History of Present Illness Narrative: 64-year-old male with a PMH significant for?HTN who presents to the ED from Nephrology office for ultrasound finding of urinary retention. Patient was recently diagnosed with hypertension approximately 1 week ago by his PCP and started on amlodipine 5 mg daily. Patient follows regularly with PCP and has never had a reported problem with blood pressure before. CT showed bilateral hydronephrosis Tovar has been inserted Renal function is improving [facility] Past Medical History Medical History (Updated 09/18/24 @ 21:44 by JANAE Reece) Hypertension Family History Family History Mother Diabetes type 2 Father Hypertension Social History Social History Household Members: Family Housing: House Do you presently have visiting nurse or other home services: No Alcohol intake: never Patient Tobacco Use Status: Never used Tobacco service: Yes Meds Allergies Allergy/AdvReac Type Severity Reaction Status Date / Time No Known Allergies Allergy Verified 09/18/24 16:33 Active Medications: Current Medications Acetaminophen (Acetaminophen 325 Mg Tablet) 650 mg PO Q6H PRN PRN Reason: Pain, Mild (Pain Scale 1-3), fever or headache Last Admin: 09/19/24 00:37 Dose: 650 mg Calcium Carbonate (Calcium Carbonate 750 Mg Tab.Chew) 750 mg PO Q4H PRN PRN Reason: Heartburn Doxazosin Mesylate (Doxazosin Mesylate 2 Mg Tablet) 4 mg PO BEDTIME [facility]; Protocol Last Admin: 09/20/24 19:47 Dose: 4 mg Finasteride (Finasteride 5 Mg Tablet) 5 mg PO DAILY [facility] Last Admin: 09/21/24 08:13 Dose: 5 mg Hydralazine HCl (Hydralazine Hcl 25 Mg Tablet) 25 mg PO BID [facility]; Protocol Last Admin: 09/21/24 08:13 Dose: 25 mg Labetalol HCl (Labetalol Hcl 200 Mg Tablet) 200 mg PO BID [facility]; Protocol Last Admin: 09/21/24 08:13 Dose: 200 mg Magnesium Hydroxide (Milk Of Magnesia 30 Ml Oral.Susp) 30 ml PO DAILY PRN PRN Reason: Constipation Melatonin (Melatonin 3 Mg Tablet) 6 mg PO BEDTIME PRN PRN Reason: Insomnia Last Admin: 09/19/24 00:38 Dose: 6 mg Ondansetron HCl (Ondansetron Hcl 4 Mg/2 Ml Vial) 4 mg IVPUSH Q8H PRN PRN Reason: Nausea and Vomiting Sodium Chloride (0.9 % Sodium Chloride Flush 3 Ml Syringe) 3 ml IVFLUSH QSHIFT [facility] Last Admin: 09/21/24 08:14 Dose: 3 ml Physical Exam Vital Signs: Last Vital Signs Temp 98.7 F 09/21/24 10:46 Pulse 63 09/21/24 10:46 Resp 16 09/21/24 10:46 BP 132/70 09/21/24 10:46 Pulse Ox 97 09/21/24 10:46 O2 Del Method Room Air 09/21/24 10:46 BMI result Body Mass Index 26.8 Awake. Comfortable. Neck is supple. Mucosa moist. Lungs bilateral scattered rhonchi. Heart S1-S2 heard no gallop. Abdomen soft. Extremities no edema. No involuntary movements. No myoclonus. Results Lab Results 09/19/24 06:52 09/21/24 05:48 Lab results: Chemistry 09/19/24 09/20/24 09/21/24 06:52 06:41 05:48 Sodium 141 141 138 Potassium 3.9 3.9 3.7 Carbon Dioxide 26 29 27 BUN 31 H 28 H 28 H Creatinine 2.72 H 2.33 H 1.98 H Calcium 9.2 9.3 8.9 Hematology 09/19/24 06:52 WBC 8.1 Hgb 12.7 L Plt Count 186 Urinalysis 09/18/24 18:58 Urine Color Yellow Urine Appearance Clear Urine pH 5.5 Ur Specific [place] 1.010 Urine Protein Negative Urine Glucose (UA) Negative Urine Ketones Negative Urine Blood Trace H Urine Nitrite Negative Ur Leukocyte Esterase Negative Urine RBC 3-5 H Urine WBC 0-5 Ur Squamous Epith Cells 0-2 Hyaline Casts 0-2 Assessment and Plan (1) NATHANIEL (acute kidney injury): Status: Acute Plan NATHANIEL superimposed on CKD NATHANIEL due to obstructive uropathy. Currently has a Tovar catheter and nonoliguric Keep intake more than output Renal recovery Await urological intervention. Watch serum potassium. She will follow along with the team Procedures Date of Service Date of Service: 09/21/24
--- NOTE | 2024-09-21 13:13 | P.DS_ITS ---
DS: Providers Provider Date of Service: 09/21/24 Date of admission: 09/18/24 21:51 Date of discharge: 09/21/24 Primary care physician: Unknown Physician Consults: 09/18/24 21:09 Consult to Nephrology Routine Consulting Provider: [facility] Reason for consultation: NATHANIEL Consult to Urology Routine Consulting Provider: [facility] Reason for consultation: urinary retention Attending physician on discharge: Rolando Waller DS: Diagnosis Discharge Diagnosis (1) NATHANIEL (acute kidney injury): Status: Acute (2) Acute retention of urine: Status: Acute DS: Summary Hospital Course Hospital Course: HPI From admission H&P: Pt is a 64-year-old male with a PMH significant for?HTN who presents to the ED from Nephrology office for ultrasound finding of urinary retention. Patient was recently diagnosed with hypertension approximately 1 week ago by his PCP and started on amlodipine 5 mg daily. Patient follows regularly with PCP and has never had a reported problem with blood pressure before. Labs were also ordered at that time and showed elevated creatinine that prompted an urgent visit with Nephrology. Patient was seen by Dr. Tian who sent patient for a renal ultrasound that incidentally found significant urinary retention up to 2L. Patient's BP was also elevated at 170/100. Given significant HTN, urinary retention, and worsening kidney function, patient was sent to the ED for further evaluation. Patient himself has no acute medical complaints. Denies headache. No changes to bowel or bladder habits. Denies dysuria, dribbling, or feeling of incomplete bladder emptying. Does state has perhaps been urinating more often than normal, but has been trying to drink a lot of water recently. Denies abdominal or pubic pain. No chest pain/pressure, palpitations. Denies shortness or breath or difficulty breathing. No fever, chills, nausea, vomiting, diarrhea. Of note, Dr. Tian started patient on 3 antihypertensives at today's visit: Labetalol 200 mg b.i.d., hydralazine 25 mg b.i.d., and furosemide 40 mg daily, which patient has yet to start. ? In the ED pt was hypertensive up to 223/89, vitals otherwise stable and WNL. Labs were significant for BUN 38 and creatinine 3.38. No leukocytosis. Stable H&H. No significant electrolyte abnormalities. UA negative for UTI. Renal U/S found moderate to severe bilateral hydronephrosis and distended urinary bladder with volume of 1.4-6.5 mL, and partially visualized prostatomegaly. CT of abdomen and pelvis found moderate to severe bilateral hydroureteronephrosis without renal or ureteral stone, nondistended urinary bladder, and prominent prostatomegaly.. In the ED pt had Tovar placed, where gross hematuria without clots noted, likely secondary to traumatic insertion. Pt will be admitted to the hospital for treatment and further evaluation of hypertensive urgency, NATHANIEL, and acute urinary retention likely secondary to prostatomegaly. Hospital Course: Presented with acute kidney injury on chronic kidney disease - baseline stage unknown, likely due to prostatomegaly and bladder outlet obstruction. The patient was evaluated by Urology as well as Nephrology. A Tovar catheter has been placed and with this the patient's renal function has improved significantly with creatinine dropping from over 3 to around 1.9 at the time of discharge. For his blood pressure the patient will be discharged on labetalol, hydralazine and also has been started on Cardura for his prostate megaly. He is to continue his finasteride and Cardura as well as keep his Tovar catheter in place. He is to follow up with Urology with recommendations for Tovar catheter to remain in place for 4 weeks. He is also to follow up with Nephrology. The case was discussed with Nephrology prior to discharge with acceptable renal function improvements at this time. Time Attestation Discharge Coordination Time (in mins): 40 Quality: Safe Use of Opioids Does Pt have an Active Cancer Diagnosis on the Problem List?: No Quality: Stroke Does the patient have a stroke diagnosis?: No Physical Exam Vital Signs: Vital Signs: Last Vital Signs Temp 98.7 F 09/21/24 10:46 Pulse 63 09/21/24 10:46 Resp 16 09/21/24 10:46 BP 132/70 09/21/24 10:46 Pulse Ox 97 09/21/24 10:46 O2 Del Method Room Air 09/21/24 10:46 BMI result Body Mass Index 26.8 Const: Other: General - no acute distress, appears comfortable Cardiovascular - regular rate and rhythm, S1-S2 Lungs - normal respiratory effort, clear to auscultation bilaterally, no wheezing Abdomen - soft, nontender, no rebound or guarding Extremities - no edema bilaterally Neuro - awake and alert, no focal deficits DS: Data Data Completed and Pending Labs on day of discharge: Laboratory Results - last 24 hr 09/21/24 05:48 Hold Purple Top SEE NOTE Sodium 138 Potassium 3.7 Chloride 101 Carbon Dioxide 27 Anion Gap 14 BUN 28 H Creatinine 1.98 H Estim Creat Clear Calc 45.6 Estimated GFR 34 Random Glucose 133 H Calcium 8.9 Discharge Plan Discharge Anticipated Discharge Date/Time: 09/21/24 13:10 Patient Disposition: Home, Self-Care Discharge Diagnosis: NATHANIEL Urinary retention Referrals: Poli Tomas MD [Physician] - 2 Weeks Reymundo Tian MD [Physician] - 1 Week Physician,Amanda J [Primary Care Provider] - 1 Week Discharge Medications: New finasteride 5 mg Tablet 5 mg PO DAILY Qty: 90 0RF doxazosin 2 mg Tablet 4 mg PO BEDTIME Qty: 90 0RF Protocol: Hold for SBP< HOLD for SBP < : 90 Continued labetalol 200 mg tablet 200 mg PO BID Qty: 60 1RF hydralazine 25 mg tablet 25 mg PO BID Qty: 60 1RF Held furosemide 40 mg tablet 40 mg PO DAILY Qty: 10 0RF Hold Instructions: Resume on 09/29/24. hold until seen by your pulmonary nurse practitioner Discharge Orders: Discharge Order (Routine); Ordered 09/21/24 Ordered By: Rolando Waller Diet: Advance to usual diet Activity on Discharge: As tolerated Stand Alone Forms: Patient Portal Discharge page Print Language: German Care Plan Goals: To stay healthy and out of the hospital. Health Concerns: see discharge summary Plan of Treatment: see discharge summary Assessment: see discharge summary
--- NOTE | 2024-09-21 14:14 | P.PNUR_ITS ---
Subjective Subjective Date of Service: 09/21/24 Interval history: Significant improvement in creatinine Blood pressure resolving Peripheral edema resolving Proximally 3000 cc negative fluid balance over past 2 days Will follow-up for voiding trial Prescription prostate medications have been given Physical Exam 2 Vital Signs: Vital Signs: Last Vital Signs Temp 98.7 F 09/21/24 10:46 Pulse 63 09/21/24 10:46 Resp 16 09/21/24 10:46 BP 132/70 09/21/24 10:46 Pulse Ox 97 09/21/24 10:46 O2 Del Method Room Air 09/21/24 10:46 BMI result Body Mass Index 26.8 Const: General: cooperative, healthy appearing, comfortable and no acute distress Orientation/consciousness: patient oriented x3 HEENT: Face and sinus: Yes normal facial exam Mouth: moist mucous membranes Neck: Neck: Yes normal visual inspection, Yes full ROM and Yes trachea midline Chest: Chest palpation & inspection: normal inspection of the chest Resp: Effort & Inspection: normal respiratory effort, able to speak in complete sentences and no respiratory distress GI: Inspection: Yes normal to inspection Back/Spine/Pelvis: Cervical Spine: normal cervical lordosis Thoracic/Lumbar Spine: thoracic and lumbar spine normal to inspection Skin: General skin exam: no rashes or lesions noted Neuro: General: patient oriented x3, tone normal and moves all extremities Extrem: General: Yes normal to inspection and Yes capillary refill normal Urology Results Labs 09/19/24 06:52 09/21/24 05:48 Labs: Laboratory Results - last 24 hr 09/21/24 05:48 Hold Purple Top SEE NOTE Sodium 138 Potassium 3.7 Chloride 101 Carbon Dioxide 27 Anion Gap 14 BUN 28 H Creatinine 1.98 H Estim Creat Clear Calc 45.6 Estimated GFR 34 Random Glucose 133 H Calcium 8.9 Progress Note: A&P Assessment and plan (1) NATHANIEL (acute kidney injury): Status: Acute (2) Acute retention of urine: Status: Acute Plan Continue catheter with q.4 hours drainage Outpatient voiding trial Time Spent With Patient Time: Total time managing care of this patient today ____ minutes. Progress Note: Quality Stroke Does the patient have a stroke diagnosis?: No
== END 2024-09-21 14:02 | disposition home or self-care (01) | DRG 726 ==
LOC: HO.ED 20:20 → HO.EDOVER 21:55 → HO.IMC 22:44
PROVIDERS: Registered Nurse Emergency; Student in an Organized Health Care Education/Training Program; Admitting Provider Student in an Organized Health Care Education/Training Program; Emergency Provider Emergency Medicine; PCP Hospitalist; Visit Provider Family Medicine
DX: N40.1 Benign prostatic hyperplasia with lower urinary tract symptoms (principal); N17.9 Acute kidney failure, unspecified; N13.30 Unspecified hydronephrosis; I16.0 Hypertensive urgency; I12.9 Hypertensive chronic kidney disease with stage 1 through stage 4 chronic kidney disease, or unspecified chronic kidney disease; N18.9 Chronic kidney disease, unspecified; R31.0 Gross hematuria; R33.8 Other retention of urine; Z79.899 Other long term (current) drug therapy
CPT/HCPCS: 36415; 74176; 80048; 80053; 81001; 83735; 85025; 93975; 99285; C1758; J0360

== ENCOUNTER → 2024-09-18 21:51 | Outpatient (BNV) | payer OTHER, SELFPAY | PROVIDERS: Admitting Provider Student in an Organized Health Care Education/Training Program; Emergency Provider Emergency Medicine; Visit Provider Internal Medicine Hypertension Specialist | DX: N17.9 Acute kidney failure, unspecified (principal); N18.9 Chronic kidney disease, unspecified | CPT/HCPCS: 99222 ==

== ENCOUNTER → 2024-09-18 21:51 | Outpatient (BNV) | payer OTHER, SELFPAY | PROVIDERS: Admitting Provider Student in an Organized Health Care Education/Training Program; Emergency Provider Emergency Medicine; Visit Provider Urology | DX: N17.9 Acute kidney failure, unspecified (principal); R33.8 Other retention of urine | CPT/HCPCS: 99222; 99232 ==

== ENCOUNTER → 2024-09-18 21:51 | Outpatient (BNV) | payer OTHER, SELFPAY | PROVIDERS: Admitting Provider Student in an Organized Health Care Education/Training Program; Emergency Provider Emergency Medicine; Visit Provider Student in an Organized Health Care Education/Training Program | DX: R33.8 Other retention of urine (principal); N17.9 Acute kidney failure, unspecified | CPT/HCPCS: 99223; 99232; 99239 ==

== ENCOUNTER 2024-10-01 14:55 | Outpatient (AMB) | payer OTHER, SELFPAY ==
--- NOTE | 2024-10-01 15:08 | HO.NEPHOV_ITS ---
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 He was never hypertensive prior to that and was started on Amlodipine by PCP which has caused edema. Denied headache or visual disturbances. No changes to bowel or bladder habits. Denies dysuria, dribbling, or feeling of incomplete bladder emptying. No chest pain/pressure, palpitations. Denies shortness or breath or difficulty breathing. No fever, chills, nausea, vomiting, diarrhea. No H/O excess NSAID use. He was evaluated in the office recently, Stat USS done at that time showed him to have obstructive uropathy with worsening creatinine. He had a Tovar catheter and was admitted for NATHANIEL. He was also seen by Urology. He continues to have an indwelling Tovar with improvement in serum creatinine. His BP is better controlled. He is due to have Urology follow up soon. He has no new systemic complaints at the time of this visit. [facility] Medical History (Updated 09/30/24 @ 23:02 by Reymundo Tian MD) NATHANIEL (acute kidney injury) Acute retention of urine Hypertension Family History Mother Diabetes type 2 Father Hypertension Social History Household Members: Family Housing: House Do you presently have visiting nurse or other home services: No Alcohol intake: never Patient Tobacco Use Status: Never used Tobacco service: Yes Review of Systems Const All systems reviewed & are unremarkable except as noted in HPI and below Physical Exam Vital Signs: Last Vital Signs Pulse 68 10/01/24 15:12 BP 150/80 H 10/01/24 15:12 Pulse Ox 98 10/01/24 15:12 Oxygen Delivery Method Room Air 10/01/24 15:12 BMI result Body Mass Index 27.2 Const General: comfortable and no acute distress Orientation/consciousness: patient oriented x3 HEENT Head: Yes normocephalic Mouth: Normal oral and palatal mucosa present Eyes EOM: EOMs intact bilaterally Neck Neck: Yes supple Resp Auscultation: clear to auscultation bilaterally Cardio Jugular venous distension: no JVD Rate: regular rate GI Palpation (GI): Soft to palpation Auscultation: normal bowel sounds General: Yes no CVA tenderness Back/Spine/Pelvis Back: no CVA tenderness Skin General skin exam: no rashes or lesions noted Neuro General: patient oriented x3 and moves all extremities Extrem General: Yes no pedal edema Results Reviewed Nephrology Results: Hgb 12.7 g/dl (14.0-18.0) L 09/19/24 WBC 8.1 X10*3/uL (4.8-10.8) 09/19/24 Plt Count 186 X10*3/uL (160-400) 09/19/24 Sodium 138 mmol/L (135-145) 09/21/24 Potassium 3.7 mmol/L (3.3-5.1) 09/21/24 Chloride 101 mmol/L (96-108) 09/21/24 Carbon Dioxide 27 mmol/L (22-29) 09/21/24 BUN 28 mg/dL (9-16) H 09/21/24 Creatinine 1.98 mg/dL (0.5-1.4) H 09/21/24 Calcium 8.9 mg/dL (8.4-10.2) 09/21/24 Phosphorus 3.5 mg/dL (2.7-4.5) 09/18/24 Urine Protein Negative mg/dL (Neg-Trace) 09/18/24 Urine Creatinine 58.33 mg/dL 09/18/24 Protein/Creatinin Ratio TNP 09/18/24 Renal US 09/19/24 Assessment & Plan Assessment & Plan (1) NATHANIEL (acute kidney injury): Code(s): N17.9 - Acute kidney failure, unspecified Category: Medical (2) Hypertension: Code(s): I10 - Essential (primary) hypertension Category: Medical Qualifiers: Hypertension type: primary hypertension Qualified Code(s): I10 - Essential (primary) hypertension Plan NATHANIEL due to obstructive uropathy; W/U otherwise negative Has an indwelling Tovar. Going to see Urology- ? voiding trial+ med vs surgical correction Will need F/U Renal USS . F/Ublood work ordered Unclear whether he has lost some GFR due to this C/W Labetalol and Hydralazine for now; No ACEI/ARB Low sodium diet; No NSAID's; Good hydration Answered all questions; F/U 6 weeks Orders: Orders Creatinine 09/28/24 N17.9 - Acute kidney failure, unspecified Creatinine 6 Weeks N17.9 - Acute kidney failure, unspecified Blood Urea Nitrogen 6 Weeks N17.9 - Acute kidney failure, unspecified Blood Urea Nitrogen 09/28/24 N17.9 - Acute kidney failure, unspecified Electrolytes 09/28/24 N17.9 - Acute kidney failure, unspecified Electrolytes 6 Weeks N17.9 - Acute kidney failure, unspecified Coding Level of Care Code Est Pt Level 4 (82924) Diagnoses NATHANIEL (acute kidney injury) N17.9 Primary hypertension I10 Hypertension type: primary hypertension
[2024-10-01 15:12] VITALS: BP 150/80; PULSE 68; O2SAT 98; BMI 27.2
--- OUTSIDE RECORDS SUMMARY | 2024-10-01 16:28 | XMS_ITS ---
Author Organization [place] Address [address] [facility] [address] [place] [address] Care Team Providers Care Log Haul Chain Feeder Name Role Phone LUIS ALBERTO ESPANA Primary Care Provider [phone] Allergies No Known Allergies REASON FOR VISIT 2 week follow up BP Medications Medication SIG (Take, Route, Frequency, Duration) Notes Start Date End Date Status Doxazosin Mesylate 2 MG 2 tablets Orally At bedtime Active Finasteride 5 MG 1 tablet Orally Once a day Active amLODIPine Besylate 5 MG 1 tablet Orally Once a day for 30 days 09/14/2024 Active hydrALAZINE HCl 25 MG 1 tablet with food Orally Twice a day Active Labetalol HCl 200 MG 1 tablet Orally Twice a day Active Social History Tobacco Use: Social History [...] Problem Status W/U Status Risk Notes Problem Lower urinary tract symptoms due to benign prostatic hypertrophy (91759382333943) Benign prostatic hyperplasia with lower urinary tract symptoms (N40.1) Active confirmed Vital Signs Temperature 97.5 degrees Fahrenheit 09/28/20 24 Oximetry 98 % 09/28/2024 Heart Rate 65 /min 09/28/2024 Blood pressure systolic 128 mm Hg 09/28/20 24 Blood pressure diastolic 62 mm Hg 024 Weight 215.5 lbs 09/28/2024 BMI 26.4 kg/m2 09/28/2024 Height 75.75 in 09/28/2024 Encounters Encounter Location Date Provider Diagnosis [facility] [address] [facility] [address] [place] [address] 09/28/2024 [facility] discharge follow-up Z09 ; Essential (primary) hypertension I10 and Benign prostatic hyperplasia with lower urinary tract symptoms N40.1 Assessments Encounter Date Diagnosis (ICD Code) Assessment Notes Treatment Notes Treatment Clinical Notes Section Notes 09/28/2024 Hospital discharge follow-up (ICD-10 - Z09) Yefri is 64 years old gentleman we did recently diagnosed with worsening kidney function most likely secondary to BPH. Initially his EGFR was 27 and it is 39 on recent blood work. He has indwelling Tovar catheter which is draining appropriately. Plan is as follows Chronic kidney disease stage IIIb. Most likely secondary to BPH. He saw a consumer loan manager and urologist. Currently he has a indwelling catheter and is going to follow-up with urology in the next 2-3 days. Hypertension. Blood pressure well controlled on current regimen as mentioned above. Low sodium diet recommended. Avoid NSAIDs and take Tylenol for the pain. 09/28/2024 Essential (primary) hypertension (ICD-10 - I10) Yefri is 64 years old gentleman we did recently diagnosed with worsening kidney function most likely secondary to BPH. Initially his EGFR was 27 and it is 39 on recent blood work. He has indwelling Tovar catheter which is draining appropriately. Plan is as follows Chronic kidney disease stage IIIb. Most likely secondary to BPH. He saw a consumer loan manager and urologist. Currently he has a indwelling catheter and is going to follow-up with urology in the next 2-3 days. Hypertension. Blood pressure well controlled on current regimen as mentioned above. Low sodium diet recommended. Avoid NSAIDs and take Tylenol for the pain. 09/28/2024 Benign prostatic hyperplasia with lower urinary tract symptoms (ICD-10 - N40.1) Yefri is 64 years old gentleman we did recently diagnosed with worsening kidney function most likely secondary to BPH. Initially his EGFR was 27 and it is 39 on recent blood work. He has indwelling Tovar catheter which is draining appropriately. Plan is as follows Chronic kidney disease stage IIIb. Most likely secondary to BPH. He saw a consumer loan manager and urologist. Currently he has a indwelling catheter and is going to follow-up with urology in the next 2-3 days. Hypertension. Blood pressure well controlled on current regimen as mentioned above. Low sodium diet recommended. Avoid NSAIDs and take Tylenol for the pain. Plan Of Treatment Future Test Test Name Order Date CBC, No Differential/Platelet-[id number] Basic Metabolic Panel [id number] Next Appt Details Follow Up: 3 Months, Reason: Provider Name:LUIS ALBERTO ESPANA , 12/15/2024 08:15:00 AM, [address] [place] [address], [place], [address], Progress Notes * Yefri BYERSDOB:1959 (64 yo M)Acc No.[id number]:09/28/2024 Progress Notes Patient:?Yefri BYERS Provider:?LUIS ALBERTO ESPANA MD :1960???Age:64 Y???Sex:Male Chucho e:09/28/2024 [address] [place], [place] [address] Subjective: * Chief Complaints: * ???2 week follow up BP * HPI: ???Internal Medicine:? Yefri is 64 years old gentleman who is here today for follow-up after admission at [facility] for worsening kidney function.? He was seen by Dr. Tian and was also seen by urologist Dr. Poli Miner.? He was found to have BPH with urinary symptoms and Tovar catheter was placed.? His blood pressure was also maintained on labetalol 200 mg 1 tablet twice a day, amlodipine 5 mg daily, hydralazine 25 mg 1 tablet twice a day and finasteride 5 mg along with doxazosin 2 mg 2 tablets at bedtime.? Records of the hospital are not available.? He feels much better.? There is no pedal edema.? He is urinating through the catheter.? No chest pain, pressure, shortness of breath and no other exertional symptoms. * ROS:?General/Constitutional:?Overall health?Good.?Change in appetite?denies.?Chills?denies.?Fever?denies.?Night sweats?denies.?Sleep disturbance?denies.?Weight [...] History:? * Hospitalization/Major Diagno stic Procedure:? * Family History:?Father: diag nosed with Heart Disease.?Mother: diagnosed with Diabetes.?Paternal Grand Father: diagnosed with Heart Disease.? * Social History:?Tobacco Use:?Tobacco Use/Smoking?Are you a?nonsmoker ???Drugs/Alcohol:?Alcohol Screen (Audit-C)?Did you have a drink containing alcohol in the past year??No ?Points?0 ?Interpretation?Negative ???Miscellaneous:?Exercise: yes, 5 days a week. ?Marital status: . ?Occupation: Works full-time. * Medications:?TakingDoxazosin Mesylate 2 MG Tablet 2 tablets Orally At bedtime Finasteride 5 MG Tablet 1 tablet Orally Once a day hydrALAZINE HCl 25 MG Tablet 1 tablet with food Orally Twice a day Labetalol HCl 200 MG Tablet 1 tablet Orally Twice a day amLODIPine Besylate 5 MG Tablet 1 tablet Orally Once a day Medication List reviewed and reconciled with the patientTaking Doxazosin Mesylate 2 MG Tablet 2 tablets Orally At bedtime Taking Finasteride 5 MG Tablet 1 tablet Orally Once a day Taking hydrALAZINE HCl 25 MG Tablet 1 tablet with food Orally Twice a day Taking Labetalol HCl 200 MG Tablet 1 tablet Orally Twice a day Taking amLODIPine Besylate 5 MG Tablet 1 tablet Orally Once a day Medication List reviewed and reconciled with the patient * Allergies:?N.K.D.A.no[Allerg ies Verified] Objective: * Vitals:?Temp:97.5F, Oxygen s at %:98%, HR:65/min, BP:128/62mm Hg, Wt:215.5lbs, BMI:26.4Index, Ht: 75.75 in. * ???Past Orders: ???Lab:Comp. Metabolic Panel [id number] (Order Date - 09/14/2024) (Collection Date & Time - 09/25/2024 09:04 AM) ? Value Reference Range ?Glucose 125 H 70-99 - mg/d L ?BUN 28 H 8-27 - mg/dL ?Creatinine 1.90 H 0.76-1.27 - mg/dL ?BUN/Creatinine Ratio 15 10-24 - ?Sodium 140 134-144 - mmo l/L ?Potassium 3.9 3.5-5.2 - mmol/L ?Chloride 101 96-106 - mm ol/L ?Carbon Dioxide, Total 25 20-29 - mmol/L ?Calcium 9.4 8.6-10.2 - m g/dL ?Protein, Total 6.2 6.0-8 .5 - g/dL ?Albumin 4.2 3.9-4.9 - g/ dL ?Globulin, Total 2.0 1.5- 4.5 - g/dL ?Bilirubin, Total 0.4 0.0 -1.2 - mg/dL ?Alkaline Phosphatase 60 44-121 - IU/L ?AST (SGOT) 16 0-40 - IU /L ?eGFR 39 L >59 - mL/min/1. 73 ???Lab:Albumin, 24-Hr Urine- [id number] (Order Date - 09/14/2024) (Collection Date & Time - 09/14/2024 07:00 AM) ? Value Reference Range ?Albumin, Urine 8.4 Not E stab. - ug/mL ?Albumin,Urine mg/day 26 0-29 - mg/day ???Lab:Prostate-Specific Ag- [id number] (Order Date - 09/11/2024) (Collection Date & Time - 09/11/2024 07:23 AM) ? Value Reference Range ?Prostate Specific Ag 7.1 H 0.0-4.0 - ng/mL ???Lab:LP+Non-HDL Cholestero l-[id number] (Order Date - 09/11/2024) (Collection Date & Time - 09/11/2024 07:23 AM) ? Value Reference Range ?Cholesterol, Total 159 1 00-199 - mg/dL ?Triglycerides 83 0-149 - mg/dL ?HDL Cholesterol 54 >39 - mg/dL ?VLDL Cholesterol Danny 16 5-40 - mg/dL ?LDL Chol Calc ([facility]) 89 0-99 - mg/dL ?Non-HDL Cholesterol 105 0-129 - mg/dL ???Lab:Comp. Metabolic Panel [id number] (Order Date - 09/11/2024) (Collection Date & [...] ?eGFR 27 L >59 - mL/min/1. 73 * Examination: ???General Examination: ?Psychiatry?Normal.?GENERAL APPEARANCE:?Well developed, well nourished, in no acute distress.?MUSCULOSKELETAL:?Normal.?HEAD:?Normocephalic, atraumatic.?EYES:?Pupils equal, round, reactive to light and accommodation, sclera non-icteric.?EARS:?Normal.?ORAL CAVITY:?Normal.?THROAT:?Clear.?OROPHARYNX?Normal.?SINUSES?Normal.?NECK/THYROID:?Neck supple, full range of motion, no cervical lymphadenopathy.?SKIN:?Warm and dry, no suspicious lesions.?HEART:?regular rate and rhythm,? 2/6?systolic murmur at apex,.?LUNGS:?clear anteriorly and posteriorly good air movement no wheezes, rales, rhonchi .?BREASTS:?__.?ABDOMEN:?Soft, nontender, nondistended, bowel sounds present, normal.?EXTREMITIES:?Normal.?PERIPHERAL PULSES:?Normal.?NEUROLOGIC:?Nonfocal,? appropriate?motor strength normal upper and lower extremities, sensory exam intact.?FEMALE GENITOURINARY:?__.?MALE GENITOURINARY:?indwelling Tovar catheter which is draining appropriately.?PODIATRIC:?Normal.?Nurse Practitioner Hospitalist? .? Assessment: * Assessment: 1.?Hospital discharge follow -up - Z09 (Primary)???2.?Essential (primary) hypertension - I10???3.?Benign prostatic hyperplasia with lower urinary tract symptoms - N40.1??? Yefri is 64 years old gent sofía we did recently diagnosed with worsening kidney function most likely secondary to BPH.? Initially his EGFR was 27 and it is 39 on recent blood work.? He has indwelling Tovar catheter which is draining appropriately.? Plan is as follows Chronic kidney disease stage IIIb.? Most likely secondary to BPH.? He saw a consumer loan manager and urologist.? Currently he has a indwelling catheter and is going to follow-up with urology in the next 2-3 days. Hypertension.? Blood pressure well controlled on current regimen as mentioned above.? Low sodium diet recommended.? Avoid NSAIDs and take Tylenol for the pain. Plan: * Treatment: * Procedure Codes:?3074F SYST BP LT 130 MM [id number] DIAST BP < 80 MM HG * Follow Up:?3 Months * * Sign off status: Completed true * Provider:?LUIS ALBERTO ESPANA MD Date:?09/28 Generated for Keila be/Timbo/Gelasmitting on:?10/01/2024 04:28 PM EST History and Physical Notes * HPI (History of Present Illness) Category Sub-Category Detail Notes Category Not es Internal Medicine Yefri is 64 years old gentleman who is here today for follow-up after admission at [facility] for worsening kidney function. He was seen by Dr. Tian and was also seen by urologist Dr. Poli Miner. He was found to have BPH with urinary symptoms and Tovar catheter was placed. His blood pressure was also maintained on labetalol 200 mg 1 tablet twice a day, amlodipine 5 mg daily, hydralazine 25 mg 1 tablet twice a day and finasteride 5 mg along with doxazosin 2 mg 2 tablets at bedtime. Records of the hospital are not available. He feels much better. There is no pedal edema. He is urinating through the catheter. No chest pain, pressure, shortness of breath and no other exertional symptoms. Examination Category Sub-Category Detail Notes Category Not es General Examination GENERAL APPEARANCE: Well dev eloped, well nourished, in no acute distress HEAD: Normocephalic, atrau matic EYES: Pupils equal, round, reactive to light and accommodation, sclera non-icteric EARS: Normal THROAT: Clear NECK/THYROID: Neck supple, full ra nge of motion, no cervical lymphadenopathy HEART: regular rate and rhy thm, 2/6 systolic murmur at apex, LUNGS: clear anteriorly and posteriorly good air movement no wheezes, rales, rhonchi ABDOMEN: Soft, nontender, non distended, bowel sounds present, normal NEUROLOGIC: Nonfocal, appropriat e motor strength normal upper and lower extremities, sensory exam intact SKIN: Warm and dry, no trent picious lesions EXTREMITIES: Normal PERIPHERAL PULSES: Normal BREASTS: __ MUSCULOSKELETAL: Normal MALE GENITOURINARY: indwelling Tovar cat heter which is draining appropriately FEMALE GENITOURINARY: __ ORAL CAVITY: Normal PODIATRIC: Normal Psychiatry Normal OROPHARYNX Normal SINUSES Normal Nurse Practitioner Hospitalist
--- OUTSIDE RECORDS SUMMARY | 2024-10-01 16:29 | XMS_ITS | Patient Health Record ---
Author Organization [employer] Address [address] [facility] [address] [place] [address] Care Team Providers Care Scissors Grinder Name Role Phone LUIS ALBERTO ESPANA Primary Care Provider [phone] Lois Quiñonez Unavailable [phone] Allergies No Known Allergies Results Component Value Reference Range Notes Albumin, 24-Hr Urine-[id number] Reviewed date:09/15/2024 04:30:55 PM Interpretation: Performing Lab:[facility], [address] [facility], Phone - [phone], Director - MDJodry Notes/Report: Albumin, Urine 8.4 Not Estab. ug/mL Albumin,Urine mg/day 26 0-29 mg/day Normal: 0 - 29 Moderately increased: 30 - 300 Severely increased: >300 Comp. Metabolic Panel ([id number] Reviewed date:09/14/2024 07:58:10 AM Interpretation: Performing Lab:[facility], [address] [facility], Phone - [phone], Director - MDJodry Notes/Report: Glucose 102 70-99 [...] IU/L ALT (SGPT) 12 0-44 IU/L LP+Non-HDL Cholesterol-[id number] 5 Reviewed date:09/14/2024 07:58:17 AM Interpretation: Performing Lab:[facility], [address] [facility], Phone - [phone], Director - MDdry Notes/Report: Cholesterol, Total 159 100-199 mg/dL Triglycerides 83 0-149 mg/dL HDL Cholesterol 54 >39 mg/dL VLDL Cholesterol Danny 16 5-40 mg/dL LDL Chol Calc ([facility]) 89 0-99 mg/dL Non-HDL Cholesterol 105 0-129 mg/dL Prostate-Specific Ag-[id number] Reviewed date:09/14/2024 07:57:35 AM Interpretation: Performing Lab:[facility], [address] [facility], Phone - [phone], Director - [facility] Notes/Report: Prostate Specific Ag 7.1 0.0-4.0 ng/mL [place] ECLIA methodology. . According to the [place] [employer], Serum PSA should decrease and [...] the presence or absence of malignant disease. Comp. Metabolic Panel [id number] Reviewed date:09/28/2024 08:06:07 AM Interpretation: Performing Lab:[facility], [address] [facility], [place], Phone - [phone], Director - MDdry Notes/Report: Glucose 125 70-99 mg/dL BUN 28 8-27 mg/dL Creatinine 1.90 0.76-1.27 mg/dL eGFR 39 >59 mL/min/1.73 BUN/Creatinine Ratio 15 10-24 Sodium 140 134-144 mmol/L Potassium 3.9 3.5-5.2 mmol/L Chloride 101 96-106 mmol/L Carbon Dioxide, Total 25 20-29 mmol/L Calcium 9.4 8.6-10.2 mg/dL Protein, Total 6.2 6.0-8.5 g/dL Albumin 4.2 3.9-4.9 g/dL Globulin, Total 2.0 1.5-4.5 g/dL Bilirubin, Total 0.4 0.0-1.2 mg/dL Alkaline Phosphatase 60 44-121 IU/L AST (SGOT) 16 0-40 IU/L Reason For Referral Reason acute renal failure please send to Dr. Rocky Beard Diagnosis 1 Acute kidney failure , unspecified (N17.9) Referral Organization [facility] Referring Provider First Name Lois Referring Provider Last Name Olamide Referring Provider Speciality Internal edicine Referred Provider Specialty Nephrology General Notes Faxed to [facility]. I called the office to make an appt but the referral has to be reviewed prior to scheduling per Rene Christianson Kayla 09/14/2024 03:55:43 PM > Referral Priority Urgent Reason elevated PSA of 7.1 with renal failure Diagnosis 1 Elevated prostate sp ecific antigen [PSA] (R97.20) Referral Organization [facility] Referring Provider First Name Lois Referring Provider Last Name Olamide Referring Provider Speciality Internal edicine Referred Provider Specialty Urology General Notes [facility] Katrina 09/17/2024 11:15:37 AM > Referral Priority [...] 1 tablet Orally Twice a day Active Immunizations Vaccine Route Administration Date Status [...] W/U Status Risk Notes Problem Essential hypertension (55982795) Essential (primary) hypertension (I10) Active confirmed Problem Lower urinary tract symptoms due to benign prostatic hypertrophy (77964524963629) Benign prostatic hyperplasia with lower urinary tract symptoms (N40.1) Active confirmed Problem Essential hypertension (93967560) HTN (hypertension), benign (I10) Active confirmed Vital Signs Heart Rate 65 /min 09/28/2024 Temperature 97.5 degrees Fahrenheit 09/28/2024 Blood pressure diastolic 62 mm Hg 09/28/2024 Oximetry 98 % 09/28/2024 Height 75.75 in 09/28/2024 Blood pressure systolic 128 mm Hg 09/28/2024 Weight 215.5 lbs 09/28/2024 BMI 26.4 kg/m2 09/28/2024 Encounters Encounter Location Date Provider Diagnosis [address] [place] [address] 12/10/2023 [facility] Essential (primary) hypertension I10 ; Encounter for general adult medical examination without abnormal findings Z00.00 and Cardiac murmur, unspecified R01.[address] [place] [address] 09/14/2024 [facility] Acute renal disease N28.9 ; HTN (hypertension), benign I10 and Impaired fasting blood sugar R73.[address] [place] [address] 09/28/2024 [facility] Hospital discharge follow-up Z09 ; Essential (primary) hypertension I10 and Benign prostatic hyperplasia with lower urinary tract symptoms N40.[address] [place] [address] 09/28/[address] [place] [address] 09/17/[address] [place] [address] 09/17/2024 LUIS ALBERTO ESPANA Assessments Encounter Date [...] and baseline. Eye screening. He sees his apparel manager regularly. Dental screening. He sees dentist regularly. Skin screening. No skin issues at this point. Colon cancer screening. He had his colonoscopy done in 2013 and is on [id number]. Immunizations. Declines vaccinations. Screening blood work before next appointment. General health concerns discussed with patient. Scribe services used to formulate this note under HIPAA compliance and under [place] law mandated for scribe services. Patient aware [...] and baseline. Eye screening. He sees his apparel manager regularly. Dental screening. He sees dentist regularly. Skin screening. No skin issues at this point. Colon cancer screening. He had his colonoscopy done in 2013 and is on [id number]. Immunizations. Declines vaccinations. Screening blood work before next appointment. General health concerns discussed with patient. Scribe services used to formulate this note under HIPAA compliance and under [place] law mandated for scribe services. Patient aware of service. Verbal consent and written consent taken from the patient. Patient understands and verbalizes understanding of the scribes services and all questions answered regarding scribes services. Patient agrees to use of scribes services. 09/28/2024 Essential (primary) hypertension (ICD-10 - I10) [...] likely secondary to BPH. He saw a oven laborer and urologist. Currently he has a indwelling catheter and is going to follow-up with urology in the next 2-3 days. Hypertension. Blood pressure well controlled on current regimen as mentioned above. Low sodium diet recommended. Avoid NSAIDs and take Tylenol for the pain. 09/28/2024 Hospital discharge follow-up (ICD-10 - Z09) [...] likely secondary to BPH. He saw a oven laborer and urologist. Currently he has a indwelling [...] likely secondary to BPH. He saw a oven laborer and urologist. Currently he has a indwelling catheter and is going to follow-up with urology in the next 2-3 days. Hypertension. Blood pressure well controlled on current regimen as mentioned above. Low sodium diet recommended. Avoid NSAIDs and take Tylenol for the pain. 09/14/2024 Impaired fasting blood sugar (ICD-10 - [...] is aware and will follow through 12/10/2023 Cardiac murmur, unspecified (ICD-10 - R01.1) [...] and baseline. Eye screening. He sees his apparel manager regularly. Dental screening. He sees dentist regularly. Skin screening. No skin issues at this point. Colon cancer screening. He had his colonoscopy done in 2013 and is on [id number]. Immunizations. Declines vaccinations. Screening blood work before next appointment. General health concerns discussed with patient. Scribe services used to formulate this note under HIPAA compliance and under [place] law mandated for scribe services. Patient aware of service. Verbal consent and written consent taken from the patient. Patient understands and verbalizes understanding of the scribes services and all questions answered regarding scribes services. Patient agrees to use of scribes services. Plan Of Treatment Pending Test Test Name Order Date Echocardiogram 12/10/2023 US Renal and Bladder 09/14/2024 Hemoglobin [id number] 09/14/2024 Future Test Test Name Order Date CBC, No Differential/Platelet-[id number] Basic Metabolic Panel [id number] Next Appt Details Provider Name:LUIS ALBERTO ESPANA , 12/15/2024 08:15:00 AM, [address] [place], [address], Insurance Providers Payer Name Payer Address Payer Phone Subscriber Number Group Number Insured Name Patient Relationship to Insured Coverage Start Date Coverage End Date [facility] [address] [place] [address] [id number] Yefri Rubio Self - patient is the insured Medical (General) History Medical History History ICD Code Personal history of COVID-19
--- OUTSIDE RECORDS SUMMARY | 2024-10-01 16:29 | XMS_ITS ---
Author Organization [facility] Address [address] [address] Care Team Providers Care Food And Beverage Outlets Manager Name Role Phone LUIS ALBERTO ESPANA Primary Care Provider [phone] REASON FOR VISIT referral Encounters Encounter Location Date Provider Diagnosis [facility] [address] [facility] [address] [place] [address] 09/17/2024 LUIS ALBERTO ESPANA Plan Of Treatment Next Appt Details Provider Name:LUIS ALBERTO ESPANA , 12/15/2024 08:15:00 AM, [address] [facility] [address], [place], [address], Progress Notes * Yefri BYERSDOB:1959 (64 yo M)Acc No.[id number]:09/17/2024 Patient:?Yefri BYERS :1960???Age:64 Y???Sex:Male Address:[place] [address] * true * Date:? Generated for Printi haile/Timbo/eTransmitting on:?10/01/2024 04:28 PM EST
== END 2024-10-01 15:44 | disposition home or self-care (01) ==
PROVIDERS: PCP Hospitalist; Visit Provider Internal Medicine Nephrology
DX: N17.9 Acute kidney failure, unspecified (principal); I10 Essential (primary) hypertension
CPT/HCPCS: 99214

== ENCOUNTER → 2024-10-01 14:55 | Outpatient (BNVA) | payer OTHER, SELFPAY | PROVIDERS: PCP Hospitalist; Visit Provider Internal Medicine Nephrology | DX: N17.9 Acute kidney failure, unspecified (principal) ==

== ENCOUNTER → 2024-10-13 08:55 | Outpatient (BNVA) | payer OTHER, SELFPAY | PROVIDERS: PCP Hospitalist; Visit Provider Urology | DX: R33.8 Other retention of urine (principal); N17.9 Acute kidney failure, unspecified | CPT/HCPCS: 51700 ==

== ENCOUNTER 2024-11-10 15:04 | Outpatient (AMB) | payer OTHER, SELFPAY ==
--- NOTE | 2024-11-10 15:19 | HO.NEPHOV_ITS ---
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 He was never hypertensive prior to that and was started on Amlodipine by PCP which has caused edema. Denied headache or visual disturbances. No changes to bowel or bladder habits. Denies dysuria, drib cinthya, or feeling of incomplete bladder emptying. No chest pain/pressure, palpitations. Denies shortness or breath or difficulty breathing. No fever, chills, nausea, vomiting, diarrhea. No H/O excess NSAID use. He was evaluated in the office recently, Stat USS done at that time showed him to have obstructive uropathy with worsening creatinine. He had a Tovar catheter and was admitted for NATHANIEL. He was also seen by Urology. He continues to have an indwelling Tovar with improvement in serum creatinine. His BP is better controlled. He is due to have Urology follow up soon. He has no new systemic complaints at the time of this visit. [facility] Medical History (Updated 09/30/24 @ 23:02 by Reymundo Tian MD) NATHANIEL (acute kidney injury) Acute retention of urine Hypertension Family History Mother Diabetes type 2 Father Hypertension Social History Household Members: Family Housing: House Do you presently have visiting nurse or other home services: No Alcohol intake: never Patient Tobacco Use Status: Never used Tobacco service: Yes Review of Systems Const All systems reviewed & are unremarkable except as noted in HPI and below Physical Exam Vital Signs: Last Vital Signs Pulse 53 11/10/24 15:20 BP 150/90 H 11/10/24 15:20 Pulse Ox 98 11/10/24 15:20 Oxygen Delivery Method Room Air 11/10/24 15:20 BMI result Body Mass Index 27.5 Const General: comfortable and no acute distress Orientation/consciousness: patient oriented x3 HEENT Head: Yes normocephalic Mouth: Normal oral and palatal mucosa present Eyes EOM: EOMs intact bilaterally Neck Neck: Yes supple Resp Auscultation: clear to auscultation bilaterally Cardio Jugular venous distension: no JVD Rate: regular rate GI Palpation (GI): Soft to palpation Auscultation: normal bowel sounds General: Yes no CVA tenderness Back/Spine/Pelvis Back: no CVA tenderness Skin General skin exam: no rashes or lesions noted Neuro General: patient oriented x3 and moves all extremities Extrem General: Yes no pedal edema Results Reviewed Nephrology Results: Hgb 12.7 g/dl (14.0-18.0) L 09/19/24 WBC 8.1 X10*3/uL (4.8-10.8) 09/19/24 Plt Count 186 X10*3/uL (160-400) 09/19/24 Sodium 138 mmol/L (135-145) 09/21/24 Potassium 3.7 mmol/L (3.3-5.1) 09/21/24 Chloride 101 mmol/L (96-108) 09/21/24 Carbon Dioxide 27 mmol/L (22-29) 09/21/24 BUN 28 mg/dL (9-16) H 09/21/24 Creatinine 1.98 mg/dL (0.5-1.4) H 09/21/24 Calcium 8.9 mg/dL (8.4-10.2) 09/21/24 Phosphorus 3.5 mg/dL (2.7-4.5) 09/18/24 Urine Protein Negative mg/dL (Neg-Trace) 09/18/24 Urine Creatinine 58.33 mg/dL 09/18/24 Protein/Creatinin Ratio TNP 09/18/24 Renal US 09/19/24 Assessment & Plan Assessment & Plan (1) NATHANIEL (acute kidney injury): Code(s): N17.9 - Acute kidney failure, unspecified Category: Medical (2) Hypertension: Code(s): I10 - Essential (primary) hypertension Category: Medical Qualifiers: Hypertension type: primary hypertension Qualified Code(s): I10 - Essential (primary) hypertension Plan NATHANIEL due to obstructive uropathy; W/U otherwise negative Has an indwelling Tovar. Going to see Urology- ? voiding trial+ med vs surgical correction Will need F/U Renal USS . F/Ublood work ordered; May need to start Doxazosin Unclear whether he has lost some GFR due to this C/W Labetalol and Hydralazine for now; No ACEI/ARB Low sodium diet; No NSAID's; Good hydration Answered all questions; F/U 3 months Orders: Orders Creatinine 4 Months I10 - Essential (primary) hypertension, N17.9 - Acute kidney failure, unspecified Blood Urea Nitrogen 4 Months I10 - Essential (primary) hypertension, N17.9 - Acute kidney failure, unspecified Electrolytes 4 Months I10 - Essential (primary) hypertension, N17.9 - Acute kidney failure, unspecified Coding Level of Care Code Est Pt Level 4 (39358) Diagnoses NATHANIEL (acute kidney injury) N17.9 Primary hypertension I10 Hypertension type: primary hypertension
[2024-11-10 15:20] VITALS: BP 150/90; PULSE 53; O2SAT 98; BMI 27.5
--- OUTSIDE RECORDS SUMMARY | 2024-11-10 15:54 | XMS_ITS | Clinical Summary ---
Author Organization [facility] Address [address] [place] [address] Care Team Providers Care Leak Gang Supervisor Name Role Phone Unavailable Primary Care Provider Unavailabl e Source Comments PLEASE NOTE, if this patient is a minor, it may be UNLAWFUL to discuss sensitive information that is contained in these records (such as FAMILY PLANNING, MENTAL HEALTH or SUBSTANCE ABUSE) with the minor patient's parent or other person without the patient's specific authorization.[facility] Allergies No known active allergies Active Problems No known active problems Immunizations Name Administration Dates Next Due INFLUENZA, SEASONAL, INJECTABLE 06/12/2013 TDAP 03/19/2011 Family History Relation Name Status Comments Father Alive Mother Social History Tobacco Use Types Packs/Day Years Used Date Smoking Tobacco: Never Alcohol Use Standard Drinks/Week Comments No 0 (1 standard drink = 0.6 oz pur e alcohol) Sex and Gender Information Value Date Recorded Sex Assigned at Not on file Legal Sex Male 12:02 PM PDT Gender Identity Not on file Sexual Orientation Not on file Last Filed Vital Signs Vital Sign Reading Time Taken Comments Blood Pressure 140/90 06/12/2013 11:24 AM EDT Pulse 80 06/12/2013 11:24 AM EDT Temperature 36.6 ??C (97.9 ??F) 06/12/2013 11:24 AM E DT Respiratory Rate 20 06/12/2013 11:24 AM EDT Oxygen Saturation - - Inhaled Oxygen Concentration - - Weight 97.1 kg (214 lb) 06/12/2013 11:24 AM EDT Height 193 cm (6' 4 ) 06/12/2013 11:24 AM EDT Body Mass Index 26.05 06/12/2013 11:24 AM EDT Plan of Treatment Not on file Insurance [employer]
--- OUTSIDE RECORDS SUMMARY | 2024-11-10 15:54 | XMS_ITS ---
Author Organization [employer] Address [address] [place] [address] Care Team Providers Care Warehouse General Laborer Name Role Phone LUIS ALBERTO ESPANA Primary Care Provider Allergies No Known Allergies REASON FOR VISIT [...] tract symptoms due to benign prostatic hypertrophy ([id number]) Benign prostatic hyperplasia with lower urinary tract symptoms (N40.1) Active confirmed Vital Signs Temperature 97.5 degrees Fahrenheit 09/28/20 24 Oximetry 98 % 09/28/2024 Heart Rate 65 /min 09/28/2024 Blood pressure systolic 128 mm Hg 09/28/20 24 Blood pressure diastolic 62 mm Hg 024 Weight 215.5 lbs 09/28/2024 BMI 26.4 kg/m2 09/28/2024 Height 75.75 in 09/28/2024 Encounters Encounter Location Date Provider Diagnosis [facility] [address] [place] [address] 09/28/2024 [facility] discharge follow-up Z09 ; Essential (primary) hypertension [...] likely secondary to BPH. He saw a control equipment electrician and urologist. Currently he has a indwelling [...] likely secondary to BPH. He saw a control equipment electrician and urologist. Currently he has a indwelling [...] likely secondary to BPH. He saw a control equipment electrician and urologist. Currently he has a indwelling catheter and is going to follow-up with urology in the next 2-3 days. Hypertension. Blood pressure well controlled on current regimen as mentioned above. Low sodium diet recommended. Avoid NSAIDs and take Tylenol for the pain. Plan Of Treatment Future Test Test Name Order Date CBC, No Differential/Platelet-[id number] Next Appt Details Follow Up: 3 Months, Reason: Provider Name:LUIS ALBERTO ESPANA , 12/15/2024 08:15:00 AM, [address] [place] [address], [place], [address], Progress Notes * Yefri BYERSDOB:1959 (64 yo M)Acc No.[id number]:09/28/2024 Progress Notes Patient:?Yefri BYERS Provider:?LUIS ALBERTO ESPANA MD :1960???Age:64 Y???Sex:Male Chucho e:09/28/2024 Address:[address] [place], [place] [address] Subjective: * Chief Complaints: * ???2 week follow up BP * HPI: ???Internal Medicine:? Yefri is 64 years old gentleman who is here today for follow-up after admission at [facility] for worsening kidney function.? He was seen [...] in. * ???Past Orders: ???Lab:Comp. Metabolic Panel ([id number] (Order Date - 09/14/2024) (Collection Date & [...] >59 - mL/min/1. 73 ???Lab:Albumin, 24-Hr Urine- [id number] (Order Date - 09/14/2024) (Collection Date & Time - 09/14/2024 07:00 AM) ? Value Reference Range ?Albumin, Urine 8.4 Not E stab. - ug/mL ?Albumin,Urine mg/day 26 0-29 - mg/day ???Lab:Prostate-Specific Ag- [id number] (Order Date - 09/11/2024) (Collection Date & Time - 09/11/2024 07:23 AM) ? Value Reference Range ?Prostate Specific Ag 7.1 H 0.0-4.0 - ng/mL ???Lab:LP+Non-HDL Cholestero l-[id number] (Order Date - 09/11/2024) (Collection Date & Time - 09/11/2024 07:23 AM) ? Value Reference Range ?Cholesterol, Total 159 1 00-199 - mg/dL ?Triglycerides 83 0-149 - mg/dL ?HDL Cholesterol 54 >39 - mg/dL ?VLDL Cholesterol Danny 16 5-40 - mg/dL ?LDL Chol Calc ([facility]) 89 0-99 - mg/dL ?Non-HDL Cholesterol 105 0-129 - mg/dL ???Lab:Comp. Metabolic Panel ([id number] (Order Date - 09/11/2024) (Collection Date & [...] GENITOURINARY:?__.?MALE GENITOURINARY:?indwelling Tovar catheter which is draining appropriately.?PODIATRIC:?Normal.?Assistant Unit Forester? .? Assessment: * Assessment: 1.?Hospital discharge follow [...] likely secondary to BPH.? He saw a control equipment electrician and urologist.? Currently he has a indwelling catheter and is going to follow-up with urology in the next 2-3 days. Hypertension.? Blood pressure well controlled on current regimen as mentioned above.? Low sodium diet recommended.? Avoid NSAIDs and take Tylenol for the pain. Plan: * Treatment: * Procedure Codes:?3074F SYST BP LT 130 MM [id number] DIAST BP < 80 MM HG * Follow Up:?3 Months * * Sign off status: Completed true * Provider:?LUIS ALBERTO ESPANA MD Date:?09/28 Generated for Keila be/Timbo/Clarenceitting on:?11/10/2024 03:54 PM EST History and Physical Notes * HPI (History of Present Illness) Category Sub-Category Detail Notes Category Not es Internal Medicine Yefri is 64 years old gentleman who is here today for follow-up after admission at [facility] for worsening kidney function. He was seen [...] Normal Psychiatry Normal OROPHARYNX Normal SINUSES Normal Assistant Unit Forester
--- OUTSIDE RECORDS SUMMARY | 2024-11-10 15:54 | XMS_ITS ---
Author Organization [facility] Address [address] [place] [address] Care Team Providers Care Sock Lining Stitcher Name Role Phone MALORIE SAHU Primary Care Provider REASON FOR VISIT [facility] Records Request Encounters Encounter Location Date Provider Diagnosis [address] [place] [address] 09/28/2024 LUIS ALBERTO ESPANA Plan Of Treatment Next Appt Details Provider Name:LUIS ALBERTO ESPANA , 12/15/2024 08:15:00 AM, [address], [place], [address], Progress Notes * Yefri BYERSDOB:1959 (64 yo M)Acc No.[id number]:09/28/2024 Patient:?Yefri BYERS :1960???Age:64 Y???Sex:Male Address:[place] [address] * true * Date:? Generated for Printi haile/Timbo/eTransmitting on:?11/10/2024 03:54 PM EST
--- OUTSIDE RECORDS SUMMARY | 2024-11-10 15:54 | XMS_ITS | Patient Health Record ---
Author Organization [employer] Address [address] [place] [address] Care Team Providers Care Crane Operator Cab Name Role Phone LUIS ALBERTO ESPANA Primary Care Provider [phone] Lois Quiñonez Unavailable [phone] Allergies No Known Allergies Results Component Value Reference Range Notes Basic Metabolic Panel [id number] Reviewed date:11/06/2024 09:06:36 AM Interpretation: Performing Lab:[facility], [address] [facility], Phone - [phone], Director - MDJodry Notes/Report: Glucose 111 70-99 mg/dL BUN 24 8-27 mg/dL Creatinine 1.56 0.76-1.27 mg/dL eGFR 50 >59 mL/min/1.73 BUN/Creatinine Ratio 15 10-24 Sodium 140 134-144 mmol/L Potassium 4.3 3.5-5.2 mmol/L Chloride 100 96-106 mmol/L Carbon Dioxide, Total 24 20-29 mmol/L Calcium 9.6 8.6-10.2 mg/dL Albumin, 24-Hr Urine-[id number] Reviewed date:09/15/2024 04:30:55 PM Interpretation: Performing Lab:[facility], [address] , [place], Phone - [phone], Director - MDJodry Notes/Report: Albumin, Urine 8.4 Not Estab. ug/mL Albumin,Urine mg/day 26 0-29 mg/day Normal: 0 - 29 Moderately increased: 30 - 300 Severely increased: >300 Comp. Metabolic Panel [id number] Reviewed date:09/14/2024 07:58:10 AM Interpretation: Performing Lab:[facility], [address] [facility], Phone - [phone], Director - Jonathan Notes/Report: Glucose 102 70-99 mg/dL BUN 35 [...] IU/L ALT (SGPT) 12 0-44 IU/L LP+Non-HDL Cholesterol-[id number] Reviewed date:09/14/2024 07:58:17 AM Interpretation: Performing Lab:[facility], [facility], Phone - [phone], Director - Jonathan Notes/Report: Cholesterol, Total 159 100-199 mg/dL Triglycerides 83 0-149 mg/dL HDL Cholesterol 54 >39 mg/dL VLDL Cholesterol Danny 16 5-40 mg/dL LDL Chol Calc ([facility]) 89 0-99 mg/dL Non-HDL Cholesterol 105 0-129 mg/dL Prostate-Specific Ag-[id number] Reviewed date:09/14/2024 07:57:35 AM Interpretation: Performing Lab:[facility], [facility], Phone - [phone], Director - Jonathan Notes/Report: Prostate Specific Ag 7.1 0.0-4.0 ng/mL Woodrow ECLIA methodology. . According to the [place] [employer], Serum PSA should decrease and [...] of malignant disease. Comp. Metabolic Panel [id number] Reviewed date:09/28/2024 08:06:07 AM Interpretation: Performing Lab:[facility], [address], [place], Phone - [phone], Director - Jonathan Notes/Report: Glucose 125 70-99 mg/dL BUN 28 [...] renal failure please send to Dr. Rocky Berad Diagnosis 1 Acute kidney failure , unspecified (N17.9) Referral Organization [facility]erring Provider [facility] Referring Provider Last Name Adrienne Referring Provider Speciality Internal edicine Referred Provider Specialty Nephrology General Notes Faxed to [facility] I called the office to make an appt but the referral has to be reviewed prior to scheduling per Rene Christianson Kayla 09/14/2024 03:55:43 PM > Referral Priority Urgent Reason elevated PSA of 7.1 with renal failure Diagnosis 1 Elevated prostate sp ecific antigen [PSA] (R97.20) Referral Organization [facility] Referring Provider First Name [facility] Referring Provider Last Name Adrienne Referring Provider Speciality Internal edicine Referred Provider Specialty Urology General Notes referral faxed to UrologKaylee squires Katrina 09/17/2024 11:15:37 AM > [...] W/U Status Risk Notes Problem Essential hypertension (10010953) Essential (primary) hypertension (I10) Active confirmed Problem Lower urinary tract symptoms due to benign prostatic hypertrophy (74021612049052) Benign prostatic hyperplasia with lower urinary tract symptoms (N40.1) Active confirmed Problem Essential hypertension (16868015) HTN (hypertension), benign (I10) Active confirmed Vital Signs Heart Rate 65 /min 09/28/2024 Temperature 97.5 degrees Fahrenheit 09/28/2024 Blood pressure diastolic 62 mm Hg 09/28/2024 Oximetry 98 % 09/28/2024 Height 75.75 in 09/28/2024 Blood pressure systolic 128 mm Hg 09/28/2024 Weight 215.5 lbs 09/28/2024 BMI 26.4 kg/m2 09/28/2024 Encounters Encounter Location Date Provider Diagnosis [facility] [address] [place] [address] 12/10/2023 LUIS ALBERTO ESPANA Essential (primary) hypertension I10 ; Encounter for general adult medical examination without abnormal findings Z00.00 and Cardiac murmur, unspecified R01.1 [facility] [address] [place] [address] 09/14/2024 Lois Quiñonez Acute renal disease N28.9 ; HTN (hypertension), benign I10 and Impaired fasting blood sugar R73.01 [facility] [address] [place] [address] 09/28/2024 [facility] Hospital discharge follow-up Z09 ; Essential (primary) hypertension I10 and Benign prostatic hyperplasia with lower urinary tract symptoms N40.1 [facility] [address] [place] [address] 09/17/2024 [facility] [address] [place] [address] 09/17/2024 [facility] [address] [place] [address] 09/28/2024 [facility] Assessments Encounter Date Diagnosis (ICD Code) Assessment [...] patient is aware and will follow through 09/28/2024 Essential (primary) hypertension (ICD-10 - I10) [...] likely secondary to BPH. He saw a seed cleaning manager and urologist. Currently he has a [...] likely secondary to BPH. He saw a seed cleaning manager and urologist. Currently he has a indwelling catheter and is going to follow-up with urology in the next 2-3 days. Hypertension. Blood pressure well controlled on current regimen as mentioned above. Low sodium diet recommended. Avoid NSAIDs and take Tylenol for the pain. 12/10/2023 Essential (primary) hypertension (ICD-10 - I10) [...] and baseline. Eye screening. He sees his assisted living assistant regularly. Dental screening. He sees dentist regularly. Skin screening. No skin issues at this point. Colon cancer screening. He had his colonoscopy done in 2013 and is on 24-xeiv-aaoku. Immunizations. Declines vaccinations. Screening blood work before [...] agrees to use of scribes services. 12/10/2023 Encounter for general adult medical examination [...] and baseline. Eye screening. He sees his assisted living assistant regularly. Dental screening. He sees dentist regularly. Skin screening. No skin issues at this point. Colon cancer screening. He had his colonoscopy done in 2013 and is on 21-[id number]-qygqk. Immunizations. Declines vaccinations. Screening blood work before [...] agrees to use of scribes services. 09/28/2024 Benign prostatic hyperplasia with lower urinary [...] likely secondary to BPH. He saw a seed cleaning manager and urologist. Currently he has a [...] and baseline. Eye screening. He sees his assisted living assistant regularly. Dental screening. He sees dentist regularly. Skin screening. No skin issues at this point. Colon cancer screening. He had his colonoscopy done in 2013 and is on 67-[id number]-[id number]. Immunizations. Declines vaccinations. Screening blood work before [...] 12/10/2023 US Renal and Bladder 09/14/2024 Hemoglobin [id number] 09/14/2024 Future Test Test Name Order Date CBC, No Differential/Platelet-[id number] Next Appt Details Provider Name:SAHUYOLANDA ESPANA , 12/15/2024 08:15:00 AM, [address] [place] [address], [address], Insurance Providers Payer Name Payer Address Payer Phone Subscriber Number Group Number Insured Name Patient Relationship to Insured Coverage Start Date Coverage End Date [facility] [address] [place] [address] [id number] Yefri Rubio Self - patient is the insured Medical (General) History Medical History History ICD Code Personal history of COVID-19
--- OUTSIDE RECORDS SUMMARY | 2024-11-10 15:54 | XMS_ITS ---
Author Organization [facility] Address [address] [address] Care Team Providers Care Home Weatherizing Worker Name Role Phone LUIS ALBERTO ESPANA Primary Care Provider [phone] REASON FOR VISIT referral Encounters Encounter Location Date Provider Diagnosis [facility] [address] [facility] [address] [place] [address] 09/17/2024 LUIS ALBERTO ESPANA Plan Of Treatment Next Appt Details Provider Name:LUIS ALBERTO ESPANA , 12/15/2024 08:15:00 AM, [address] [facility] [address], [place], [address], Progress Notes * Yefri BYERSDOB:1959 (64 yo M)Acc No.[id number]:09/17/2024 Patient:?Yefri BYERS :1960???Age:64 Y???Sex:Male Address:[place] [address] * true * Date:? Generated for Printi haile/Timbo/eTransmitting on:?11/10/2024 03:54 PM EST
--- OUTSIDE RECORDS SUMMARY | 2024-11-10 15:54 | XMS_ITS | Clinical Summary ---
Author Organization [facility] Address [address] [place] [address] Care Team Providers Care Gas Treater Name Role Phone Pcp, No Primary Care Provider Unavailabl e Medications No known medications Active Problems No known active problems Social History Tobacco Use Types Packs/Day Years Used Date Smoking Tobacco: Never Assessed Sex and Gender Information Value Date Recorded Sex Assigned at Not on file Gender Identity Not on file Sexual Orientation Not on file Plan of Treatment Health Maintenance Due Date Last Done Comments Hepatitis C Virus Screening 1960 HIV Screening 1974 DTaP/Tdap/Td Vaccines (1 - Tdap) 1980 Colonoscopy 2006 Pneumococcal Vaccines 50+ (1 of 1 - PCV) 2011 Zoster (Shingles) Vaccine (1 of 2) 2011 Influenza Vaccine 04/30/2024 COVID-19 Vaccine ( - 2023-2 5 season) 2024 RSV Vaccine 60 years and old er and Patients (1 - 1-dose 75+ series) 2036 Hepatitis B Vaccines Aged Out No long er eligible based on patient's age to complete this topic Pneumococcal Vaccine: Pediat lia (0-5 Years) and At-Risk Patients (6 to 49 Years) Aged Out No longer eligible b ased on patient's age to complete this topic Care Teams Gas Treater Relationship Specialty Start Date End Date Pcp, No PCP - General General Medicine 05/18/21
== END 2024-11-10 16:04 | disposition home or self-care (01) ==
PROVIDERS: PCP Hospitalist; Visit Provider Internal Medicine Nephrology
DX: N17.9 Acute kidney failure, unspecified (principal); I10 Essential (primary) hypertension
CPT/HCPCS: 99214

== ENCOUNTER 2024-11-13 10:50 | Outpatient (AMB) | payer OTHER, SELFPAY ==
--- NOTE | 2024-11-13 11:01 | A.OFFVIS_ITS ---
Intake Visit Reasons: Cystoscopy/Voiding Trial Intake Note: Patient is present for Cystoscopy/VOIDING TRAIL Urology Medication:FINASTERIDE Antibiotic Allergy:NONE Blood Thinner:NONE TODAY'S PVR:691ML'S Lot:[id number] Exp:08/03/27 Discharge Door Operator Required: No Allergies No Known Allergies Allergy (Verified 11/13/24 11:04) Medication List - Last Reconciled 11/13/24 by Poli Tomas MD ascorbic acid (vitamin C) 1 g PO DAILY 90 days finasteride 5 mg PO DAILY 90 days furosemide 40 mg PO DAILY hydralazine 25 mg PO BID labetalol 200 mg PO BID methenamine hippurate 1 g PO DAILY 90 days tamsulosin 0.4 mg PO BEDTIME 90 days HPI Comments Details: Yefri is a pleasant male. He is a patient of Dr. Salmeron. He seen for the following urologic conditions - obstructive uropathy - neurogenic bladder Here today for voiding trial and cystoscopy Cystoscopy with grade 1/2 trabeculation and mild trilobar hypertrophy Failed voiding trial with 650 cc residual Recommend CIC for indeterminate amount of time 4 times per day, given mild trilobar hypertrophy would recommend 14 Greenlandic coude catheter to minimize prostatic trauma Start methenamine and vitamin-C for suppression Lower urinary tract symptoms Episode of urinary retention 09/23 Found to have 2 L in his bladder Creatinine elevated to 3.4 with hypertension Imaging showed bilateral hydro uretero nephrosis Responded to Valencia catheter [facility] Medical History (Updated 11/13/24 @ 16:44 by Poli Tomas MD) NATHANIEL (acute kidney injury) Acute retention of urine Hypertension Family History Mother Diabetes type 2 Father Hypertension Social History Household Members: Family Housing: House Do you presently have visiting nurse or other home services: No Alcohol intake: never Patient Tobacco Use Status: Never used Tobacco service: Yes Review of Systems Const Denies chills and Denies fever(s) Card Reports no additional complaints and Denies syncope Resp Denies cough GI Denies abdominal pain and Denies heartburn Reports as per HPI and Denies change in libido Neuro Denies syncope Psych Denies change in libido Endo Denies change in libido Physical Exam Const General: cooperative, healthy appearing, comfortable and no acute distress Orientation/consciousness: patient oriented x3 HEENT Face and sinus: Yes normal facial exam Mouth: moist mucous membranes Neck Neck: Yes normal visual inspection, Yes full ROM and Yes trachea midline Chest Chest palpation & inspection: normal inspection of the chest Resp Effort & Inspection: normal respiratory effort, able to speak in complete sentences and no respiratory distress GI Inspection: Yes normal to inspection Back/Spine/Pelvis Cervical Spine: normal cervical lordosis Thoracic/Lumbar Spine: thoracic and lumbar spine normal to inspection Skin General skin exam: no rashes or lesions noted Neuro General: patient oriented x3, gait normal, tone normal and moves all extremities Extrem General: Yes normal to inspection and Yes capillary refill normal Office Procedures Cystoscopy Consent Discussed risk and benefit or proposed procedure with the patient. Information consent for procedure given to the patient. Discussed technical aspects, risks, benefits and alternatives in full. Addressed all of the patient's questions and concerns regarding the procedure. The patient demonstrated knowledge and understanding. They wish to proceed with this procedure. Preparation The patient was prepped in the usual manner. A cloth hand was present and in the room. Genitalia was prepped with betadine solution in a sterile manner. Lidocaine Jelly 2% was placed into the urethra and 16Fr flexible Olympus cystoscope was inserted into the meatus after adequate lubrication. Procedure Removed 22fr valencia catheter prior to procedure being completed, patient tolerated removal well. Patient was not able to void after cystoscopy procedure. Patient educated on CIC with 14fr coude straight catheters. Patient was able to return demonstrate knowledge. Patient will try catheter options and call [facility] medical for supplies of catheter, signed prescription to be faxed by end of day. Patient was educated to use clean technique as sterile technique not needed for CIC. Emptied 650mls from bladder using 14fr coude straight catheter. Patient understood all information and is agreeable with plan of care at this time Cystoscopy performed using a disposable Urovue digital 16 Greenlandic cystoscope. Meatus uncircumcised Urethra anterior and posterior urethra normal Prostatic Urethra mild trilobar hypertrophy Bladder examination with retroflexion of cystoscope Bladder Orifices normal shape and position Bladder Capacity median Trabeculations grade 1/2 Cellule Formation - Diverticulum Formation - Mucosal Erythema - Bladder Tumor - 53574-Efqzzcszea DISPOSABLE SCOPE URO-G FLEXIBLE SCOPE Procedure code (CPT) selection complete Post Void Residual Post Residual Void Post Void Residual (PVR): 697 [id number] Void Residual by ultrasound Office Meds lidocaine HCl 2 % mucosal jelly in applicator Performing Provider: Poli Tomas MD Performing Location[facility] Administered by: Annmarie Mason RN on 11/13/24 11:37 Dose Route Admin Location Dispensed Lot Number Expiration Date ND Glass Vial Bending Conveyor Feeder 10 mL intra-urethral 10 mL nitrofurantoin monohydrate/macrocrystals 100 mg capsule Performing Provider: Poli Tomas MD Performing Location: [facility] Administered by: Annmarie Mason RN on 11/13/24 11:37 Dose Route Admin Location Dispensed Lot Number Expiration Date ND Glass Vial Bending Conveyor Feeder 100 mg PO 1 cap Results AMB Urinalysis, Automated UA Leukoctes 125 Mike/uL Last Edit by ULISES Neal on 11/13/24 11:36 UA Nitrite Negative Last Edit by ULISES Neal on 11/13/24 11:36 UA Urobilinogen 0.2 mg/dL Last Edit by ULISES Neal on 11/13/24 11:3 6 UA Protein 30 mg/dL Last Edit by ULISES Neal on 11/13/24 11:36 UA pH 6.0 Last Edit by ULISES Neal on 11/13/24 11:36 UA Blood 10 Niko/uL Last Edit by ULISES Neal on 11/13/24 11:36 UA Specific Dane 1.015 Last Edit by ULISES Neal on 11/13/24 11: 36 UA Ketone Negative Last Edit by ULISES Neal on 11/13/24 11:36 UA Bilirubin 0 mg/dL Last Edit by ULISES Neal on 11/13/24 11:36 UA Glucose 0 mg/dL Last Edit by ULISES Neal on 11/13/24 11:36 Results Reviewed Results Reviewed: Laboratory Last Values Urine pH (Auto) 6.0 11/13/24 11:34 Specific Dane (Auto) 1.015 11/13/24 11:34 Urine Protein (Auto) 30 mg/dL 11/13/24 11:34 Glucose (UA)(Auto) 0 mg/dL 11/13/24 11:34 Urine Ketones (Auto) Negative 11/13/24 11:34 Urine Blood (Auto) 10 Niko/uL 11/13/24 11:34 Urine Nitrite (Auto) Negative 11/13/24 11:34 Urine Bilirubin (Auto) 0 mg/dL 11/13/24 11:34 Urine Urobilinogen (Auto) 0.2 mg/dL 11/13/24 11:34 Leukocyte Esterase (Auto) 125 Mike/uL 11/13/24 11:34 Assessment & Plan Assessment & Plan (1) Urinary retention with incomplete bladder emptying: Code(s): R33.9 - Retention of urine, unspecified Category: Medical Plan Initiate tamsulosin Refill finasteride Methenamine with vitamin-C CIC Six week tele visit Orders: Orders AMB Urinalysis Automated Today Z13.9 - Encounter for screening, unspecified AMB Cystoscopy Today N17.9 - Acute kidney failure, unspecified, R33.8 - Other retention of urine Medications: New tamsulosin 0.4 mg PO BEDTIME 90 days 90 caps 1RF N13.8 - Other obstructive and reflux uropathy, N40.1 - Benign prostatic hyperplasia with lower urinary tract symptoms ascorbic acid (vitamin C) 1 g PO DAILY 90 days 90 tabs 1RF N39.0 - Urinary tract infection, site not specified, R33.9 - Retention of urine, unspecified methenamine hippurate 1 g PO DAILY 90 days 90 tabs 1RF N39.0 - Urinary tract infection, site not specified, R33.9 - Retention of urine, unspecified Changed From finasteride 5 mg PO DAILY 90 tabs 0RF To finasteride 5 mg PO DAILY 90 days 90 tabs 1RF Patient Instructions: This note is constructed using voice recognition software. While every effort has been made to ensure accuracy test preparer errors may have been included. Imaging studies, laboratory and physical exam results were discussed and reviewed in detail. No major barriers to patient understanding were identified. An opportunity to ask questions regarding the treatment plan was provided. All questions were answered. The patient expressed understanding and agreement with the above treatment plan. The patient is aware they should contact our office by phone for worsening of their current condition or the appearance of new urologic symptoms. Compliance is encouraged with any medications and followup testing that is ordered. It is a privilege to participate in the urologic care of your patient. If you have any questions or concerns regarding treatment for the above conditions, or other urologic issues, please do not hesitate to contact me. The office telephone contact is [phone]. Sincerely, Dr Poli Tomas MD, [facility] - Urology Compassionate Specialist Care for the Genitourinary System Coding Level of Care Code Est Pt Level 4 (05332) Diagnoses Urinary retention with incomplete bladder emptying R33.9 CPT Codes Cystoscopy - CPT: 66355-Yycifjjxdf ([id number]) Post Residual Void - PVR CPT Code: 23992-Cjpc Void Residual by ultrasound ([id number])
--- OUTSIDE RECORDS SUMMARY | 2024-11-13 11:46 | XMS_ITS ---
Author Organization [facility] Address [address] [address] Care Team Providers Care Hospital Plan Administrator Name Role Phone LUIS ALBERTO ESPANA Primary Care Provider [phone] REASON FOR VISIT referral Encounters Encounter Location Date Provider Diagnosis [facility] [address] [facility] [address] [place] [address] 09/17/2024 LUIS ALBERTO ESPANA Plan Of Treatment Next Appt Details Provider Name:LUIS ALBERTO ESPANA , 12/15/2024 08:15:00 AM, [address], [place], [address], Progress Notes * Yefri BYERSDOB:1959 (64 yo M)Acc No.[id number]:09/17/2024 Patient:?Yefri BYERS :1960???Age:64 Y???Sex:Male Address:[place] [address] * true * Date:? Generated for Printi haile/Timbo/eTransmitting on:?11/13/2024 11:46 AM EST
--- OUTSIDE RECORDS SUMMARY | 2024-11-13 11:46 | XMS_ITS ---
Author Organization [facility] Address [address] [facility] [address] [place] [address] Care Team Providers Care Tapper Hand Name Role Phone MALORIE SAHU Primary Care Provider REASON FOR VISIT [facility] Records Request Encounters Encounter Location Date Provider Diagnosis [address] [place] [address] 09/28/2024 LUIS ALBERTO ESPANA Plan Of Treatment Next Appt Details Provider Name:LUIS ALBERTO ESPANA , 12/15/2024 08:15:00 AM, [address] [facility] [address], [place], [address], Progress Notes * Yefri BYERSDOB:1959 (64 yo M)Acc No.[id number]:09/28/2024 Patient:?Yefri BYERS :1960???Age:64 Y???Sex:Male Address:[place] [address] * true * Date:? Generated for Printi haile/Timbo/eTransmitting on:?11/13/2024 11:46 AM EST
--- OUTSIDE RECORDS SUMMARY | 2024-11-13 11:46 | XMS_ITS ---
Author Organization [facility] Address [address] [facility] [address] [place] [address] Care Team Providers Care Plater Printed Circuit Board Panels Name Role Phone LUIS ALBERTO ESPANA Primary Care Provider [phone] Allergies No Known Allergies REASON FOR VISIT [...] tract symptoms due to benign prostatic hypertrophy ([id number]) Benign prostatic hyperplasia with lower urinary tract symptoms (N40.1) Active confirmed Vital Signs Temperature 97.5 degrees Fahrenheit 09/28/20 24 Oximetry 98 % 09/28/2024 Heart Rate 65 /min 09/28/2024 Blood pressure systolic 128 mm Hg 09/28/20 24 Blood pressure diastolic 62 mm Hg 024 Weight 215.5 lbs 09/28/2024 BMI 26.4 kg/m2 09/28/2024 Height 75.75 in 09/28/2024 Encounters Encounter Location Date Provider Diagnosis [facility] [address] [facility] [address] [place] [address] 09/28/2024 [facility] discharge follow-up Z09 ; Essential (primary) hypertension [...] likely secondary to BPH. He saw a clinical editor and urologist. Currently he has a indwelling [...] likely secondary to BPH. He saw a clinical editor and urologist. Currently he has a indwelling [...] likely secondary to BPH. He saw a clinical editor and urologist. Currently he has a indwelling catheter and is going to follow-up with urology in the next 2-3 days. Hypertension. Blood pressure well controlled on current regimen as mentioned above. Low sodium diet recommended. Avoid NSAIDs and take Tylenol for the pain. Plan Of Treatment Future Test Test Name Order Date CBC, No Differential/Platelet-[id number] Next Appt Details Follow Up: 3 Months, Reason: Provider Name:LUIS ALBERTO ESPANA , 12/15/2024 08:15:00 AM, [address] [place] [address], [place], [address], Progress Notes * Yefri BYERSDOB:1959 (64 yo M)Acc No.[id number]:09/28/2024 Progress Notes Patient:?Yefri BYERS Provider:?LUIS ALBERTO ESPANA MD :1960???Age:64 Y???Sex:Male Chucho e:09/28/2024 Address:[address] [place], [place] [address] Subjective: * Chief Complaints: * ???2 week follow up BP * HPI: ???Internal Medicine:? Yefri is 64 years old gentleman who is here today for follow-up after admission at [facility] for worsening kidney function.? He was [...] in. * ???Past Orders: ???Lab:Comp. Metabolic Panel ([id number] (Order Date - 09/14/2024) (Collection Date & [...] >59 - mL/min/1. 73 ???Lab:Albumin, 24-Hr Urine- [id number] (Order Date - 09/14/2024) (Collection Date & Time - 09/14/2024 07:00 AM) ? Value Reference Range ?Albumin, Urine 8.4 Not E stab. - ug/mL ?Albumin,Urine mg/day 26 0-29 - mg/day ???Lab:Prostate-Specific Ag- [id number] (Order Date - 09/11/2024) (Collection Date & Time - 09/11/2024 07:23 AM) ? Value Reference Range ?Prostate Specific Ag 7.1 H 0.0-4.0 - ng/mL ???Lab:LP+Non-HDL Cholestero [id number] (Order Date - 09/11/2024) (Collection Date & Time - 09/11/2024 07:23 AM) ? Value Reference Range ?Cholesterol, Total 159 1 00-199 - mg/dL ?Triglycerides 83 0-149 - mg/dL ?HDL Cholesterol 54 >39 - mg/dL ?VLDL Cholesterol Danny 16 5-40 - mg/dL ?LDL Chol Calc ([facility]) 89 0-99 - mg/dL ?Non-HDL Cholesterol 105 0-129 - mg/dL ???Lab:Comp. 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 .? Assessment: * Assessment: 1.?Hospital discharge follow [...] likely secondary to BPH.? He saw a clinical editor and urologist.? Currently he has a indwelling catheter and is going to follow-up with urology in the next 2-3 days. Hypertension.? Blood pressure well controlled on current regimen as mentioned above.? Low sodium diet recommended.? Avoid NSAIDs and take Tylenol for the pain. Plan: * Treatment: * Procedure Codes:?3074F SYST BP LT 130 MM FM2526F DIAST BP < 80 MM HG * Follow Up:?3 Months * * Sign off status: Completed true * Provider:?LUIS ALBERTO ESPANA MD Date:?09/28 Generated for Keila be/Timbo/Clarenceitting on:?11/13/2024 11:46 AM EST History and Physical Notes * HPI (History of Present Illness) Category Sub-Category Detail Notes Category Not es Internal Medicine Yefri is 64 years old gentleman who is here today for follow-up after admission at [facility] for worsening kidney function. 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
--- OUTSIDE RECORDS SUMMARY | 2024-11-13 11:46 | XMS_ITS | Clinical Summary ---
Author Organization [facility] Address [address] [place] [address] Care Team Providers Care Financial Assistance Specialist Name Role Phone Unavailable Primary Care Provider [...] Plan of Treatment Not on file Insurance [employer]
--- OUTSIDE RECORDS SUMMARY | 2024-11-13 11:46 | XMS_ITS | Patient Health Record ---
Author Organization [facility] Address [address] [place] [address] Care Team Providers Care Bottle House Cleaners Supervisor Name Role Phone LUIS ALBERTO ESPANA Primary Care Provider [phone] Lois Quiñonez Unavailable [phone] Allergies No Known Allergies Results Component Value Reference Range Notes Basic Metabolic Panel [id number] Reviewed date:11/06/2024 09:06:36 AM Interpretation: Performing Lab:[facility], [address] [facility], Phone - [phone], Director - MDJodry Notes/Report: Glucose 111 70-99 mg/dL BUN 24 8-27 mg/dL Creatinine 1.56 0.76-1.27 mg/dL eGFR 50 >59 mL/min/1.73 BUN/Creatinine Ratio 15 10-24 Sodium 140 134-144 mmol/L Potassium 4.3 3.5-5.2 mmol/L Chloride 100 96-106 mmol/L Carbon Dioxide, Total 24 20-29 mmol/L Calcium 9.6 8.6-10.2 mg/dL Comp. Metabolic Panel ([id number] Reviewed date:09/28/2024 08:06:07 AM Interpretation: Performing Lab:[facility], [address] [facility], [place], Phone - [phone], Director - MDJodry Notes/Report: Glucose 125 70-99 mg/dL BUN 28 [...] 44-121 IU/L AST (SGOT) 16 0-40 IU/L Albumin, 24-Hr Urine-[id number] Reviewed date:09/15/2024 04:30:55 PM Interpretation: Performing Lab:[facility] [place], [address] [facility] [place], Phone - [phone], Director - MDJodry Notes/Report: Albumin, Urine 8.4 Not Estab. ug/mL Albumin,Urine mg/day 26 0-29 mg/day Normal: 0 - 29 Moderately increased: 30 - 300 Severely increased: >300 Comp. Metabolic Panel (14)-[id number] Reviewed date:09/14/2024 07:58:10 AM Interpretation: Performing Lab:[facility] [place], [address] [facility] [place], Phone - [phone], Director - MDJodry Notes/Report: Glucose 102 70-99 [...] IU/L ALT (SGPT) 12 0-44 IU/L LP+Non-HDL Cholesterol-92376 5 Reviewed date:09/14/2024 07:58:17 AM Interpretation: Performing Lab:[facility] [place], [address], [place], Phone - [phone], Director - Jonathan Notes/Report: Cholesterol, Total 159 100-199 mg/dL Triglycerides 83 0-149 mg/dL HDL Cholesterol 54 >39 mg/dL VLDL Cholesterol Danny 16 5-40 mg/dL LDL Chol Calc (NIH) 89 0-99 mg/dL Non-HDL Cholesterol 105 0-129 mg/dL Prostate-Specific Ag-[id number] Reviewed date:09/14/2024 07:57:35 AM Interpretation: Performing Lab:[facility] [place], [address], [place], Phone - [phone], Director - Jonathan Notes/Report: Prostate Specific Ag 7.1 0.0-4.0 ng/mL Woodrow ECLIA methodology. . According to the [employer], Serum PSA should decrease and [...] kidney failure , unspecified (N17.9) Referral Organization [facility] Referring Provider First Name Lois Referring Provider Last Name Adrienne Referring Provider Speciality Internal edicine Referred Provider Specialty Nephrology General Notes Faxed to [facility] [place]. I called the office to make an appt but the referral has to be reviewed prior to scheduling per Rene Christianson Kayla 09/14/2024 03:55:43 PM > Referral Priority Urgent Reason elevated PSA of 7.1 with renal failure Diagnosis 1 Elevated prostate sp ecific antigen [PSA] (R97.20) Referral Organization [facility] Referring Provider [facility] Referring Provider Last Name Adrienne Referring Provider Speciality Internal edicine Referred Provider Specialty Urology General Notes referral faxed to [facility] [place] Katrina 09/17/2024 11:15:37 AM > Referral Priority [...] W/U Status Risk Notes Problem Essential hypertension (45824047) Essential (primary) hypertension (I10) Active confirmed Problem Lower urinary tract symptoms due to benign prostatic hypertrophy (45490252045581) Benign prostatic hyperplasia with lower urinary tract symptoms (N40.1) Active confirmed Problem Essential hypertension (07789638) HTN (hypertension), benign (I10) Active confirmed Vital Signs Heart Rate 65 /min 09/28/2024 Temperature 97.5 degrees Fahrenheit 09/28/2024 Blood pressure diastolic 62 mm Hg 09/28/2024 Oximetry 98 % 09/28/2024 Height 75.75 in 09/28/2024 Blood pressure systolic 128 mm Hg 09/28/2024 Weight 215.5 lbs 09/28/2024 BMI 26.4 kg/m2 09/28/2024 Encounters Encounter Location Date Provider Diagnosis [facility] [address] [place] [address] 12/10/2023 LUIS ALBERTO ESPANA Essential (primary) hypertension I10 ; Encounter for general adult medical examination without abnormal findings Z00.00 and Cardiac murmur, unspecified R01.1 [facility] [address] [place] [address] 09/14/2024 Lois Quiñonez Acute renal disease N28.9 ; HTN (hypertension), benign I10 and Impaired fasting blood sugar R73.01 [facility] [address] [place] [address] 09/28/2024 [facility] Hospital discharge follow-up Z09 ; Essential (primary) hypertension I10 and Benign prostatic hyperplasia with lower urinary tract symptoms N40.1 [facility] [address] [place] [address] 09/17/2024 [facility] [address] [place] [address] 09/17/2024 [facility] [address] [place] [address] 09/28/2024 [facility] Assessments Encounter Date Diagnosis (ICD Code) Assessment [...] and baseline. Eye screening. He sees his solder making supervisor regularly. Dental screening. He sees dentist regularly. Skin screening. No skin issues at this point. Colon cancer screening. He had his colonoscopy done in 2013 and is on 55-[id number]-[id number]. Immunizations. Declines vaccinations. Screening blood work before next appointment. General health concerns discussed with patient. Scribe services used to formulate this note under HIPAA compliance and under [place] law mandated for scribe services. Patient aware [...] and baseline. Eye screening. He sees his solder making supervisor regularly. Dental screening. He sees dentist regularly. Skin screening. No skin issues at this point. Colon cancer screening. He had his colonoscopy done in 2013 and is on 71-cytk-mnuos. Immunizations. Declines vaccinations. Screening blood work before next appointment. General health concerns discussed with patient. Scribe services used to formulate this note under HIPAA compliance and under [place] law mandated for scribe services. Patient aware [...] likely secondary to BPH. He saw a mill crane operator and urologist. Currently he has a indwelling [...] likely secondary to BPH. He saw a mill crane operator and urologist. Currently he has a indwelling [...] likely secondary to BPH. He saw a mill crane operator and urologist. Currently he has a indwelling [...] and baseline. Eye screening. He sees his solder making supervisor regularly. Dental screening. He sees dentist regularly. Skin screening. No skin issues at this point. Colon cancer screening. He had his colonoscopy done in 2013 and is on 12-[id number]-pxezs. Immunizations. Declines vaccinations. Screening blood work before next appointment. General health concerns discussed with patient. Scribe services used to formulate this note under HIPAA compliance and under [place] law mandated for scribe services. Patient aware of service. Verbal consent and written consent taken from the patient. Patient understands and verbalizes understanding of the scribes services and all questions answered regarding scribes services. Patient agrees to use of scribes services. Plan Of Treatment Pending Test Test Name Order Date Echocardiogram 12/10/2023 US Renal and Bladder 09/14/2024 Hemoglobin [id number] 09/14/2024 Future Test Test Name Order Date CBC, No Differential/Platelet-[id number] Next Appt Details Provider Name:SAHUYOLANDA ESPANA , 12/15/2024 08:15:00 AM, [address] [place] [address], [phone], Insurance Providers Payer Name Payer Address Payer Phone Subscriber Number Group Number Insured Name Patient Relationship to Insured Coverage Start Date Coverage End Date [facility] [address] [place] [phone] [id number] Yefri Rubio Self - patient is the insured Medical (General) History Medical History History ICD Code Personal history of COVID-19
--- OUTSIDE RECORDS SUMMARY | 2024-11-13 11:46 | XMS_ITS | Clinical Summary ---
Author Organization [facility] Address [address] [place] [address] Care Team Providers Care Clinical Psychology Teacher Name Role Phone Pcp, No Primary Care [...] age to complete this topic Care Teams Clinical Psychology Teacher Relationship Specialty Start Date End Date Pcp, No PCP - General General Medicine 05/18/21
== END 2024-11-13 12:27 | disposition home or self-care (01) ==
PROVIDERS: PCP Hospitalist; Visit Provider Urology
DX: R33.9 Retention of urine, unspecified (principal); N17.9 Acute kidney failure, unspecified; R33.8 Other retention of urine; Z13.9 Encounter for screening, unspecified
CPT/HCPCS: 52000; 99214

== ENCOUNTER → 2024-11-13 10:50 | Outpatient (BNVA) | payer OTHER, SELFPAY | PROVIDERS: PCP Hospitalist; Visit Provider Urology | DX: N40.1 Benign prostatic hyperplasia with lower urinary tract symptoms (principal); N13.8 Other obstructive and reflux uropathy; R33.8 Other retention of urine; N39.0 Urinary tract infection, site not specified | CPT/HCPCS: 51798; 52000; 81003 ==

== ENCOUNTER 2024-12-24 13:07 | Outpatient (AMB) | payer OTHER, SELFPAY ==
--- NOTE | 2024-12-24 13:07 | A.OFFVIS_ITS ---
Intake Visit Reasons: 6 weeks follow up Intake Note: Patient is present for 6W F/U Urology Medication:VITAMIN C,METHANAMINE,TAMSULOSIN,FINASTERIDE Antibiotic Allergy:NONE Blood Thinner:NONE Maintenance Analyst Required: No Allergies No Known Allergies Allergy (Verified 12/24/24 13:08) HPI Comments Details: Yefri is a pleasant male. He is a patient of Dr. Salmeron. He seen for the following urologic conditions - obstructive uropathy - neurogenic bladder Telemedicine Evaluation 15 min Consultation DoxSealed Ivan Video Continues with self catheterization Minimal issues Continue Discussed urodynamics Prior Cystoscopy with grade 1/2 trabeculation and mild trilobar hypertrophy Failed voiding trial with 650 cc residual Recommend CIC for indeterminate amount of time 4 times per day, given mild trilobar hypertrophy would recommend 14 Belizean coude catheter to minimize prostatic trauma Continue methenamine and vitamin-C for suppression Lower urinary tract symptoms Episode of urinary retention 09/23 Found to have 2 L in his bladder Creatinine elevated to 3.4 with hypertension Imaging showed bilateral hydro uretero nephrosis Responded to Tovar catheter [facility] Medical History (Updated 11/13/24 @ 16:44 by Poli Tomas MD) NATHANIEL (acute kidney injury) Acute retention of urine Hypertension Family History Mother Diabetes type 2 Father Hypertension Social History Household Members: Family Housing: House Do you presently have visiting nurse or other home services: No Alcohol intake: never Patient Tobacco Use Status: Never used Tobacco service: Yes Review of Systems Const All systems reviewed & are unremarkable except as noted in HPI and below Reports no additional complaints Resp Reports no additional complaints GI Reports no additional complaints Reports as per HPI Musc Reports no additional complaints Physical Exam Telemedicine evaluation Appropriate responses Regular breathing rate and rhythm HEENT Head: Yes normal to inspection Ears: hearing grossly normal bilaterally Eyes General: appearance normal, both eyes and all related structures Neck Neck: Yes normal visual inspection Chest Chest palpation & inspection: normal inspection of the chest Resp Effort & Inspection: normal respiratory effort and able to speak in complete sentences Telehealth Telehealth Location of provider rendering services: practice address Location of patient: address on file Patient Identification confirmed using: Name, : Yes Telehealth method: voice only Patient verbally consented to treatment: Yes Patient verbally consented to billing insurance company: Yes Patient informed of any privacy concerns related to visit: Yes Assessment & Plan Assessment & Plan (1) Urinary retention with incomplete bladder emptying: Code(s): R33.9 - Retention of urine, unspecified Category: Medical Plan Trial bethanechol Continue CIC Medications: New bethanechol chloride 50 mg PO BID 180 tabs 1RF 90 days R33.9 - Retention of urine, unspecified Patient Instructions: This note is constructed using voice recognition software. While every effort has been made to ensure accuracy printed circuit board panels deburrer errors may have been included. Imaging studies, laboratory and physical exam results were discussed and review ed in detail. No major barriers to patient understanding were identified. An opportunity to ask questions regarding the treatment plan was provided. All questions were answered. The patient expressed understanding and agreement with the above treatment plan. The patient is aware they should contact our office by phone for worsening of their current condition or the appearance of new urologic symptoms. Compliance is encouraged with any medications and followup testing that is ordered. It is a privilege to participate in the urologic care of your patient. If you have any questions or concerns regarding treatment for the above conditions, or other urologic issues, please do not hesitate to contact me. The office telephone contact is [phone]. Sincerely, Dr Poli Tomas MD, [facility] - Urology Compassionate Specialist Care for the Genitourinary System Coding Level of Care Code Tele Est Pt Level 3 (69990) Complex EM visit Add On G2211 Diagnoses Urinary retention with incomplete bladder emptying R33.9
== END 2024-12-24 15:01 | disposition home or self-care (01) ==
LOC: HO.HUSH 13:07
PROVIDERS: PCP Hospitalist; Visit Provider Urology
DX: R33.9 Retention of urine, unspecified (principal)
CPT/HCPCS: 99213

== ENCOUNTER → 2024-12-24 13:07 | Outpatient (BNVA) | payer OTHER, SELFPAY | PROVIDERS: PCP Hospitalist; Visit Provider Urology ==

== ENCOUNTER 2025-03-19 08:50 | Outpatient (REF) | payer OTHER, SELFPAY ==
--- OUTSIDE RECORDS SUMMARY | 2025-03-22 09:18 | XMS_ITS | Clinical Summary ---
Author Organization [facility] Address [address] [place] [address] Care Team Providers Care Auditing Clerk Name Role Phone Unavailable Primary Care Provider [...] Active Problems No known active problems Immunizations Immunization Administration Dates Next Due INFLUENZA, SEASONAL, INJECTABLE [...] 80 06/12/2013 11:24 AM EDT Temperature 36.6 C (97.9 F) 06/12/2013 11:24 AM EDT Respiratory Rate 20 06/12/2013 11:24 AM EDT Oxygen Saturation - - Inhaled Oxygen Concentration - - Weight 97.1 kg (214 lb) 06/12/2013 11:24 AM EDT Height 193 cm (6' 4 ) 06/12/2013 11:24 AM EDT Body Mass Index 26.05 06/12/2013 11:24 AM EDT Plan of Treatment Not on file Insurance [id number] & [employer]
== END 2025-03-19 08:51 | disposition home or self-care (01) ==
LOC: HO.HOSX 08:50
PROVIDERS: Visit Provider Physician Assistant
DX: Z13.89 Encounter for screening for other disorder (principal)

== ENCOUNTER 2025-04-08 14:53 | Outpatient (AMB) | payer OTHER, SELFPAY ==
--- OUTSIDE RECORDS SUMMARY | 2025-04-08 14:55 | XMS_ITS | Clinical Summary ---
Author Organization [facility] Address [address] [place] [address] Care Team Providers Care Proofing Machine Operator Name Role Phone Unavailable Primary Care Provider [...] Plan of Treatment Not on file Insurance [employer]
--- OUTSIDE RECORDS SUMMARY | 2025-04-08 14:56 | XMS_ITS | Clinical Summary ---
Author Organization [facility] Address [address] [place] [address] Care Team Providers Care Embroidery Machine Operator Name Role Phone Pcp, No Primary Care Provider Unavailabl e Medications No known medications Active Problems No known active problems Social History Tobacco Use Types Packs/Day Years Used Date Smoking Tobacco: Never Assessed Sex and Gender Information Value Date Recorded Sex Assigned at Not on file Legal Sex Male 2:12 PM EDT Gender Identity Not on file Sexual Orientation Not on file Plan of Treatment Health Maintenance Due Date Last Done Comments Hepatitis C Virus Screening 1961 HIV Screening 1974 DTaP/Tdap/Td Vaccines (1 - Tdap) 1980 Colonoscopy 2006 Pneumococcal Vaccines 50+ (1 of 1 - PCV) 2011 Zoster (Shingles) Vaccine (1 of 2) 2011 COVID-19 Vaccine ( - 2023-2 5 season) 2024 Influenza Vaccine 04/30/2025 RSV Vaccine 60 years and old er and Patients (1 - 1-dose 75+ series) 2036 Hepatitis B Vaccines Aged Out No long er eligible based on patient's age to complete this topic Insurance [facility] Care Teams Embroidery Machine Operator Relationship Specialty Start Date End Date Pcp, Alondra PCP - General General Medicine 05/18/21
--- OUTSIDE RECORDS SUMMARY | 2025-04-08 14:56 | XMS_ITS | Patient Health Record ---
Author Organization [facility] Address [address] [facility] [address] [facility] [place] [address] Care Team Providers Care Research Tech Name Role Phone LUIS ALBERTO ESPANA Primary Care Provider [phone] Lois Quiñonez Unavailable [phone] Conrado Bales Unavailable [phone] Allergies No Known Allergies Results Component Value Reference Range Notes CBC, Platelet, No Differenti [id number] Reviewed date:12/20/2024 11:34:30 AM Interpretation: Performing Lab:[facility], [address] [facility], Phone - [phone], Director - MDJodry Notes/Report: WBC 7.1 3.4-10.8 x10E3/uL RBC 4.71 4.14-5.80 x10E6/uL Hemoglobin 14.1 13.0-17.7 g/dL Hematocrit 42.8 37.5-51.0 % MCV 91 79-97 fL MCH 29.9 26.6-33.0 pg MCHC 32.9 31.5-35.7 g/dL RDW 13.0 11.6-15.4 % Platelets 208 150-450 x10E3/uL Hemoglobin [id number] Reviewed date:12/20/2024 11:34:12 AM Interpretation: Performing Lab:[facility], [address] [facility], [place], Phone - [phone], Director - MDJodry Notes/Report: Hemoglobin A1c 5.9 4.8-5.6 % . Prediabetes: 5.7 - 6.4 Diabetes: >6.4 Glycemic control for adults with diabetes: <7.0 Basic Metabolic Panel (8)-[id number] Reviewed date:11/06/2024 09:06:36 AM Interpretation: Performing Lab:[facility], [address] [place] [address], Phone - [phone], Director - Jonathan Notes/Report: Glucose 111 70-99 mg/dL BUN 24 8-27 mg/dL Creatinine 1.56 0.76-1.27 mg/dL eGFR 50 >59 mL/min/1.73 BUN/Creatinine Ratio 15 10-24 Sodium 140 134-144 mmol/L Potassium 4.3 3.5-5.2 mmol/L Chloride 100 96-106 mmol/L Carbon Dioxide, Total 24 20-29 mmol/L Calcium 9.6 8.6-10.2 mg/dL Albumin, 24-Hr [id number] Reviewed date:09/15/2024 04:30:55 PM Interpretation: Performing Lab:[facility], [address] [place] [address], Phone - [phone], Director - Jonathan Notes/Report: Albumin, Urine 8.4 Not Estab. ug/mL Albumin,Urine mg/day 26 0-29 mg/day Normal: 0 - 29 Moderately increased: 30 - 300 Severely increased: >300 Comp. Metabolic Panel (14)-3 [id number] Reviewed date:09/14/2024 07:58:10 AM Interpretation: Performing Lab:[facility], [address] [place] [address], Phone - [phone], Director - Jonathan Notes/Report: Glucose 102 70-99 [...] IU/L ALT (SGPT) 12 0-44 IU/L LP+Non-HDL Cholesterol-[id number] 5 Reviewed date:09/14/2024 07:58:17 AM Interpretation: Performing Lab:[facility], [address] [facility], Phone - [phone], Director - [facility] Notes/Report: Cholesterol, Total 159 100-199 mg/dL Triglycerides 83 0-149 mg/dL HDL Cholesterol 54 >39 mg/dL VLDL Cholesterol Danny 16 5-40 mg/dL LDL Chol Calc (NIH) 89 0-99 mg/dL Non-HDL Cholesterol 105 0-129 mg/dL Prostate-Specific Ag-[id number] Reviewed date:09/14/2024 07:57:35 AM Interpretation: Performing Lab:[facility], [address] [place] [address], Phone - [phone], Director - [facility] Notes/Report: Prostate Specific Ag 7.1 0.0-4.0 ng/mL . According to the [place] [employer], Serum PSA should decrease and [...] the presence or absence of malignant disease. [facility] ECLIA methodology. PSA Total (Reflex To Free)-4 [id number] Reviewed date:12/13/2024 10:34:32 AM Interpretation: Performing Lab:[facility], [address] [place] [address], Phone - [phone], Director - shruti Notes/Report: Prostate Specific Ag 4.1 0.0-4.0 ng/mL [place]row ECLIA methodology. . According to the [place] [employer], Serum PSA should decrease and [...] the presence or absence of malignant disease. Reflex Criteria The percent free PSA is performed on a reflex basis only when the total PSA is between 4.0 and 10.0 ng/mL. PSA, Free 0.56 N/A ng/mL [facility]row ECLIA met hodology. % Free PSA 13.7 The table below lists the probability of prostate cancer for men with non-suspicious JACQUELIN results and total PSA between 4 and 10 ng/mL, by patient age (Svetlana et al, MARITA 1998, 279:1542). % Free PSA 50-64 yr 65-75 yr 0.00-10.00% 56% 55% 10.01-15.00% 24% 35% 15.01-20.00% 17% 23% 20.01-25.00% 10% 20% >25.00% 5% 9% Please note: Svetlana et al did not make specific recommendations regarding the use of percent free PSA for any other population of men. Comp. Metabolic Panel (13)-3 [id number] Reviewed date:01/18/2025 07:23:26 AM Interpretation: Performing Lab:[facility], [address] [facility], [place], Phone - [phone], Director - Jonathan Notes/Report: Glucose 113 70-99 mg/dL BUN 26 8-27 mg/dL Creatinine 1.49 0.76-1.27 mg/dL eGFR 52 >59 mL/min/1.73 BUN/Creatinine Ratio 17 10-24 Sodium 140 134-144 mmol/L Potassium 4.5 3.5-5.2 mmol/L Chloride 102 96-106 mmol/L Carbon Dioxide, Total 22 20-29 mmol/L Calcium 9.6 8.6-10.2 mg/dL Protein, Total 6.7 6.0-8.5 g/dL Albumin 4.5 3.9-4.9 g/dL Globulin, Total 2.2 1.5-4.5 g/dL Bilirubin, Total 0.3 0.0-1.2 mg/dL Alkaline Phosphatase 105 44-121 IU/L AST (SGOT) 28 0-40 IU/L Lipid Panel With LDL/HDL Rat [id number] Reviewed date:01/18/2025 07:23:05 AM Interpretation: Performing Lab:[facility], [address] [facility], [place], Phone - [phone], Director - Jonathan Notes/Report: Cholesterol, Total 169 100-199 mg/dL Triglycerides 104 0-149 mg/dL HDL Cholesterol 53 >39 mg/dL VLDL Cholesterol Danny 19 5-40 mg/dL LDL Chol Calc ([facility]) 97 0-99 mg/dL LDL/HDL Ratio 1.8 0.0-3.6 ratio LDL/HDL Ratio Men Women 1/2 Avg.Risk 1.0 1.5 Avg.Risk 3.6 3.2 2X Avg.Risk 6.2 5.0 3X Avg.Risk 8.0 6.1 Albumin/Creatinine Ratio,Uri [id number] Reviewed date:01/18/2025 07:23:14 AM Interpretation: Performing Lab:[facility], [address] [facility], Phone - [phone], Director - MDMelissay Notes/Report: Creatinine, Urine TNP Test not performed. Patient was unable to provide a self-collected specimen for the requested testing. The following test(s) were not performed: Albumin, Urine TNP Test not perf ormed Request Problem TNP Test not performed. Patient was unable to provide a self-collected specimen for the requested testing. The following test(s) were not performed: TEST: [id number] Albumin/Creatinine Ratio,Urine Comp. Metabolic Panel (13)-3 [id number] Reviewed date:09/28/2024 08:06:07 AM Interpretation: Performing Lab:[facility], [address] [facility], [place], Phone - [phone], Director - Jonathan Notes/Report: Glucose 125 70-99 [...] renal failure please send to Dr. Rocky Dwyer Diagnosis 1 Acute kidney failure , unspecified (N17.9) Referral Organization [facility] Referring Provider First Name Lois Referring Provider Last Name Olamide Referring Provider Speciality Internal edicine Referred Provider Specialty Nephrology General Notes Faxed to [facility]. I called the office to make an appt but the referral has to be reviewed prior to scheduling per Rene Christianson Kayla 09/14/2024 03:55:43 PM > Referral Priority Urgent Reason elevated PSA of 7.1 with renal failure Diagnosis 1 Elevated prostate sp ecific antigen [PSA] (R97.20) Referral Organization [facility] Referring Provider First Name Lois Referring Provider Last Name Olamide Referring Provider Speciality Internal edicine Referred Provider Specialty Urology General Notes referral faxed to Urology[facility] Katrina 09/17/2024 11:15:37 AM > Referral Priority Routine Reason advanced left hip dinorah int osteoarthritis, Please evaluate and treat Diagnosis 1 Unilateral primary o steoarthritis, left hip (M16.12) Referral Organization [facility] Referring Provider First Name LUIS ALBERTO Referring Provider Last Name MALORIE Referring Provider Speciality Internal edicine Referred Provider Specialty Orthopedic S urgery General Notes Please call the [facility] to schedule the appointment, Kelly French 01/04/2025 04:25:48 PM > Referral Priority Routine Reason left hip pain plea se evaluate and treat Diagnosis 1 Pain in left hip (M2 5.552) Referral Organization [facility] Referring Provider First Name LUIS ALBERTO Referring Provider Last Name MALORIE Referring Provider Speciality Internal edicine Referred Provider Specialty Orthopedic S urgery Referral Priority Routine Medications Medication SIG (Take, Route, Frequency, Duration) Notes Start Date End Date Status Labetalol HCl 200 MG 1 tablet Orally Twice a day Active hydrALAZINE HCl 25 MG 1 tablet with food Orally Twice a day Active amLODIPine Besylate 5 MG 1 tablet Orally Once a day; Duration: 30 days 09/14/2024 Active Finasteride 5 MG 1 tablet Orally Once a day Active Doxazosin Mesylate 2 MG 2 tablets Orally At bedtime Active Immunizations Vaccine Route Administration Date Status Comme nts COVID Unknown 12/14/2020 Administered COVID Unknown 01/04/2021 Administered TDAP Unknown 03/19/2011 Administered Social History Tobacco Use: Social History [...] Problem Status W/U Status Risk Notes Problem Hyperlipidemia (26819415) Hyperlipidemia, unspecified (E78.5) Active confirmed Problem Essential hypertension (83642147) Essential (primary) hypertension (I10) Active confirmed Problem Primary generalised osteoarthritis (380595881) Primary generalized (osteo)arthritis (M15.0) Active confirmed Problem Localized, primary osteoarthritis of the pelvic region and thigh (936725615) Unilateral primary osteoarthritis, left hip (M16.12) Active confirmed Problem Lower urinary tract symptoms due to benign prostatic hypertrophy (21293256834082) Benign prostatic hyperplasia with lower urinary tract symptoms (N40.1) Active confirmed Problem Chronic kidney disease stage 3A (disorder) (404501945) Chronic kidney disease, stage 3a (N18.31) Active confirmed Problem Essential hypertension (11817389) HTN (hypertension), benign (I10) Active confirmed Vital Signs Heart Rate 56 /min 12/23/2024 Temperature 97.6 degrees Fahrenheit 12/23/2024 Oximetry 99 % 12/23/2024 Blood pressure diastolic 82 mm Hg 12/23/2024 Height 75.75 in 12/23/2024 Blood pressure systolic 140 mm Hg 12/23/2024 Weight 219.6 lbs 12/23/2024 BMI 26.9 kg/m2 12/23/2024 Encounters Encounter Location Date Provider Diagnosis [facility] [address] [facility] [address] [place] [address] 09/14/2024 [facility] Alam Acute renal disease N28.9 ; HTN (hypertension), benign I10 and Impaired fasting blood sugar R73.01 [facility] [address] [facility] [address] [place] [address] 09/28/2024 [facility] discharge follow-up Z09 ; Essential (primary) hypertension I10 and Benign prostatic hyperplasia with lower urinary tract symptoms N40.1 [facility] [address] [facility] [address] [place] [address] 12/23/2024 Lois Adrienneamni HTN (hypertension), benign I10 ; Annual physical exam Z00.00 ; Impaired fasting glucose R73.01 ; Chronic kidney disease, stage 3a N18.31 ; Primary generalized (osteo)arthritis M15.0 and Hyperlipidemia, unspecified E78.5 [facility] [address] [facility] [address] [place] [address] 09/17/2024 [facility] [address] [facility] [address] [place] [address] 09/17/2024 [facility] [address] [facility] [address] [place] [address] 09/28/[address] [place] [address] 12/10/2024 [facility] Elevated prostate specific antigen [PSA] R97.20 [facility] [address] [facility] [address] [place] [address] 12/23/2024 Lois Quiñonez [address] [place] [address] 12/23/2024 Lois Quiñonez Encounter for screening for malignant neoplasm of colon Z12.[address] [place] [address] 01/04/2025 Conrado Hortonum Unilateral primary osteoarthritis, left hip M16.12 [facility] [address] [facility] [address] [place] [address] 12/15/[address] [place] [address] 12/16/2024 [facility] [address] [facility] [address] [place] [address] 01/31/[address] [place] [address] 02/05/2025 [facility] Assessments Encounter Date Diagnosis (ICD Code) [...] been using NSAID therapy Nephrology Dr. Rocky dwyer has been informed and office referral will [...] been using NSAID therapy Nephrology Dr. Rocky dwyer has been informed and office referral will [...] likely secondary to BPH. He saw a lead web application developer and urologist. Currently he has a indwelling [...] likely secondary to BPH. He saw a lead web application developer and urologist. Currently he has a indwelling catheter and is going to follow-up with urology in the next 2-3 days. Hypertension. Blood pressure well controlled on current regimen as mentioned above. Low sodium diet recommended. Avoid NSAIDs and take Tylenol for the pain. 12/10/2024 Elevated prostate specific antigen [PSA] (ICD-10 - R97.20) 12/23/2024 Annual physical exam (ICD-10 - Z00.00) 64-year-old gentleman with history of hypertension and impaired fasting glucose, chronic disease stage III benign prostate enlargement and recurrent urinary retention using self-catheterization is here for a complete physical exam. Hypertension blood pressure is 140/82. Patient reports usually his blood pressure runs 129/80. I rechecked the blood pressure was still elevated at 148/80. Patient is on hydralazine and amlodipine and labetalol. Plan is that patient will check his blood pressure at home and will keep all the readings. We will see him in 3 days and if the blood pressure is still elevated will increase amlodipine to 10 mg daily EKG was completed today I reviewed it shows normal sinus rhythm without any acute ST changes, QTc interval is,411 no AV block no bundle branch block. Heart rate is 51 beats per minute BPH and recurrent urinary retention he does self-catheterization he follows with Dr. Miner his last PSA was 4.1 in October 2024, he has a recent cystoscopy. Which was unremarkable hyperlipidemia screening we will check a lipid profile left hip pain and osteoarthritis, will check a CT scan of the left hip as patient reports he was supposed to be getting surgery he was told by [facility] 3 years ago. Chronic kidney disease stage IIIa, last creatinine in 2023 was 1.5, we will recheck basic metabolic panel and albumin creatinine ratio is followed by Dr. Hidalgo anxiety and depression he denies any issues with sleep or anxiety or depression, PHQ 9 is 0 diabetes mellitus type 2 HbA1c 5.9 patient is currently on diet control, exercise encouraged dietary restriction. Avoid carbohydrates. 12/23/2024 HTN (hypertension), benign (ICD-10 - I10) 64-year-old gentleman with history of hypertension and impaired fasting glucose, chronic disease stage III benign prostate enlargement and recurrent urinary retention using self-catheterization is here for a complete physical exam. Hypertension blood pressure is 140/82. Patient reports usually his blood pressure runs 129/80. I rechecked the blood pressure was still elevated at 148/80. Patient is on hydralazine and amlodipine and labetalol. Plan is that patient will check his blood pressure at home and will keep all the readings. We will see him in 3 days and if the blood pressure is still elevated will increase amlodipine to 10 mg daily EKG was completed today I reviewed it shows normal sinus rhythm without any acute ST changes, QTc interval is,411 no AV block no bundle branch block. Heart rate is 51 beats per minute BPH and recurrent urinary retention he does self-catheterization he follows with Dr. Miner his last PSA was 4.1 in October 2024, he has a recent cystoscopy. Which was unremarkable hyperlipidemia screening we will check a lipid profile left hip pain and osteoarthritis, will check a CT scan of the left hip as patient reports he was supposed to be getting surgery he was told by [facility] 3 years ago. Chronic kidney disease stage IIIa, last creatinine in 2023 was 1.5, we will recheck basic metabolic panel and albumin creatinine ratio is followed by Dr. Hidalgo anxiety and depression he denies any issues with sleep or anxiety or depression, PHQ 9 is 0 diabetes mellitus type 2 HbA1c 5.9 patient is currently on diet control, exercise encouraged dietary restriction. Avoid carbohydrates. 12/23/2024 Encounter for screening for malignant neoplasm of colon (ICD-10 - Z12.11) 01/04/2025 Unilateral primary osteoarthritis, left hip (ICD-10 - M16.12) 12/23/2024 Impaired fasting glucose (ICD-10 - R73.01) 64-year-old gentleman with history of hypertension and impaired fasting glucose, chronic disease stage III benign prostate enlargement and recurrent urinary retention using self-catheterization is here for a complete physical exam. Hypertension blood pressure is 140/82. Patient reports usually his blood pressure runs 129/80. I rechecked the blood pressure was still elevated at 148/80. Patient is on hydralazine and amlodipine and labetalol. Plan is that patient will check his blood pressure at home and will keep all the readings. We will see him in 3 days and if the blood pressure is still elevated will increase amlodipine to 10 mg daily EKG was completed today I reviewed it shows normal sinus rhythm without any acute ST changes, QTc interval is,411 no AV block no bundle branch block. Heart rate is 51 beats per minute BPH and recurrent urinary retention he does self-catheterization he follows with Dr. Miner his last PSA was 4.1 in October 2024, he has a recent cystoscopy. Which was unremarkable hyperlipidemia screening we will check a lipid profile left hip pain and osteoarthritis, will check a CT scan of the left hip as patient reports he was supposed to be getting surgery he was told by [facility] 3 years ago. Chronic kidney disease stage IIIa, last creatinine in 2023 was 1.5, we will recheck basic metabolic panel and albumin creatinine ratio is followed by Dr. Hidalgo anxiety and depression he denies any issues with sleep or anxiety or depression, PHQ 9 is 0 diabetes mellitus type 2 HbA1c 5.9 patient is currently on diet control, exercise encouraged dietary restriction. Avoid carbohydrates. 09/28/2024 Benign prostatic hyperplasia with lower urinary [...] likely secondary to BPH. He saw a lead web application developer and urologist. Currently he has a indwelling [...] been using NSAID therapy Nephrology Dr. Rocky dwyer has been informed and office referral will [...] patient is aware and will follow through 12/23/2024 Chronic kidney disease, stage 3a (ICD-10 - N18.31) 64-year-old gentleman with history of hypertension and impaired fasting glucose, chronic disease stage III benign prostate enlargement and recurrent urinary retention using self-catheterization is here for a complete physical exam. Hypertension blood pressure is 140/82. Patient reports usually his blood pressure runs 129/80. I rechecked the blood pressure was still elevated at 148/80. Patient is on hydralazine and amlodipine and labetalol. Plan is that patient will check his blood pressure at home and will keep all the readings. We will see him in 3 days and if the blood pressure is still elevated will increase amlodipine to 10 mg daily EKG was completed today I reviewed it shows normal sinus rhythm without any acute ST changes, QTc interval is,411 no AV block no bundle branch block. Heart rate is 51 beats per minute BPH and recurrent urinary retention he does self-catheterization he follows with Dr. Miner his last PSA was 4.1 in October 2024, he has a recent cystoscopy. Which was unremarkable hyperlipidemia screening we will check a lipid profile left hip pain and osteoarthritis, will check a CT scan of the left hip as patient reports he was supposed to be getting surgery he was told by [facility] 3 years ago. Chronic kidney disease stage IIIa, last creatinine in 2023 was 1.5, we will recheck basic metabolic panel and albumin creatinine ratio is followed by Dr. Hidalgo anxiety and depression he denies any issues with sleep or anxiety or depression, PHQ 9 is 0 diabetes mellitus type 2 HbA1c 5.9 patient is currently on diet control, exercise encouraged dietary restriction. Avoid carbohydrates. 12/23/2024 Primary generalized (osteo)arthriti s (ICD-10 - M15.0) 64-year-old gentleman with history of hypertension and impaired fasting glucose, chronic disease stage III benign prostate enlargement and recurrent urinary retention using self-catheterization is here for a complete physical exam. Hypertension blood pressure is 140/82. Patient reports usually his blood pressure runs 129/80. I rechecked the blood pressure was still elevated at 148/80. Patient is on hydralazine and amlodipine and labetalol. Plan is that patient will check his blood pressure at home and will keep all the readings. We will see him in 3 days and if the blood pressure is still elevated will increase amlodipine to 10 mg daily EKG was completed today I reviewed it shows normal sinus rhythm without any acute ST changes, QTc interval is,411 no AV block no bundle branch block. Heart rate is 51 beats per minute BPH and recurrent urinary retention he does self-catheterization he follows with Dr. Miner his last PSA was 4.1 in October 2024, he has a recent cystoscopy. Which was unremarkable hyperlipidemia screening we will check a lipid profile left hip pain and osteoarthritis, will check a CT scan of the left hip as patient reports he was supposed to be getting surgery he was told by [facility] 3 years ago. Chronic kidney disease stage IIIa, last creatinine in 2023 was 1.5, we will recheck basic metabolic panel and albumin creatinine ratio is followed by Dr. Hidalgo anxiety and depression he denies any issues with sleep or anxiety or depression, PHQ 9 is 0 diabetes mellitus type 2 HbA1c 5.9 patient is currently on diet control, exercise encouraged dietary restriction. Avoid carbohydrates. 12/23/2024 Hyperlipidemia, unspecified (ICD-10 - E78.5) 64-year-old gentleman with history of hypertension and impaired fasting glucose, chronic disease stage III benign prostate enlargement and recurrent urinary retention using self-catheterization is here for a complete physical exam. Hypertension blood pressure is 140/82. Patient reports usually his blood pressure runs 129/80. I rechecked the blood pressure was still elevated at 148/80. Patient is on hydralazine and amlodipine and labetalol. Plan is that patient will check his blood pressure at home and will keep all the readings. We will see him in 3 days and if the blood pressure is still elevated will increase amlodipine to 10 mg daily EKG was completed today I reviewed it shows normal sinus rhythm without any acute ST changes, QTc interval is,411 no AV block no bundle branch block. Heart rate is 51 beats per minute BPH and recurrent urinary retention he does self-catheterization he follows with Dr. Miner his last PSA was 4.1 in October 2024, he has a recent cystoscopy. Which was unremarkable hyperlipidemia screening we will check a lipid profile left hip pain and osteoarthritis, will check a CT scan of the left hip as patient reports he was supposed to be getting surgery he was told by [facility] 3 years ago. Chronic kidney disease stage IIIa, last creatinine in 2023 was 1.5, we will recheck basic metabolic panel and albumin creatinine ratio is followed by Dr. Hidalgo anxiety and depression he denies any issues with sleep or anxiety or depression, PHQ 9 is 0 diabetes mellitus type 2 HbA1c 5.9 patient is currently on diet control, exercise encouraged dietary restriction. Avoid carbohydrates. Plan Of Treatment Pending Test Test Name Order Date Echocardiogram 12/10/2023 CT Hip LT WO 12/23/2024 US Renal and Bladder 09/14/2024 Cologuard 12/23/2024 Hemoglobin [id number] 09/14/2024 Future Test Test Name Order Date CBC, No Differential/Platelet-[id number] Insurance Providers Payer Name Payer Address Payer Phone Subscriber Number Group Number Insured Name Patient Relationship to Insured Coverage Start Date Coverage End Date [facility] [address] [place], [place] [phone] [id number] Yefri Rubio Self - patient is the insured Medical (General) History Medical History History ICD Code Personal history of COVID-19 hypertension Chronic kidney disease stage III BPH Surgical History Surgery Date(Month/Year) none
--- NOTE | 2025-04-08 15:12 | HO.NEPHOV_ITS ---
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 He was never hypertensive prior to that and was started on Amlodipine by PCP which has caused edema. Denied headache or visual disturbances. No changes to bowel or bladder habits. Denies dysuria, dribbling, or feeling of incomplete bladder emptying. No chest pain/pressure, palpitations. Denies shortness or breath or difficulty breathing. No fever, chills, nausea, vomiting, diarrhea. No H/O excess NSAID use. He was evaluated in the office recently, Stat USS done at that time showed him to have obstructive uropathy with worsening creatinine. He had a Tovar catheter and was admitted for NATHANIEL. He was also seen by Urology. He continues to have an indwelling Tovar with improvement in serum creatinine. His BP is better controlled. He is seeking a second opinion ( Urology). He has no other new systemic complaints at the time of this visit. [facility] Medical History (Updated 04/08/25 @ 15:36 by Reymundo Tian MD) NATHANIEL (acute kidney injury) Acute retention of urine Hypertension Family History Mother Diabetes type 2 Father Hypertension Social History Household Members: Family Housing: House Do you presently have visiting nurse or other home services: No Alcohol intake: never Patient Tobacco Use Status: Never used Tobacco service: Yes Review of Systems Const All systems reviewed & are unremarkable except as noted in HPI and below Physical Exam Vital Signs: Last Vital Signs BP 160/90 H 04/08/25 15:13 BMI result Body Mass Index 27.5 Const General: comfortable and no acute distress Orientation/consciousness: patient oriented x3 HEENT Head: Yes normocephalic Mouth: Normal oral and palatal mucosa present Eyes EOM: EOMs intact bilaterally Neck Neck: Yes supple Resp Auscultation: clear to auscultation bilaterally Cardio Jugular venous distension: no JVD Rate: regular rate GI Palpation (GI): Soft to palpation Auscultation: normal bowel sounds General: Yes no CVA tenderness Back/Spine/Pelvis Back: no CVA tenderness Skin General skin exam: no rashes or lesions noted Neuro General: patient oriented x3 and moves all extremities Extrem General: Yes no pedal edema Assessment & Plan Assessment & Plan (1) Urinary retention with incomplete bladder emptying: Code(s): R33.9 - Retention of urine, unspecified Category: Medical (2) NATHANIEL (acute kidney injury): Code(s): N17.9 - Acute kidney failure, unspecified Category: Medical (3) CKD stage 3a, GFR 45-59 ml/min: Code(s): N18.31 - Chronic kidney disease, stage 3a Category: Medical (4) Hypertension: Code(s): I10 - Essential (primary) hypertension Category: Medical Qualifiers: Hypertension type: primary hypertension Qualified Code(s): I10 - Essential (primary) hypertension Plan NATHANIEL due to obstructive uropathy; W/U otherwise negative Does SIC. Seeking second opinion Urology- ? voiding trial+ med vs surgical correction F/U blood work reviewed; May need to start Doxazosin Unclear whether he has lost some GFR due to this( likely ) C/W current BP medn for now; No ACEI/ARB Low sodium diet; No NSAID's; Good hydration Answered all questions; F/U 6 months Orders: Orders Creatinine 6 Months I10 - Essential (primary) hypertension, N17.9 - Acute kidney failure, unspecified, N18.31 - Chronic kidney disease, stage 3a, R33.9 - Retention of urine, unspecified Blood Urea Nitrogen 6 Months I10 - Essential (primary) hypertension, N17.9 - Acute kidney failure, unspecified, N18.31 - Chronic kidney disease, stage 3a, R33.9 - Retention of urine, unspecified Electrolytes 6 Months I10 - Essential (primary) hypertension, N17.9 - Acute kidney failure, unspecified, N18.31 - Chronic kidney disease, stage 3a, R33.9 - Retention of urine, unspecified Referrals Urology Referral R33.9 - Retention of urine, unspecified Coding Level of Care Code Est Pt Level 4 (27968) Diagnoses Urinary retention with incomplete bladder emptying R33.9 NATHANIEL (acute kidney injury) N17.9 CKD stage 3a, GFR 45-59 ml/min N18.31 Primary hypertension I10 Hypertension type: primary hypertension
[2025-04-08 15:13] VITALS: BP 140/90; BMI 27.5
== END 2025-04-08 15:45 | disposition home or self-care (01) ==
LOC: HO.HKAS 14:54
PROVIDERS: PCP Hospitalist; Visit Provider Internal Medicine Nephrology
DX: R33.9 Retention of urine, unspecified (principal); N17.9 Acute kidney failure, unspecified; N18.31 Chronic kidney disease, stage 3a; I10 Essential (primary) hypertension
CPT/HCPCS: 99214

== ENCOUNTER 2025-09-08 14:09 | Outpatient (AMB) | payer OTHER, SELFPAY ==
--- OUTSIDE RECORDS SUMMARY | 2025-09-07 10:43 | XMS_ITS ---
Author Organization [facility] Address [address] [place] [address] Care Team Providers Care Sole Inker Name Role Phone LUIS ALBERTO ESPANA Primary Care Provider [phone] Conrado Bales [phone] REASON FOR VISIT A1c Encounters Encounter Location Date Provider Diagnosis [facility] [address] [place] [address] 09/07/2025 Conrado Bales Impaired fasting blood sugar R73.01 Assessments Encounter Date Diagnosis (ICD Code) Assessment Notes Treatment Notes Treatment Clinical Notes Section Notes 09/07/2025 Impaired fasting blood sugar (ICD-10 - R73.01) Plan Of Treatment Pending Test Test Name Order Date Hemoglobin A1c 09/07/2025 Progress Notes * Yefri BYERSDOB:1959 (65 yo M)Acc No.[id number]:09/07/2025 Patient: Radha EAGLEAMANYefri :1960 A ge:65 Y S ex:Male Address:[address] [place] [address] Subjective: * Chief Complaints: * A 1c * Medical History: * Surgical History: * Hospitalization/Major Diagno stic Procedure: * Medications: Objective: * Vitals: * Physical Examination: Assessment: * Assessment: 1. I mpaired fasting blood sugar - R73.01 Plan: * Treatment: * Procedure Codes: * true * Date: Generated for Printi ng/Faxing/eTransmitting on: 11/09/2024 10:05 PM EST
--- NOTE | 2025-09-08 14:35 | HO.NEPHOV ---
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 He has been having edema. His serum creatinine has improved to 1.4. He self catheterizes 4 times a day. No chest pain/pressure, palpitations. Denies shortness or breath or difficulty breathing. No fever, chills, nausea, vomiting, diarrhea. No H/O excess NSAID use. His BP is better controlled at home. He has no other new systemic complaints at the time of this visit. [facility] Medical History (Updated 09/08/25 @ 20:43 by Reymundo Tian MD) NATHANIEL (acute kidney injury) Acute retention of urine Hypertension Family History Mother Diabetes type 2 Father Hypertension Social History Household Members: Family Housing: House Do you presently have visiting nurse or other home services: No Alcohol intake: never Patient Tobacco Use Status: Never used Tobacco service: Yes Review of Systems Const All systems reviewed & are unremarkable except as noted in HPI and below Physical Exam Vital Signs: Last Vital Signs Pulse 63 09/08/25 14:36 BP 164/90 H 09/08/25 14:36 Pulse Ox 96 09/08/25 14:36 Oxygen Delivery Method Room Air 09/08/25 14:36 BMI result Body Mass Index 28.8 Const General: comfortable and no acute distress Orientation/consciousness: patient oriented x3 HEENT Head: Yes normocephalic Mouth: Normal oral and palatal mucosa present Eyes EOM: EOMs intact bilaterally Neck Neck: Yes supple Resp Auscultation: clear to auscultation bilaterally Cardio Jugular venous distension: no JVD Rate: regular rate Heart sounds: Murmur heart sound present GI Palpation (GI): Soft to palpation Auscultation: normal bowel sounds General: Yes no CVA tenderness Back/Spine/Pelvis Back: no CVA tenderness Skin General skin exam: no rashes or lesions noted Neuro General: patient oriented x3 and moves all extremities Extrem General: Yes edema Results Reviewed Nephrology Results: Renal US 09/19/24 Assessment & Plan Assessment & Plan (1) Hypertension: Code(s): I10 - Essential (primary) hypertension Category: Medical Qualifiers: Hypertension type: primary hypertension Qualified Code(s): I10 - Essential (primary) hypertension (2) CKD stage 3a, GFR 45-59 ml/min: Code(s): N18.31 - Chronic kidney disease, stage 3a Category: Medical (3) Edema: Code(s): R60.9 - Edema, unspecified Category: Medical Qualifiers: Edema type: localized Qualified Code(s): R60.0 - Localized edema Plan NATHANIEL due to obstructive uropathy; W/U otherwise negative Does SIC. Seeking second opinion Urology- med vs surgical correction Unclear whether he has lost some GFR due to this( likely ) C/W current BP medn for now; No ACEI/ARB Started lasix 40 mg daily; Ordered urine protein/cr ratio Low sodium diet; No NSAID's; Good hydration Answered all questions; F/U given Orders: Orders Protein Creatinine Ratio, Ur 4 Weeks I10 - Essential (primary) hypertension, N18.31 - Chronic kidney disease, stage 3a, R60.9 - Edema, unspecified Medications: Resumed furosemide 40 mg PO DAILY 30 tabs 1RF furosemide 40 mg PO DAILY 10 tabs 0RF Coding Level of Care Code Est Pt Level 4 (98945) Diagnoses Primary hypertension I10 Hypertension type: primary hypertension CKD stage 3a, GFR 45-59 ml/min N18.31 Localized edema R60.0 Edema type: localized
[2025-09-08 14:36] VITALS: BP 164/90; PULSE 63; O2SAT 96; BMI 28.8
--- OUTSIDE RECORDS SUMMARY | 2025-09-08 22:05 | XMS_ITS ---
Author Name [facility] Organization Unknown History of Medication Use Medication Directions Dispensed Refills Start Date End Date Stat us No known medications No known medications active Encounters Encounter Type Encounter Reason Primary Diagnosis Location Date Ambulatory Retention of urine, unspecified Retention of urine, unspecified [facility] 05/25/2025 Care Team Organization Name Specialty Phone Email Start Date End Da te [facility] Primary Care 05/10/2025
--- OUTSIDE RECORDS SUMMARY | 2025-09-08 22:06 | XMS_ITS | Patient Health Record ---
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 Metabolic Panel (14-3 08362 Reviewed date:09/14/2024 07:58:10 AM Interpretation: Performing Lab:[facility] [place], [address] [place] [address], Phone - [phone], Director - Jonathan Notes/Report: Glucose 102 70-99 [...] IU/L ALT (SGPT) 12 0-44 IU/L LP+Non-HDL Cholesterol-00957 5 Reviewed date:09/14/2024 07:58:17 AM Interpretation: Performing Lab:[facility] [place], [address] [facility], Phone - [phone], Director - Jonathan Notes/Report: Cholesterol, Total 159 100-199 mg/dL Triglycerides 83 0-149 mg/dL HDL Cholesterol 54 >39 mg/dL VLDL Cholesterol Danny 16 5-40 mg/dL LDL Chol Calc ([facility]) 89 0-99 mg/dL Non-HDL Cholesterol 105 0-129 mg/dL Prostate-Specific Ag-[id number] Reviewed date:09/14/2024 07:57:35 AM Interpretation: Performing Lab:[facility] [place], [address] [facility], [place], Phone - [phone], Director - Jonathan Notes/Report: Prostate Specific Ag 7.1 0.0-4.0 ng/mL . According to the [employer], Serum PSA should decrease and [...] presence or absence of malignant disease. Woodrow SingularuIA methodology. PSA Total (Reflex To Free)-4 82204 Reviewed date:12/13/2024 10:34:32 AM Interpretation: Performing Lab:[facility] [place], [address] [place] [address], Phone - [phone], Director - Jonathan Notes/Report: Prostate Specific Ag 4.1 0.0-4.0 ng/mL Woodrow ECLIA methodology. . According to the [employer], Serum PSA should decrease and [...] of prostate cancer for men with non-suspicious JACQEULIN results and total PSA between 4 and 10 ng/mL, by patient age (Svetlana et al, MARITA 1998, 279:1542). % Free PSA 50-64 yr 65-75 yr 0.00-10.00% 56% 55% 10.01-15.00% 24% 35% 15.01-20.00% 17% 23% 20.01-25.00% 10% 20% >25.00% 5% 9% Please note: Svetlana et al did not make specific recommendations regarding the use of percent free PSA for any other population of men. Basic Metabolic Panel (8)-32 9620 Reviewed date:11/06/2024 09:06:36 AM Interpretation: Performing Lab:[facility], [address] [facility], [place], Phone - [phone], Director - MDJodry Notes/Report: Glucose 111 70-99 mg/dL BUN 24 8-27 mg/dL Creatinine 1.56 0.76-1.27 mg/dL eGFR 50 >59 mL/min/1.73 BUN/Creatinine Ratio 15 10-24 Sodium 140 134-144 mmol/L Potassium 4.3 3.5-5.2 mmol/L Chloride 100 96-106 mmol/L Carbon Dioxide, Total 24 20-29 mmol/L Calcium 9.6 8.6-10.2 mg/dL CBC, Platelet, No Differenti al-[id number] Reviewed date:12/20/2024 11:34:30 AM Interpretation: Performing Lab:[facility], [address] [facility], [place], Phone - [phone], Director - MDJodry Notes/Report: WBC 7.1 3.4-10.8 x10E3/uL RBC 4.71 4.14-5.80 x10E6/uL Hemoglobin 14.1 13.0-17.7 g/dL Hematocrit 42.8 37.5-51.0 % MCV 91 79-97 fL MCH 29.9 26.6-33.0 pg MCHC 32.9 31.5-35.7 g/dL RDW 13.0 11.6-15.4 % Platelets 208 150-450 x10E3/uL Hemoglobin [id number]-[id number] Reviewed date:12/20/2024 11:34:12 AM Interpretation: Performing Lab:[facility], [address] [facility], Phone - [phone], Director - MDLidiadry Notes/Report: Hemoglobin A1c 5.9 4.8-5.6 % . Prediabetes: 5.7 - 6.4 Diabetes: >6.4 Glycemic control for adults with diabetes: <7.0 Comp. Metabolic Panel (13)-3 [id number] Reviewed date:09/28/2024 08:06:07 AM Interpretation: Performing Lab:[facility], [address] [facility], Phone - [phone], Director - MDJodry Notes/Report: Glucose 125 70-99 [...] 44-121 IU/L AST (SGOT) 16 0-40 IU/L Comp. Metabolic Panel (13)-3 40462 Reviewed date:01/18/2025 07:23:26 AM Interpretation: Performing Lab:[facility], [address] [facility], Phone - [phone], Director - MDJodry Notes/Report: Glucose 113 70-99 mg/dL BUN 26 [...] 0-40 IU/L Lipid Panel With LDL/HDL Rat io-[id number] Reviewed date:01/18/2025 07:23:05 AM Interpretation: Performing Lab:[facility], [address] [place] [address], Phone - [phone], Director - MDdry Notes/Report: Cholesterol, Total 169 100-199 mg/dL Triglycerides 104 0-149 mg/dL HDL Cholesterol 53 >39 mg/dL VLDL Cholesterol Danny 19 5-40 mg/dL LDL Chol Calc ([facility]) 97 0-99 mg/dL LDL/HDL Ratio 1.8 0.0-3.6 ratio LDL/HDL Ratio Men Women 1/2 Avg.Risk 1.0 1.5 Avg.Risk 3.6 3.2 2X Avg.Risk 6.2 5.0 3X Avg.Risk 8.0 6.1 Albumin/Creatinine Ratio,Uri ne-[id number] Reviewed date:01/18/2025 07:23:14 AM Interpretation: Performing Lab:[facility], [address] [place] [address], [place], Phone - [phone], Director - [facility] Notes/Report: Creatinine, Urine TNP Test not performed. Patient was unable to provide a self-collected specimen for the requested testing. The following test(s) were not performed: Albumin, Urine TNP Test not perf ormed Request Problem TNP Test not performed. Patient was unable to provide a self-collected specimen for the requested testing. The following test(s) were not performed: TEST: [id number] Albumin/Creatinine Ratio,Urine Albumin, 24-Hr Urine-[id number] Reviewed date:09/15/2024 04:30:55 PM Interpretation: Performing Lab:[facility], [address] [place] [address], [place], Phone - [phone], Director - LAMelissay Notes/Report: Albumin, Urine 8.4 Not Estab. ug/mL Albumin,Urine mg/day 26 0-29 mg/day Normal: 0 - 29 Moderately increased: 30 - 300 Severely increased: >300 Reason For Referral Reason acute renal failure please send to Dr. Rocky Beard Diagnosis 1 Acute kidney failure , unspecified (N17.9) Referral Organization [facility] Referring Provider First Name Lois Referring Provider Last Name Olamide Referring Provider Speciality Internal edicine Referred Provider Specialty Nephrology General Notes Faxed to [facility]. I called the office to make an appt but the referral has to be reviewed prior to scheduling per Rene Christianson Kayla 09/14/2024 03:55:43 PM > Referral Priority Urgent Reason elevated PSA of 7.1 with renal failure Diagnosis 1 Elevated prostate sp ecific antigen [PSA] (R97.20) Referral Organization [facility] Referring Provider First Name Lois Referring Provider Last Name Olamide Referring Provider Speciality Internal edicine Referred Provider Specialty Urology General Notes referral faxed to [facility] Katrina 09/17/2024 11:15:37 AM > Referral Priority Routine Reason advanced left hip lidia int osteoarthritis, Please evaluate and treat Diagnosis 1 Unilateral primary o steoarthritis, left hip (M16.12) Referral Organization [facility] Referring Provider First Name LUIS ALBERTO Referring Provider Last Name MALORIE Referring Provider Speciality Internal edicine Referred Provider Specialty Orthopedic S urgery General Notes Please call the [facility] ent to schedule the appointment, Kelly French 01/04/2025 04:25:48 PM > Referral Priority Routine Reason left hip pain plea se evaluate and treat Diagnosis 1 Pain in left hip (M2 5.552) Referral Organization [facility] Referring Provider First Name LUIS ALBERTO Referring Provider Last Name ARISTIDES Referring Provider Speciality Internal edicine Referred Provider [...] Status W/U Status Risk Notes Problem Hyperlipidemia (69497825) Hyperlipidemia, unspecified (E78.5) Active confirmed Problem Essential hypertension (60631662) Essential (primary) hypertension (I10) Active confirmed Problem Primary generalised osteoarthritis (340038442) Primary generalized (osteo)arthritis (M15.0) Active confirmed Problem Localized, primary osteoarthritis of the pelvic region and thigh (597523678) Unilateral primary osteoarthritis, left hip (M16.12) Active confirmed Problem Lower urinary tract symptoms due to benign prostatic hypertrophy (90101747023052) Benign prostatic hyperplasia with lower urinary tract symptoms (N40.1) Active confirmed Problem Chronic kidney disease stage 3A (disorder) (337810900) Chronic kidney disease, stage 3a (N18.31) Active confirmed Problem Essential hypertension (89881222) HTN (hypertension), benign (I10) Active confirmed Vital Signs Heart Rate 56 /min 12/23/2024 Temperature 97.6 degrees Fahrenheit 12/23/2024 Oximetry 99 % 12/23/2024 Blood pressure diastolic 82 mm Hg 12/23/2024 Height 75.75 in 12/23/2024 Blood pressure systolic 140 mm Hg 12/23/2024 Weight 219.6 lbs 12/23/2024 BMI 26.9 kg/m2 12/23/2024 Encounters Encounter Location Date Provider Diagnosis [facility] [address] [facility] [address] [place] [address] 09/14/2024 Aroosa Alam Acute renal disease N28.9 ; HTN (hypertension), benign I10 and Impaired fasting blood sugar R73.01 [facility] [address] [facility] [address] [place] [address] 09/28/2024 [facility] discharge follow-up Z09 ; Essential (primary) hypertension I10 and Benign prostatic hyperplasia with lower urinary tract symptoms N40.1 [facility] [address] [facility] [address] [place] [address] 12/23/2024 Demondelmer Quiñonez HTN (hypertension), benign I10 ; Annual physical exam Z00.00 ; Impaired fasting glucose R73.01 ; Chronic kidney disease, stage 3a N18.31 ; Primary generalized (osteo)arthritis M15.0 and Hyperlipidemia, unspecified E78.5 [facility] [address] [facility] [address] [place] [address] 09/17/2024 [facility] [address] [facility] [address] [place] [address] 09/17/[address] [place] [address] 09/28/[address] [place] [address] 12/10/2024 [facility] Elevated prostate specific antigen [PSA] R97.20 [facility] [address] [facility] [address] [place] [address] 12/23/2024 Lois Quiñonez [address] [place] [address] 12/23/2024 Lois Adriennemani Encounter for screening for malignant neoplasm of colon Z12.[address] [place] [address] 01/04/2025 Ghadeer Solum Unilateral primary osteoarthritis, left hip M16.12 [facility] [address] [facility] [address] [place] [address] 09/07/2025 Ghadeer Mazloum Impaired fasting blood sugar R73.01 [facility] [address] [facility] [address] [place] [address] 12/15/[address] [place] [address] 12/16/[address] [place] [address] 01/31/2025 [facility] [address] [facility] [address] [place] [address] 02/05/2025 [facility] [address] [facility] [address] [place] [address] 07/23/2025 [facility] [address] [facility] [address] [place] [address] 07/23/2025 Jacoboadevitaliy Bales HTN (hypertension), benign I10 and Bilateral leg edema R60.0 [facility] [address] [facility] [address] [place] [address] 07/23/2025 [facility] Assessments Encounter Date Diagnosis (ICD Code) Assessment Notes Treatment Notes Treatment Clinical Notes Section Notes 09/07/2025 Impaired fasting blood sugar (ICD-10 - R73.01) 07/23/2025 HTN (hypertension), benign (ICD-10 - I10) 01/04/2025 Unilateral primary osteoarthritis, left hip (ICD-10 - M16.12) 12/23/2024 Encounter for screening for malignant neoplasm of colon (ICD-10 - Z12.11) 12/23/2024 Annual physical exam (ICD-10 - Z00.00) [...] be getting surgery he was told by [facility] 3 years ago. Chronic kidney disease [...] be getting surgery he was told by [facility] 3 years ago. Chronic kidney disease [...] control, exercise encouraged dietary restriction. Avoid carbohydrates. 12/10/2024 Elevated prostate specific antigen [PSA] (ICD-10 - R97.20) 09/28/2024 Essential (primary) hypertension (ICD-10 - I10) [...] likely secondary to BPH. 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 Currently he has a indwelling [...] likely secondary to BPH. 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 Currently he has a indwelling catheter and is going to follow-up with urology in the next 2-3 days. Hypertension. Blood pressure well controlled on current regimen as mentioned above. Low sodium diet recommended. Avoid NSAIDs and take Tylenol for the pain. 09/14/2024 Acute renal disease (ICD-10 - N28.9) [...] is aware and will follow through 09/28/2024 Benign prostatic hyperplasia with lower urinary [...] likely secondary to BPH. 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 Currently he has a indwelling catheter and is going to follow-up with urology in the next 2-3 days. Hypertension. Blood pressure well controlled on current regimen as mentioned above. Low sodium diet recommended. Avoid NSAIDs and take Tylenol for the pain. 12/23/2024 Impaired fasting glucose (ICD-10 - R73.01) [...] be getting surgery he was told by [facility] 3 years ago. Chronic kidney [...] control, exercise encouraged dietary restriction. Avoid carbohydrates. 07/23/2025 Bilateral leg edema (ICD-10 - R60.0) 12/23/2024 Chronic kidney disease, stage 3a (ICD-10 [...] be getting surgery he was told by [facility] 3 years ago. Chronic kidney disease [...] control, exercise encouraged dietary restriction. Avoid carbohydrates. 09/14/2024 Impaired fasting blood sugar (ICD-10 - [...] is aware and will follow through 12/23/2024 Primary generalized (osteo)arthriti s (ICD-10 - [...] be getting surgery he was told by [facility] 3 years ago. Chronic kidney disease [...] be getting surgery he was told by [facility] 3 years ago. Chronic kidney disease [...] Renal and Bladder 09/14/2024 Cologuard 12/23/2024 Hemoglobin [id number] 09/14/2024 Hemoglobin A1c 09/07/2025 Future Test Test Name Order Date CBC, No Differential/Platelet-[id number] Insurance Providers Payer Name Payer Address Payer Phone Subscriber Number Group Number Insured Name Patient Relationship to Insured Coverage Start Date Coverage End Date [facility] [address] [place] [address] [id number] Yefri Rubio Self - patient is the insured Medical (General) History Medical History History ICD Code Personal history of COVID-19 hypertension Chronic kidney disease stage III BPH Surgical History Surgery Date(Month/Year) none
--- OUTSIDE RECORDS SUMMARY | 2025-09-08 22:06 | XMS_ITS | Clinical Summary ---
Author Organization [facility] Address [address] [place] [address] Care Team Providers Care Photographic Hand Developer Name Role Phone System, Provider Not In Primary Care Provider Un available Medications No known medications Active Problems No known active problems Social History Tobacco Use Types Packs/Day Years Used Date Smoking Tobacco: Never Assessed Sex and Gender Information Value Date Recorded Sex Assigned at Not on file Legal Sex Male 2:12 PM EDT Gender Identity Not on file Sexual Orientation Not on file Plan of Treatment Upcoming Encounters Date Type Department Care Team (Late st Contact Info) Description 10/14/2025 8:00 AM EST Procedure visit [facility] Urologic Surgery [address] [address] Asuncion Faulkner PA-C [address] [place] [address] [place] [address] [phone] Health Maintenance Due Date Last Done Comments Hepatitis C Virus Screening 1961 HIV Screening 1974 DTaP/Tdap/Td Vaccines (1 - Tdap) 1980 Colonoscopy 2006 Pneumococcal Vaccines 50+ (1 of 1 - PCV) 2011 Zoster (Shingles) Vaccine (1 of 2) 2011 Influenza Vaccine 04/30/2025 06/12/2013 COVID-19 Vaccine ( - 2024-2 6 season) 2025 RSV Vaccine 50 years and old er and Patients (1 - 1-dose 75+ series) 2036 Hepatitis B Vaccines Aged Out No long er eligible based on patient's age to complete this topic Insurance [facility] [employer] [facility] Care Teams Photographic Hand Developer Relationship Specialty Start Date End Date System, Provider Not In PCP - General 05/10/25
== END 2025-09-08 15:05 | disposition home or self-care (01) ==
LOC: HO.HKA 14:09
PROVIDERS: PCP Hospitalist; Visit Provider Internal Medicine Nephrology
DX: I10 Essential (primary) hypertension (principal); N18.31 Chronic kidney disease, stage 3a; R60.0 Localized edema
CPT/HCPCS: 99214